=== PATIENT | male | born 1975 | race Caucasian/White ===

== ENCOUNTER → 2017-10-24 | Outpatient (CLI) | payer SELFPAY ==
[~2017-10-24] MED LIST: IOHEXOL 350 MG/ML 100 ML (OMNIPAQUE 350) VIAL IV ONE; NS 100 ML (IVPB) BAG IV ONE
--- NOTE | 2017-10-24 11:37 | Diagnostic Imaging Report ---
PROCEDURE: CT abdomen and pelvis with contrast. TECHNIQUE: Multiple contiguous axial images were obtained through the abdomen and pelvis after administration of intravenous contrast. INDICATION: Jaundice for 3-4 weeks. History of cirrhosis. FINDINGS: There are minimal areas of atelectasis seen in the lung bases. There is a 1.2 cm nodule seen in the right pericardial fat anterior to the right hemidiaphragm which may represent an enlarged lymph node. In the abdomen, there is moderate ascites. The liver is mildly enlarged and is heterogeneous with a lobulated contour suggestive of cirrhosis. There is no focal mass identified. The gallbladder demonstrates wall thickening and pericholecystic fluid which could be secondary to liver disease and ascites and not necessarily related to cholecystitis. The spleen is significantly enlarged measuring 21.4 cm anteroposteriorly. There is evidence of portal hypertension with dilated varices in the upper abdomen. Reactive lymph nodes are also suggested around the celiac trunk up to a centimeter in size. The CBD and bile ducts do not appear to be dilated. The inferior aspect of the pancreatic head demonstrates a hypodensity that is poorly defined with fluid attenuation, which may relate to cystic lesions. The kidneys have symmetric enhancement and contrast excretion. No hydronephrosis. The abdominal aorta is normal in caliber. No para-aortic significantly enlarged lymph node seen. The pelvis demonstrates mildly enlarged internal iliac lymph nodes up to 1.2 cm in size on the right side and 1 cm on the left, probably reactive. The osseous structures appear grossly unremarkable. IMPRESSION: 1. Hepatosplenomegaly with evidence of cirrhosis and portal hypertension. There is moderate ascites. 2. Hypodense lesions in the inferior aspect of the pancreatic head are suggestive of nonspecific cystic lesions. Followup exam is recommended. 3. Indeterminate 1.2 cm nodule anterior to the right hemidiaphragm and the right pericardial fat pad. This could be a reactive incidental lymph node. Dictated by: Dictated on workstation # [id number]
== END ==
LOC: RAD 09:53
PROVIDERS: ATTEND Family Medicine
DX: K74.60 Unspecified cirrhosis of liver (principal); R16.2 Hepatomegaly with splenomegaly, not elsewhere classified; K76.6 Portal hypertension; K86.89 Other specified diseases of pancreas; J98.6 Disorders of diaphragm
CPT/HCPCS: 74177

== ENCOUNTER → 2017-10-24 | Outpatient (CLI) | payer SELFPAY ==
[2017-10-24 14:05] LABS: ALANINE AMINOTRANSFERASE 67 U/L (0-55); ALBUMIN 2.4 GM/DL (3.2-4.5); ANION GAP 14 MMOL/L (5-14); ASPARTATE AMINO TRANSFERASE 113 U/L (5-34); BILIRUBIN,TOTAL 29.4 MG/DL (0.1-1.0); BLOOD UREA NITROGEN 15 MG/DL (7-18); BUN/CREATININE RATIO 13; CALCIUM 7.1 MG/DL (8.5-10.1); CARBON DIOXIDE 17 MMOL/L (21-32); CHLORIDE 101 MMOL/L (98-107); CREATININE SERUM 1.13 MG/DL (0.60-1.30); GFR ESTIMATED > 60; GLUCOSE 180 MG/DL (70-105); SODIUM 132 MMOL/L (135-145); TOTAL PROTEIN 7.1 GM/DL (6.4-8.2)
[2017-10-24 14:18] LABS: POTASSIUM 2.4 MMOL/L (3.6-5.0)
[2017-10-24 16:13] LABS: BILIRUBIN,INDIRECT 14.4 MG/DL
[2017-10-24 16:56] LABS: BILIRUBIN,DIRECT 20.8 MG/DL (0.0-0.3)
== END ==
LOC: LAB 13:25
PROVIDERS: ATTEND Family Medicine
DX: K74.60 Unspecified cirrhosis of liver (principal)
CPT/HCPCS: 36415; 80053; 80074; 82247; 82248

== ENCOUNTER 2017-10-25 08:10 | Outpatient (RCR) | payer SELFPAY ==
[2017-10-27] MEDS ORDERED: POTA10TA10 (12:48)
== END 2018-01-23 | disposition home or self-care (01) ==
LOC: LAB 08:10
PROVIDERS: ATTEND Family Medicine
DX: E87.6 Hypokalemia (principal)
CPT/HCPCS: 36415; 84132

== ENCOUNTER → 2017-10-25 | Outpatient (CLI) | payer SELFPAY ==
[~2017-10-25] MED LIST changes: -IOHEXOL 350 MG/ML 100 ML (OMNIPAQUE 350) VIAL IV ONE; -NS 100 ML (IVPB) BAG IV ONE; +POTA10TA10
[2017-10-25 08:39] LABS: MEAN PLATELET VOLUME 10.2 FL (7.4-10.4); RED BLOOD COUNT 3.21 10^6/uL (4.35-5.85); RED CELL DISTRIBUTION WIDTH 17.6 % (10.0-14.5); WHITE BLOOD COUNT 9.1 10^3/uL (4.3-11.0)
[2017-10-25 08:46] LABS: PROTHROMBIN TIME PATIENT 22.4 SEC (12.2-14.7)
== END ==
LOC: LAB 08:09
PROVIDERS: ATTEND Family Medicine
DX: K70.10 Alcoholic hepatitis without ascites (principal); K74.60 Unspecified cirrhosis of liver
CPT/HCPCS: 36415; 85027; 85610

== ENCOUNTER 2017-10-27 12:01 | Emergency (ER) | payer SELFPAY ==
[~2017-10-27] VITALS: Ht 182.9 cm; Wt 108.9 kg
[2017-10-27] MEDS ORDERED: POTA10TA10 (12:48)
[2017-10-27 12:53] LABS: BASOPHILS % (AUTO) 0 % (0-10); EOSINOPHILS # (AUTO) 0.1 10^3/uL (0.0-0.3); EOSINOPHILS % (AUTO) 1 % (0-10); HEMATOCRIT 34 % (40-54); HEMOGLOBIN 11.9 G/DL (13.3-17.7); LYMPHOCYTES # (AUTO) 1.3 X 10^3 (1.0-4.0); LYMPHOCYTES % (AUTO) 12 % (12-44); MEAN CORPUSCULAR HEMOGLOBIN 37 PG (25-34); MEAN CORPUSCULAR HGB CONC 36 G/DL (32-36); MEAN CORPUSCULAR VOLUME 104 FL (80-99); MEAN PLATELET VOLUME 10.2 FL (7.4-10.4); MONOCYTES # (AUTO) 1.2 X 10^3 (0.0-1.0); MONOCYTES % (AUTO) 11 % (0-12); NEUTROPHILS # (AUTO) 8.3 X 10^3 (1.8-7.8); NEUTROPHILS % (AUTO) 76 % (42-75); PLATELET COUNT 167 10^3/uL (130-400); RED BLOOD COUNT 3.21 10^6/uL (4.35-5.85); RED CELL DISTRIBUTION WIDTH 17.3 % (10.0-14.5); WHITE BLOOD COUNT 10.9 10^3/uL (4.3-11.0)
--- NOTE | 2017-10-27 13:01 | ED GI ---
General Chief Complaint: Abdominal/GI Problems Stated Complaint: LIVER ISSUES--REFERRED BY DR NEWMAN Nursing Triage Note: AMBULATED TO ROOM 04. STATES HE WAS SEEN AT DR KAMARA OFFICE 2 WEEKS AGO AND LABS WERE DRAWN. SENT THOSE TO . HE WAS CONTACTED BY TODAY AND TOLD TO GO TO THE NEAREST ER TO BE TRANSFERRED. PT IS EXTREMLY JAUNDICED WITH A LARGE ABD. STATES IT FEELS THOUGH A ROPE IS CUTTING THRU IS ABD. Sepsis Screen: No Definite Risk Source of Information: Patient Exam Limitations: No Limitations History of Present Illness Time Seen By Provider: 12:45 Initial Comments Here with report of swelling of his legs and abdominal distention. Patient was called by his primary doctor and the GI clinic and was instructed to go to the ER because he had significant impairment and his labs and there is concern about his overall safety and well-being. Patient has known liver failure and is currently being set up by his primary doctor with the hepatology clinic at due to this. He was a moderate drinker whiskey until one month ago when he quit. States that he has not drank sats. Unsure what happened. States that he was fine and then one day he was swollen up and his labs were bad. Denies blood in his stools. Denies vomiting. Denies breathing problems. Complains of tingling in his hands and feet and swelling of his arms and legs as well as his abdomen. Timing/Duration: 1 Week, Getting Worse Severity/Quality: Mild, Aching Location: Generalized Abdomen Radiation: No Radiation Activities at Onset: None Associated Symptoms: No Back Pain, No Chest Pain, No Fever/Chills, Fatigue, No Nausea/Vomiting, No Shortness of Air, Swelling/Mass in Abdomen, No Weakness Allergies and Home Medications Allergies Coded Allergies: No Known Drug Allergies (Unverified , 10/27/17) Home Medications Potassium Chloride 10 Meq Tablet.er, (Reported) Review of Systems Constitutional: see HPI, No chills, No fever, malaise, weakness EENTM: No Symptoms Reported Respiratory: No Symptoms Reported Cardiovascular: No Symptoms Reported Gastrointestinal: Abdomen Distended, Abdominal Pain, Denies Nausea, Denies Rectal Bleeding, Denies Vomiting Genitourinary: No Symptoms Reported Musculoskeletal: no symptoms reported Skin: see HPI, change in color, No rash Psychiatric/Neurological: Denies Anxiety, Numbness (hands and feet), Tingling, Weakness Endocrine: No Symptoms Reported All Other Systems Reviewed Negative Unless Noted: Yes Past Tykqhtv-[id number]-Jhsfpv Hx Patient Social History Alcohol Use: Regular Use Number of Drinks Today: 0 Recreational Drug Use: No Smoking Status: Current Everyday Smoker Recent Foreign Travel: No Contact w/Someone Who Travel: No Recent Infectious Disease Expo: No Recent Hopitalizations: No Surgeries History of Surgeries: No Respiratory History of Respiratory Disorde: No Cardiovascular History of Cardiac Disorders: No Neurological History of Neurological Disord: No Genitourinary History of Genitourinary Disor: No Gastrointestinal History of Gastrointestinal Di: No Musculoskeletal History of Musculoskeletal Dis: No Endocrine History of Endocrine Disorders: No HEENT History of HEENT Disorders: No Cancer History of Cancer: No Psychosocial History of Psychiatric Problem: No Integumentary History of Skin or Integumenta: No Reviewed Nursing Assessment Reviewed/Agree w Nursing PMH: Yes Family Medical History Significant Family History: No Pertinent Family Hx Physical Exam Vital Signs VS - Last 72 Hours, by Label 10/27/17 12:20 Temp 98.1 Pulse 97 Resp 18 B/P (MAP) 119/81 (94) Pulse Ox 100 O2 Delivery Room Air Capillary Refill : Less Than 3 Seconds General Appearance: WD/WN, no apparent distress HEENT: PERRL/EOMI, pharynx normal, scleral icterus (R), scleral icterus (L) Neck: full range of motion, supple Respiratory: lungs clear Cardiovascular: regular rate, rhythm, no murmur Peripheral Pulses: 2+ Dorsalis Pedis (R), 2+ Left Dors-Pedis (L), 2+ Radial Pulses (R), 2+ Radial Pulses (L) Gastrointestinal: soft, distended, tenderness (lower abdomen), other (moderate to severe abdominal ascites noted) Extremities: non-tender, normal inspection Back: normal inspection, no CVA tenderness, no vertebral tenderness ( full) Neurologic/Psychiatric: alert, oriented x 3 Skin: warm/dry, jaundice Focused Exam Evaluation Lactate Level Laboratory Tests 10/27/17 12:35: Lactic Acid Level 1.14 Lactic Acid Level Laboratory Tests Test 10/27/17 12:35 Lactic Acid Level 1.14 MMOL/L (0.50-2.00) Progress/Results/Core Measures Results/Orders Lab Results Laboratory Tests Test 10/27/17 12:35 10/27/17 13:49 Range/Units White Blood Count 10.9 4.3-11.0 10^3/uL Red Blood Count 3.21 L 4.35-5.85 10^6/uL Hemoglobin 11.9 L 13.3-17.7 G/DL Hematocrit 34 L 40-54 % Mean Corpuscular Volume 104 H 80-99 FL Mean Corpuscular Hemoglobin 37 H 25-34 PG Mean Corpuscular Hemoglobin Concent 36 32-36 G/DL Red Cell Distribution Width 17.3 H 10.0-14.5 % Platelet Count 167 130-400 10^3/uL Mean Platelet Volume 10.2 7.4-10.4 FL Neutrophils (%) (Auto) 76 H 42-75 % Lymphocytes (%) (Auto) 12 12-44 % Monocytes (%) (Auto) 11 0-12 % Eosinophils (%) (Auto) 1 0-10 % Basophils (%) (Auto) 0 0-10 % Neutrophils # (Auto) 8.3 H 1.8-7.8 X 10^3 Lymphocytes # (Auto) 1.3 1.0-4.0 X 10^3 Monocytes # (Auto) 1.2 H 0.0-1.0 X 10^3 Eosinophils # (Auto) 0.1 0.0-0.3 10^3/uL Basophils # (Auto) 0.0 0.0-0.1 10^3/uL Prothrombin Time 22.4 H 12.2-14.7 SEC INR Comment 2.0 H 0.8-1.4 Activated Partial Thromboplast Time 40 H 24-35 SEC Sodium Level 133 L 135-145 MMOL/L Potassium Level 3.3 L 3.6-5.0 MMOL/L Chloride Level 103 98-107 MMOL/L Carbon Dioxide Level 20 L 21-32 MMOL/L Anion Gap 10 5-14 MMOL/L Blood Urea Nitrogen 20 H 7-18 MG/DL Creatinine 0.92 0.60-1.30 MG/DL Estimat Glomerular Filtration Rate > 60 BUN/Creatinine Ratio 22 Glucose Level 129 H 70-105 MG/DL Lactic Acid Level 1.14 0.50-2.00 MMOL/L Calcium Level 8.0 L 8.5-10.1 MG/DL Magnesium Level 1.6 L 1.8-2.4 MG/DL Total Bilirubin 27.1 H 0.1-1.0 MG/DL Aspartate Amino Transf (AST/SGOT) 161 H 5-34 U/L Alanine Aminotransferase (ALT/SGPT) 83 H 0-55 U/L Alkaline Phosphatase 154 H 40-136 U/L Ammonia 54 H 11-32 UMOL/L Total Protein 7.3 6.4-8.2 GM/DL Albumin 2.3 L 3.2-4.5 GM/DL Lipase 197 H 8-78 U/L Acetaminophen Level < 10 L 10-30 UG/ML Serum Alcohol < 10 <10 MG/DL Urine Color KRYSTAL H Urine Clarity CLEAR Urine pH 6.5 5-9 Urine Specific [place] 1.010 L 1.016-1.022 Urine Protein 1+ H NEGATIVE Urine Glucose (UA) NEGATIVE NEGATIVE Urine Ketones NEGATIVE NEGATIVE Urine Nitrite POSITIVE H NEGATIVE Urine Bilirubin 3+ H NEGATIVE Urine Urobilinogen 12 H NORMAL MG/DL Urine Leukocyte Esterase 1+ H NEGATIVE Urine RBC (Auto) 1+ H NEGATIVE Urine RBC RARE /HPF Urine WBC RARE /HPF Urine Squamous Epithelial Cells NONE /HPF Urine Crystals NONE /LPF Urine Bacteria TRACE /HPF Urine Casts NONE /LPF Urine Mucus NEGATIVE /LPF Urine Culture Indicated YES Urine Opiates Screen NEGATIVE NEGATIVE Urine Oxycodone Screen NEGATIVE NEGATIVE Urine Methadone Screen NEGATIVE NEGATIVE Urine Propoxyphene Screen NEGATIVE NEGATIVE Urine Barbiturates Screen NEGATIVE NEGATIVE Ur Tricyclic Antidepressants Screen NEGATIVE NEGATIVE Urine Phencyclidine Screen NEGATIVE NEGATIVE Urine Amphetamines Screen NEGATIVE NEGATIVE Urine Methamphetamines Screen NEGATIVE NEGATIVE Urine Benzodiazepines Screen NEGATIVE NEGATIVE Urine Cocaine Screen NEGATIVE NEGATIVE Urine Cannabinoids Screen NEGATIVE NEGATIVE My Orders Orders - HEATHER WALTON MD Cbc With Automated Diff (10/27/17 12:28) Comprehensive Metabolic Panel (10/27/17 12:28) Lactic Acid Analyzer (10/27/17 12:28) Blood Culture (10/27/17 12:28) Sputum Culture (10/27/17 12:28) Ua Culture If Indicated (10/27/17 12:28) Protime With Inr (10/27/17 12:28) Partial Thromboplastin Time (10/27/17 12:28) Chest 1 View, Ap/Pa Only (10/27/17 12:28) O2 (10/27/17 12:28) Saline Lock/Iv-Start (10/27/17 12:28) Saline Lock/Iv-Start (10/27/17 12:28) Vital Signs Adult Sepsis Patie Q1H (10/27/17 12:28) Remove Rings In Anticipation O (10/27/17 12:28) Acetaminophen (10/27/17 12:28) Alcohol (10/27/17 12:28) Ammonia (10/27/17 12:28) Lipase (10/27/17 12:28) Magnesium (10/27/17 12:28) Urine Culture (10/27/17 13:49) Drug Screen Stat (Urine) (10/27/17 15:28) Vital Signs/I&O Vital Sign - Last 12Hours 10/27/17 12:20 Temp 98.1 Pulse 97 Resp 18 B/P (MAP) 119/81 (94) Pulse Ox 100 O2 Delivery Room Air Blood Pressure Mean: 94 Progress Note : Progress Note Seen and evaluated. IV, labs, UA, chest x-ray, ammonia, blood cultures and lactic acid ordered. Patient seems grossly aware of the severity of his current disease. I did discuss with him the need to be seen at a place where they can evaluate for significance of his liver dysfunction and for possible transplant. Patient's is amiable to that if indicated. Pending labs. Monitor patient. 1520: I did discuss the case with Dr. Newman, patient's primary care physician. He has been trying to get the patient into the hepatology clinic and it was the hepatology clinic that called the patient and instructed him to go to the ER and preferably to for further evaluation 1526: Labs complete. I have initiated transfer process with [facility]. 1552: Patient has been accepted by [facility], Dr. Regalado. I have discussed the concerns and findings with the patient and he agrees to transfer. Patient will go by [facility]. Diagnostic Imaging Diagonstic Imaging: Xray Plain Films/CT/US/NM/MRI: chest Comments NAME: SARAH KITCHEN [facility] REC#: [id number] PT STATUS: REG ER : 1975 PHYSICIAN: HEATHER WALTON MD ADMIT DATE: 10/27/17/ER Signed Date of Exam: 10/27/17 CHEST 1 VIEW, AP/PA ONLY Patient History: Jaundice, abdominal pain. Technique: Single frontal view of the chest Comparison: None FINDINGS: Lung volumes are low. There are airspace opacities in right lung base, which are most likely atelectasis, although underlying infection is difficult to exclude. Linear opacities in the left lung base are also most likely atelectasis. There is mild cardiomegaly, likely accentuated by the low lung volumes. No pneumothorax or pleural effusion is seen. IMPRESSION: 1. Bibasilar airspace opacities, right greater than left, which most likely represent atelectasis, although infection is not excluded. Dictated by: Dictated on workstation # [id number] Dict: 10/27/17 1305 Trans: 10/27/17 1308 Interpreted by: TALHA JAVED MD Electronically signed by: TALHA JAVED MD 10/27/17 1308 Diagonstic Imaging: CT Plain Films/CT/US/NM/MRI: abdomen, pelvis Comments CT results noted from previous visit and listed below. NAME: SARAH KITCHEN [facility] REC#: [id number] PT STATUS: REG CLI : 1975 PHYSICIAN: ASHLEY NEWMAN DO ADMIT DATE: 10/24/17/RAD Signed Date of Exam: 10/24/17 CT ABDOMEN/PELVIS W PROCEDURE: CT abdomen and pelvis with contrast. TECHNIQUE: Multiple contiguous axial images were obtained through the abdomen and pelvis after administration of intravenous contrast. INDICATION: Jaundice for 3-4 weeks. History of cirrhosis. FINDINGS: There are minimal areas of atelectasis seen in the lung bases. There is a 1.2 cm nodule seen in the right pericardial fat anterior to the right hemidiaphragm which may represent an enlarged lymph node. In the abdomen, there is moderate ascites. The liver is mildly enlarged and is heterogeneous with a lobulated contour suggestive of cirrhosis. There is no focal mass identified. The gallbladder demonstrates wall thickening and pericholecystic fluid which could be secondary to liver disease and ascites and not necessarily related to cholecystitis. The spleen is significantly enlarged measuring 21.4 cm anteroposteriorly. There is evidence of portal hypertension with dilated varices in the upper abdomen. Reactive lymph nodes are also suggested around the celiac trunk up to a centimeter in size. The CBD and bile ducts do not appear to be dilated. The inferior aspect of the pancreatic head demonstrates a hypodensity that is poorly defined with fluid attenuation, which may relate to cystic lesions. The kidneys have symmetric enhancement and contrast excretion. No hydronephrosis. The abdominal aorta is normal in caliber. No para-aortic significantly enlarged lymph node seen. The pelvis demonstrates mildly enlarged internal iliac lymph nodes up to 1.2 cm in size on the right side and 1 cm on the left, probably reactive. The osseous structures appear grossly unremarkable. IMPRESSION: 1. Hepatosplenomegaly with evidence of cirrhosis and portal hypertension. There is moderate ascites. 2. Hypodense lesions in the inferior aspect of the pancreatic head are suggestive of nonspecific cystic lesions. Followup exam is recommended. 3. Indeterminate 1.2 cm nodule anterior to the right hemidiaphragm and the right pericardial fat pad. This could be a reactive incidental lymph node. Dictated by: Dictated on workstation # [id number] Dict: 10/24/17 1044 Trans: 10/24/17 1156 Interpreted by: ONDINA CLINE MD Electronically signed by: ONDINA CLINE MD 10/24/17 1156 Departure Impression Impression: Primary Impression: Acute liver failure Qualified Codes: K72.00 - Acute and subacute hepatic failure without coma Additional Impressions: Hyperbilirubinemia Increased ammonia level Disposition: 02 XF [facility] HOSP Condition: Stable Transfer Time Spoke to Accepting Phy: 15:52 Transfer Time: 15:52 Transfer Facility: [place], [place], Dr. Regalado accepting Method of Transfer: EMS Departure-Patient Inst. Referrals: ASHLEY NEWMAN DO (PCP/Family) Primary Care Physician HEATHER WALTON MD Oct 27, 2017 13:01
[2017-10-27 13:05] LABS: PROTHROMBIN TIME PATIENT 22.4 SEC (12.2-14.7)
--- NOTE | 2017-10-27 13:08 | Diagnostic Imaging Report ---
Patient History: Jaundice, abdominal pain. Technique: Single frontal view of the chest Comparison: None FINDINGS: Lung volumes are low. There are airspace opacities in right lung base, which are most likely atelectasis, although underlying infection is difficult to exclude. Linear opacities in the left lung base are also most likely atelectasis. There is mild cardiomegaly, likely accentuated by the low lung volumes. No pneumothorax or pleural effusion is seen. IMPRESSION: 1. Bibasilar airspace opacities, right greater than left, which most likely represent atelectasis, although infection is not excluded. Dictated by: Dictated on workstation # [id number]
[2017-10-27 13:16] LABS: ACETAMINOPHEN < 10 UG/ML (10-30); ALANINE AMINOTRANSFERASE 83 U/L (0-55); ALBUMIN 2.3 GM/DL (3.2-4.5); ALKALINE PHOSPHATASE 154 U/L (40-136); AMMONIA 54 UMOL/L (11-32); BILIRUBIN,TOTAL 27.1 MG/DL (0.1-1.0); BUN/CREATININE RATIO 22; CARBON DIOXIDE 20 MMOL/L (21-32); CHLORIDE 103 MMOL/L (98-107); CREATININE SERUM 0.92 MG/DL (0.60-1.30); GFR ESTIMATED > 60; GLUCOSE 129 MG/DL (70-105); LIPASE 197 U/L (8-78); MAGNESIUM 1.6 MG/DL (1.8-2.4); POTASSIUM 3.3 MMOL/L (3.6-5.0); SODIUM 133 MMOL/L (135-145); TOTAL PROTEIN 7.3 GM/DL (6.4-8.2)
[2017-10-27 14:09] LABS: CLARITY,URINE CLEAR; COLOR,URINE AMBER; GLUCOSE, URINE (UA) NEGATIVE (NEGATIVE); KETONES,URINE NEGATIVE (NEGATIVE); LEUKOCYTE ESTERASE ,URINE 1+ (NEGATIVE); NITRITE,URINE POSITIVE (NEGATIVE); PH,URINE 6.5 (5-9); PROTEIN,URINE 1+ (NEGATIVE); UROBILINOGEN,URINE 12 MG/DL (NORMAL)
[2017-10-27 14:22] LABS: BACTERIA,URINE TRACE /HPF; BILIRUBIN,URINE 3+ (NEGATIVE); RBC,URINE RARE /HPF; WBC,URINE RARE /HPF
[2017-10-27 15:44] LABS: AMPHETAMINE SCREEN, URINE NEGATIVE (NEGATIVE); BARBITURATE SCREEN URINE NEGATIVE (NEGATIVE); BENZODIAZEPINES SCREEN URINE NEGATIVE (NEGATIVE); CANNABINOID SCREEN, URINE NEGATIVE (NEGATIVE); COCAINE SCREEN URINE NEGATIVE (NEGATIVE); METHADONE STAT NEGATIVE (NEGATIVE); METHAMPHETAMINE SCREEN URINE S NEGATIVE (NEGATIVE); OPIATE SCREEN URINE NEGATIVE (NEGATIVE); OXYCODONE STAT NEGATIVE (NEGATIVE); PROPOXYPHENE STAT NEGATIVE (NEGATIVE); TRICYCLIC ANTIDEPRESSANTS SCRE NEGATIVE (NEGATIVE)
[2017-10-27 17:14] VITALS: BP 129/85
== END 2017-10-27 17:14 | disposition short-term general hospital (02) ==
LOC: EDUNIT# 12:01 → ER 12:04
DX: K72.00 Acute and subacute hepatic failure without coma (principal); F17.200 Nicotine dependence, unspecified, uncomplicated
CPT/HCPCS: 36415; 71010; 80053; 80306; 80320; 80329; 81000; 82140; 83605; 83690; 83735; 85025; 85610; 85730; 87040; 87088

== ENCOUNTER → 2017-12-18 | Outpatient (CLI) | payer SELFPAY | LOC: LAB 12:14 | PROVIDERS: ATTEND Family Medicine | DX: E87.5 Hyperkalemia (principal) | CPT/HCPCS: 36415; 84132 ==

== ENCOUNTER → 2019-09-25 | Outpatient (CLI) | payer BC ==
[~2019-09-25] VITALS: Ht 182 cm; Wt 110.4 kg
[~2019-09-25] MED LIST changes: +CHOL500049 PO; +FURO20TA4 PO; +HYDR50TA76 PO; +LACT10SO5 PO; +METF-399 PO; +NF-RIFA200 PO; +OMEP20TA7 PO; +RISP2TAB83 PO; +SPIR50TA4 PO
[2019-09-25 10:29] VITALS: BP 99/51
--- NOTE | 2019-09-25 11:13 | Diagnostic Imaging Report ---
EXAMINATION: PA and lateral chest at 11:06 a.m. INDICATION: Preop. FINDINGS: The heart size is within normal limits, and the heart does seem less prominent than noted on the prior exam of 10/27/2017. The bibasilar atelectasis/infiltrate seen on the prior study has resolved. The lungs are clear. There is no sign of failure, pneumonia, or a pleural effusion. The mediastinum is not widened. The osseous structures are intact. IMPRESSION: There is no evidence for active disease. Dictated by: Dictated on workstation # [id number]
== END ==
LOC: PREOP 10:16
PROVIDERS: ATTEND Otolaryngology Otolaryngology/Facial Plastic Surgery
DX: Z01.812 Encounter for preprocedural laboratory examination (principal); Z01.811 Encounter for preprocedural respiratory examination; Z01.810 Encounter for preprocedural cardiovascular examination; J98.8 Other specified respiratory disorders
CPT/HCPCS: 71046; 93005

== ENCOUNTER 2020-03-20 17:35 | Emergency (ER) | payer BC, OTHER ==
[~2020-03-20] VITALS: Ht 182.9 cm; Wt 113.4 kg
[~2020-03-20 17:35] MED LIST changes: +ACHD5005 PO; +LACT10SO27 PO; -LACT10SO5 PO
--- NOTE | 2020-03-20 17:52 | ED General ---
General Chief Complaint: General Problems/Pain Stated Complaint: FOGGY, BODY ACHES, TIRED Source of Information: Patient Exam Limitations: No Limitations History of Present Illness Date Seen by Provider: March 20, 2020 Time Seen by Provider: 17:48 Initial Comments To ER from [facility] with reports of extreme fatigue. He states that even taking a breath makes him very fatigued. He denies fevers cough shortness of breath. He also has body aches, mental fogginess and worsening neuropathy in both legs. He was diagnosed in 2018 with cirrhosis. He states these symptoms feel similar to how he felt when he was diagnosed with cirrhosis. He follows with Dr. Enriquez from gastroenterology and [place]. He states the cirrhosis was related to alcohol use disorder. He has essentially quit drinking however he did have "one or 2 beers" 3 days ago after his sister . He has not had any alcohol use since then he states. He denies any abdominal pain. Timing/Duration: 1 Week, Getting Worse Severity: Moderate Associated Systoms: No Chest Pain, No Headaches; Malaise; No Nausea/Vomiting Allergies and Home Medications Allergies Coded Allergies: No Known Drug Allergies (Unverified , 09/25/19) Home Medications Cholecalciferol (Vitamin D3) 50,000 Unit Capsule, 50,000 UNIT PO WEEK, (Reported) Furosemide 20 Mg Tablet, 20 MG PO DAILY, (Reported) Hydrocodone Bit/Acetaminophen 1 Each Tablet, 1 TAB PO Q4H Prescribed by: BEN VERONICA on 10/10/19 1141 Hydroxyzine HCl 50 Mg Tablet, 50 MG PO HS, (Reported) Lactulose 10 Gm/15 Ml Solution, 30 ML PO HS, (Reported) Metformin HCl 1,000 Mg Tablet, 1,000 MG PO BID, (Reported) Omeprazole 20 Mg Tablet.dr, 20 MG PO DAILY, (Reported) Rifaximin 200 Mg Tablet, 600 MG PO BID, (Reported) Risperidone 2 Mg Tablet, 2 MG PO HS, (Reported) Spironolactone 50 Mg Tablet, 50 MG PO DAILY, (Reported) Patient Home Medication List Home Medication List Reviewed: Yes Review of Systems Review of Systems Constitutional: see HPI; No chills, No fever EENTM: see HPI Respiratory: no symptoms reported; No cough, No dyspnea on exertion, No short of breath Cardiovascular: see HPI; No chest pain Genitourinary: no symptoms reported Musculoskeletal: no symptoms reported Skin: no symptoms reported Psychiatric/Neurological: No Symptoms Reported Hematologic/Lymphatic: No Symptoms Reported Past [id number] Hx Patient Social History Type Used: Cigarettes 2nd Hand Smoke Exposure: Yes Recent Foreign Travel: No Contact w/Someone Who Travel: No Recent Hopitalizations: No Seasonal Allergies Seasonal Allergies: No Past Medical History Surgeries: Yes (EGD, colonoscopy) Respiratory: No Cardiac: No Neurological: No Sexually Transmitted Disease: No HIV/AIDS: No Genitourinary: No Gastrointestinal: Yes Gastroesophageal Reflux, Liver Disease/Jaundice, Cirrhosis Musculoskeletal: No Endocrine: Yes Diabetes, Non-Insulin dep HEENT: No (CONTACTS) Cancer: No Psychosocial: Yes Anxiety, Depression Integumentary: No Blood Disorders: No Adverse Reaction/Blood Tranf: No (N/A) Family Medical History No Pertinent Family Hx Physical Exam Vital Signs Vital Signs - First Documented 03/20/20 17:45 Temp 36.7 Pulse 78 Resp 17 B/P (MAP) 102/73 (83) O2 Delivery Room Air Capillary Refill : Height, Weight, BMI Height: 6'" Weight: 240lbs. oz. 108.872580mb; 33.32 BMI Method:Stated General Appearance: No Apparent Distress, WD/WN, Other (alert and oriented, participates in history of present illness, GCS 15. Conversation is appropriate.) Eyes: Bilateral Eye Normal Inspection, Bilateral Eye PERRL, Bilateral Eye EOMI HEENT: PERRL/EOMI, TMs Normal Respiratory: Normal Breath Sounds, No Accessory Muscle Use, No Respiratory Distress Cardiovascular: Regular Rate, Rhythm, Normal Peripheral Pulses Gastrointestinal: Normal Bowel Sounds, Non Tender, Soft Extremity: Normal Capillary Refill, Normal Inspection Neurologic/Psychiatric: Alert, Oriented x3 Skin: Normal Color, Warm/Dry Progress/Results/Core Measures Suspected Sepsis SIRS Temperature: Pulse: Respiratory Rate: Laboratory Tests 03/20/20 17:58: White Blood Count 2.7L Blood Pressure / Mean: Laboratory Tests 03/20/20 17:58: Creatinine 1.24, Platelet Count 55L, Total Bilirubin 1.3H Results/Orders Lab Results Laboratory Tests Test 03/20/20 17:58 03/20/20 18:05 Range/Units White Blood Count 2.7 L 4.3-11.0 10^3/uL Red Blood Count 3.65 L 4.35-5.85 10^6/uL Hemoglobin 11.4 L 13.3-17.7 G/DL Hematocrit 32 L 40-54 % Mean Corpuscular Volume 89 80-99 FL Mean Corpuscular Hemoglobin 31 25-34 PG Mean Corpuscular Hemoglobin Concent 35 32-36 G/DL Red Cell Distribution Width 16.5 H 10.0-14.5 % Platelet Count 55 L 130-400 10^3/uL Mean Platelet Volume 10.7 H 7.4-10.4 FL Neutrophils (%) (Auto) 57 42-75 % Lymphocytes (%) (Auto) 25 12-44 % Monocytes (%) (Auto) 16 H 0-12 % Eosinophils (%) (Auto) 2 0-10 % Basophils (%) (Auto) 1 0-10 % Neutrophils # (Auto) 1.6 L 1.8-7.8 X 10^3 Lymphocytes # (Auto) 0.7 L 1.0-4.0 X 10^3 Monocytes # (Auto) 0.4 0.0-1.0 X 10^3 Eosinophils # (Auto) 0.1 0.0-0.3 10^3/uL Basophils # (Auto) 0.0 0.0-0.1 10^3/uL Sodium Level 135 135-145 MMOL/L Potassium Level 4.3 3.6-5.0 MMOL/L Chloride Level 108 H 98-107 MMOL/L Carbon Dioxide Level 18 L 21-32 MMOL/L Anion Gap 9 5-14 MMOL/L Blood Urea Nitrogen 19 H 7-18 MG/DL Creatinine 1.24 0.60-1.30 MG/DL Estimat Glomerular Filtration Rate > 60 BUN/Creatinine Ratio 15 Glucose Level 168 H 70-105 MG/DL Calcium Level 9.1 8.5-10.1 MG/DL Corrected Calcium 9.5 8.5-10.1 MG/DL Total Bilirubin 1.3 H 0.1-1.0 MG/DL Aspartate Amino Transf (AST/SGOT) 32 5-34 U/L Alanine Aminotransferase (ALT/SGPT) 23 0-55 U/L Alkaline Phosphatase 82 40-136 U/L Ammonia 163 H 11-32 UMOL/L Total Protein 7.1 6.4-8.2 GM/DL Albumin 3.5 3.2-4.5 GM/DL Serum Alcohol < 10 <10 MG/DL Urine Color YELLOW Urine Clarity CLEAR Urine pH 6.5 5-9 Urine Specific [place] 1.015 L 1.016-1.022 Urine Protein NEGATIVE NEGATIVE Urine Glucose (UA) NEGATIVE NEGATIVE Urine Ketones NEGATIVE NEGATIVE Urine Nitrite NEGATIVE NEGATIVE Urine Bilirubin NEGATIVE NEGATIVE Urine Urobilinogen 2.0 < = 1.0 MG/DL Urine Leukocyte Esterase NEGATIVE NEGATIVE Urine RBC (Auto) NEGATIVE NEGATIVE Urine RBC NONE /HPF Urine WBC NONE /HPF Urine Squamous Epithelial Cells RARE /HPF Urine Crystals NONE /LPF Urine Bacteria NEGATIVE /HPF Urine Casts NONE /LPF Urine Mucus NEGATIVE /LPF Urine Culture Indicated NO Urine Opiates Screen NEGATIVE NEGATIVE Urine Oxycodone Screen NEGATIVE NEGATIVE Urine Methadone Screen NEGATIVE NEGATIVE Urine Propoxyphene Screen NEGATIVE NEGATIVE Urine Barbiturates Screen NEGATIVE NEGATIVE Ur Tricyclic Antidepressants Screen NEGATIVE NEGATIVE Urine Phencyclidine Screen NEGATIVE NEGATIVE Urine Amphetamines Screen NEGATIVE NEGATIVE Urine Methamphetamines Screen NEGATIVE NEGATIVE Urine Benzodiazepines Screen POSITIVE H NEGATIVE Urine Cocaine Screen NEGATIVE NEGATIVE Urine Cannabinoids Screen NEGATIVE NEGATIVE My Orders Orders - CHRISTOPHER SANTAMARIA [employer] Ammonia (03/20/20 17:38) Cbc With Automated Diff (03/20/20 17:38) Comprehensive Metabolic Panel (03/20/20 17:38) Ed Iv/Invasive Line Start (03/20/20 17:38) Ua Culture If Indicated (03/20/20 17:38) Alcohol (03/20/20 17:38) Drug Screen Stat (Urine) (03/20/20 17:38) Ns Iv 1000 Ml (Sodium Chloride 0.9%) (03/20/20 18:30) Vital Signs/I&O 03/20/20 17:45 Temp 36.7 Pulse 78 Resp 17 B/P (MAP) 102/73 (83) O2 Delivery Room Air Capillary Refill : Departure Communication (Admissions) UDS + for benzodiazepines. He does report Xanax use, He states he only took one of these, 0.5 mg on the day of his sister's which was essentially when his symptoms started. He states he cannot figure out why he is so fatigued. He states he has taken these before without adverse effect. Spoke with him about discontinuing the benzodiazepine class of drugs given his liver dysfunction and these are likely the etiology for his fatigue and mental cloudiness. His ammonia level is 160 something. He states he is prescribed lactulose to be taken nightly but he hasn't been taking it lately. He states he does have 2 full bottles of it home and can take this when he goes home. He is not significantly confused so there is no reason for hospitalization here. Impression Primary Impression: grade 1 hepatic encephalopathy Additional Impressions: Encephalopathy, hepatic Benzodiazepine misuse Disposition: HOME, SELF-CARE Condition: Stable Departure-Patient Inst. Decision time for Depature: 20:07 Referrals: ELIZABETH CEVALLOS MD (PCP/Family) Primary Care Physician Patient Instructions: Hepatic Encephalopathy (DC), Liver Failure Diet Add. Discharge Instructions: 1. Take the lactulose same dose as usual but 3 times a day for the next 3 days. Avoid benzodiazepine class of drugs like Xanax, Valium, Ativan as these are not metabolized very well because of your liver disease. Drink plenty of fluids. Return to ER for any worsening. All discharge instructions reviewed with patient and/or family. Voiced understanding. CHRISTOPHER SANTAMARIA [employer] March 20, 2020 17:51
[2020-03-20 18:08] LABS: BASOPHILS % (AUTO) 1 % (0-10); EOSINOPHILS # (AUTO) 0.1 10^3/uL (0.0-0.3); EOSINOPHILS % (AUTO) 2 % (0-10); HEMATOCRIT 32 % (40-54); HEMOGLOBIN 11.4 G/DL (13.3-17.7); LYMPHOCYTES # (AUTO) 0.7 X 10^3 (1.0-4.0); LYMPHOCYTES % (AUTO) 25 % (12-44); MEAN CORPUSCULAR HEMOGLOBIN 31 PG (25-34); MEAN CORPUSCULAR HGB CONC 35 G/DL (32-36); MEAN CORPUSCULAR VOLUME 89 FL (80-99); MEAN PLATELET VOLUME 10.7 FL (7.4-10.4); MONOCYTES # (AUTO) 0.4 X 10^3 (0.0-1.0); MONOCYTES % (AUTO) 16 % (0-12); NEUTROPHILS # (AUTO) 1.6 X 10^3 (1.8-7.8); NEUTROPHILS % (AUTO) 57 % (42-75); PLATELET COUNT 55 10^3/uL (130-400); RED CELL DISTRIBUTION WIDTH 16.5 % (10.0-14.5); WHITE BLOOD COUNT 2.7 10^3/uL (4.3-11.0)
[2020-03-20 18:12] LABS: BILIRUBIN,URINE NEGATIVE (NEGATIVE); CLARITY,URINE CLEAR; COLOR,URINE YELLOW; GLUCOSE, URINE (UA) NEGATIVE (NEGATIVE); KETONES,URINE NEGATIVE (NEGATIVE); LEUKOCYTE ESTERASE ,URINE NEGATIVE (NEGATIVE); NITRITE,URINE NEGATIVE (NEGATIVE); PH,URINE 6.5 (5-9); PROTEIN,URINE NEGATIVE (NEGATIVE)
[2020-03-20 18:17] LABS: ALBUMIN 3.5 GM/DL (3.2-4.5); CHLORIDE 108 MMOL/L (98-107); POTASSIUM 4.3 MMOL/L (3.6-5.0); SODIUM 135 MMOL/L (135-145)
[2020-03-20 18:19] LABS: CALCIUM 9.1 MG/DL (8.5-10.1)
[2020-03-20 18:20] LABS: GLUCOSE 168 MG/DL (70-105); TOTAL PROTEIN 7.1 GM/DL (6.4-8.2)
[2020-03-20 18:21] LABS: CARBON DIOXIDE 18 MMOL/L (21-32)
[2020-03-20 18:22] LABS: BILIRUBIN,TOTAL 1.3 MG/DL (0.1-1.0)
[2020-03-20 18:23] LABS: ALKALINE PHOSPHATASE 82 U/L (40-136)
[2020-03-20 18:24] LABS: CREATININE SERUM 1.24 MG/DL (0.60-1.30); GFR ESTIMATED > 60
[2020-03-20 18:25] LABS: BUN/CREATININE RATIO 15
[2020-03-20 18:26] LABS: ALANINE AMINOTRANSFERASE 23 U/L (0-55)
[2020-03-20 18:29] LABS: BACTERIA,URINE NEGATIVE /HPF; SQUAMOUS EPITHELIAL CELL,UR RARE /HPF
[2020-03-20] MEDS ORDERED: NS IV 1000 ML 1,000 ML IV SCH (18:30)
[2020-03-20 18:39] LABS: AMPHETAMINE SCREEN, URINE NEGATIVE (NEGATIVE); BARBITURATE SCREEN URINE NEGATIVE (NEGATIVE); BENZODIAZEPINES SCREEN URINE POSITIVE (NEGATIVE); CANNABINOID SCREEN, URINE NEGATIVE (NEGATIVE); COCAINE SCREEN URINE NEGATIVE (NEGATIVE); METHADONE STAT NEGATIVE (NEGATIVE); METHAMPHETAMINE SCREEN URINE S NEGATIVE (NEGATIVE); OPIATE SCREEN URINE NEGATIVE (NEGATIVE); OXYCODONE STAT NEGATIVE (NEGATIVE); PROPOXYPHENE STAT NEGATIVE (NEGATIVE); TRICYCLIC ANTIDEPRESSANTS SCRE NEGATIVE (NEGATIVE)
--- OUTSIDE RECORDS SUMMARY | 2020-03-20 19:35 | XMS REPORT ---
Author Author Nikolai JACINTO Organization [facility] Address [address] [place] [address] Care Team Providers Care Public Health Director Name Role Phone FELISHA JACINTO Unavailable PROBLEMS Type Condition ICD9-CM Code XCE03-XS Code Onset Dates Condition S tatus SNOMED Code Problem Fatigue, unspecified type R53.83 Acti ve 06538923 Problem Iron deficiency anemia D50.9 Active 93639932 Problem Generalized anxiety disorder F41.1 A ctive 61544063 Problem Moderate episode of recurrent major depressive disorder F33.1 Active 090996695 Problem Hepatic encephalopathy K72.90 Active 79638231 Problem Vitamin D deficiency E55.9 Active 06212125 Problem Other chronic pain G89.29 Active 8 2270803 Problem Alcoholic cirrhosis of liver without ascites K70.3 0 Active 432707972 Problem Type 2 diabetes mellitus wit hout complication, without long-term current use of insulin E11.9 Active 573515646 Problem Iron deficiency anemia due to chronic blood loss D 50.0 Active 055250055 Problem Type 2 diabetes mellitus E11.9 Activ e 67359129 Problem ADHD (attention deficit hyperactivity disorder), inattentive type F90.0 Active 36392480 ALLERGIES Substance Reaction Event Type Date Status Demerol dizziness Drug Allergy Dec, Active tramadol vomiting Non Drug Allergy Dec, Active ENCOUNTERS Encounter Location Date Diagnosis [facility] [address] [facility] [id number] [address] [place] [phone] Jan, [facility] [address] [facility] [id number] [address] [place] [phone] Jan, [facility] [address] [facility] [id number] [address] [place] [phone] Dec, [facility] [address] [facility] [id number] [address] [place] [phone] Dec, Moderate episode of recurren t major depressive disorder F33.1 ; ADHD (attention deficit hyperactivity disorder), inattentive type F90.0 and Fatigue, unspecified type R53.83 [facility] [address] [facility] [id number] [address] [place] [phone] Dec, [facility] [address] [facility] [id number] [address] [place] [phone] Nov, [facility] [address] [facility] [id number] [address] [place] [phone] Nov, Type 2 diabetes mellitus E11 .9 ; Skin infection L08.9 ; Hepatic encephalopathy K72.90 ; Pain in right shoulder M25.511 and Other chronic pain G89.29 [facility] [address] [facility] [id number] [address] [place] [phone] Nov, [facility] [address] [facility] [id number] [address] [place] [phone] Nov, [facility] [address] [facility] [id number] [address] [place] [phone] Oct, ADHD (attention deficit hype ractivity disorder), inattentive type F90.0 [facility] [address] [facility] [id number] [address] [place] [phone] Oct, Hepatic encephalopathy K72.9 0 [facility] [address] [facility] [id number] [address] [place] [phone] Oct, [facility] [address] [facility] [id number] [address] [place] [phone] Oct, [facility] [address] [facility] [id number] [address] [place] [phone] Oct, ADHD (attention deficit hype ractivity disorder), inattentive type F90.0 [facility] [address] [facility] [id number] [address] [place] [phone] Oct, [facility] [address] [facility] [id number] [address] [place] [phone] Sep, [facility] [address] [id number] [address] [place] [phone] Sep, Moderate episode of recurren t major depressive disorder F33.1 ; ADHD (attention deficit hyperactivity disorder), inattentive type F90.0 and Fatigue, unspecified type R53.83 [facility] [address] [id number] [address] [place] [phone] Aug, Alcoholic cirrhosis of liver without ascites K70.30 and Cutaneous abscess of trunk, unspecified site of trunk L02.219 [facility] [address] [facility] [id number] [address] [place] [phone] Aug, Alcoholic cirrhosis of liver without ascites K70.30 [facility] [address] [facility] [id number] [address] [place] [phone] Aug, [facility] [address] [facility] [id number] [address] [place] [phone] Aug, [facility] [address] [id number] [address] [place] [phone] Jul, Moderate episode of recurren t major depressive disorder F33.1 [facility] [address] [facility] [id number] [address] [place] [phone] Jun, Type 2 diabetes mellitus E11 .9 and Alcoholic cirrhosis of liver without ascites K70.30 [facility] [address] [facility] [id number] [address] [place] [phone] Jun, Moderate episode of recurren t major depressive disorder F33.1 [facility] [address] [id number] [address] [place] [phone] May, [facility] [address] [facility] [id number] [address] [place] [phone] May, Abscess L02.91 [facility] [address] [facility] [id number] [address] [place] [phone] May, [facility] [address] [facility] [id number] [address] [place] [phone] May, Type 2 diabetes mellitus wit hout complication, without long-term current use of insulin E11.9 [facility] [address] [id number] [address] [place] [phone] May, Type 2 diabetes mellitus wit hout complication, without long-term current use of insulin E11.9 [facility] [address] [id number] [address] [place] [phone] May, Iron deficiency anemia due t o chronic blood loss D50.0 and Fatigue, unspecified type R53.83 [facility] [address] [id number] [address] [place] [phone] May, Fatigue, unspecified type R5 3.83 [facility] [address] [id number] [address] [place] [phone] May, [facility] [address] [id number] [address] [place] [phone] May, Moderate episode of recurren t major depressive disorder F33.1 [facility] [address] [id number] [address] [place] [phone] Apr, [facility] [address] [id number] [address] [place] [phone] Apr, [facility] [address] [id number] [address] [place] [phone] Apr, Moderate episode of recurren t major depressive disorder F33.1 [facility] [address] [id number] [address] [place] [phone] Apr, Iron deficiency anemia D50.9 [facility] [address] [id number] [address] [place] [phone] Apr, [facility] [address] [id number] [address] [place] [phone] Apr, Moderate episode of recurren t major depressive disorder F33.1 [facility] [address] [id number] [address] [place] [phone] Apr, Iron deficiency anemia due t o chronic blood loss D50.0 [facility] [address] [place] [id number] [address] [place] [phone] Apr, [facility] [address] [place] [id number] [address] [place] [phone] Apr, Type 2 diabetes mellitus wit hout complication, without long-term current use of insulin E11.9 ; Iron deficiency anemia D50.9 and Breast tenderness N64.4 [facility] [address] [place] [id number] [address] [place] [phone] Mar, [facility] [address] [phone] Mar, Moderate episode of recurren t major depressive disorder F33.1 and Generalized anxiety disorder F41.1 [place] [address] [place] [id number] [address] [place] [phone] Mar, Moderate episode of recurren t major depressive disorder F33.1 [facility] [address] [place] [id number] [address] [place] [phone] February, Generalized anxiety disorder F41.1 ; Alcoholic cirrhosis of liver without ascites K70.30 ; Vitamin D deficiency E55.9 ; Iron deficiency anemia D50.9 ; Fatigue, unspecified type R53.83 ; Moderate episode of recurrent major depressive disorder F33.1 and 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 [facility] [address] [place] [id number] [address] [place] [phone] February, Iron deficiency anemia D50.9 [facility] [address] [facility] [id number] [address] [place] [id number] February, Periodontitis K05.30 [facility] [address] [place] [id number] [address] [place] [phone] February, Tooth pain K08.89 [facility] [address] [place] [id number] [address] [place] [phone] February, Type 2 diabetes mellitus wit hout complication, without long-term current use of insulin E11.9 [facility] [address] [facility] [id number] [address] [place] [phone] February, Type 2 diabetes mellitus wit hout complication, without long-term current use of insulin E11.9 [facility] [address] [facility] [id number] [address] [place] [phone] February, [facility] [address] [facility] [id number] [address] [place] [phone] February, Alcoholic cirrhosis of liver without ascites K70.30 ; Elevated glucose R73.09 ; Iron deficiency anemia D50.9 and Type 2 diabetes mellitus without complication, without long-term current use of insulin E11.9 [facility] [address] [facility] [id number] [address] [place] [phone] February, Generalized anxiety disorder F41.1 ; Alcoholic cirrhosis of liver without ascites K70.30 ; Vitamin D deficiency E55.9 ; Iron deficiency anemia D50.9 ; Fatigue, unspecified type R53.83 and Moderate episode of recurrent major depressive disorder F33.1 [facility] [address] [facility] [id number] [address] [place] [phone] February, Abscess L02.91 [facility] [address] [facility] [id number] [address] [place] [phone] February, [facility] [address] [facility] [id number] [address] [place] [phone] February, [facility] [address] [facility] [id number] [address] [place] [phone] Jan, [facility] [address] [facility] [id number] [address] [place] [phone] Jan, Generalized anxiety disorder F41.1 ; Alcoholic cirrhosis of liver without ascites K70.30 ; Vitamin D deficiency E55.9 ; Iron deficiency anemia D50.9 ; Fatigue, unspecified type R53.83 and Moderate episode of recurrent major depressive disorder F33.1 [facility] [address] [id number] [address] [place] [id number] Jan, [facility] [address] [id number] [address] [place] [phone] Jan, [facility] [address] [facility] [id number] [address] [place] [phone] Jan, Generalized anxiety disorder F41.1 ; Alcoholic cirrhosis of liver without ascites K70.30 ; Vitamin D deficiency E55.9 ; Iron deficiency anemia D50.9 ; Fatigue, unspecified type R53.83 and Moderate episode of recurrent major depressive disorder F33.1 [facility] [address] [id number] [address] [place] [phone] Jan, [facility] [address] [facility] [id number] [address] [place] [phone] Jan, Moderate episode of recurren t major depressive disorder F33.1 ; Generalized anxiety disorder F41.1 ; Alcoholic cirrhosis of liver without ascites K70.30 ; Fatigue, unspecified type R53.83 ; Vitamin D deficiency E55.9 and Iron deficiency anemia D50.9 [facility] [address] [id number] [address] [place] [phone] Dec, Elevated glucose R73.09 [facility] [address] [facility] [id number] [address] [place] [id number] Dec, Periodontitis K05.30 [facility] [address] [id number] [address] [place] [phone] Dec, Alcoholic cirrhosis of liver without ascites K70.30 and Iron deficiency anemia D50.9 [facility] [address] [id number] [address] [place] [phone] Dec, Moderate episode of recurren t major depressive disorder F33.1 and 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 [facility] [address] [id number] [address] [place] [phone] Dec, [facility] [address] [id number] [address] [place] [id number] 21 Nov, 2018 Caries K02.9 [facility] [address] [facility] [id number] [address] [place] [phone] 20 Nov, 2018 Moderate episode of recurren t major depressive disorder F33.1 and 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 [facility] [address] [facility] [id number] [address] [place] [id number] 15 Nov, 2018 Dental infection K04.7 [facility] [address] [facility] [id number] [address] [place] [phone] 15 Nov, 2018 Dental infection K04.7 [facility] [address] [facility] [id number] [address] [place] [phone] 15 Nov, 2018 [facility] [address] [facility] [id number] [address] [place] [phone] 15 Nov, 2018 Iron deficiency anemia D50.9 [facility] [address] [facility] [id number] [address] [place] [phone] 15 Nov, 2018 GI bleeding K92.2 [facility] [address] [facility] [id number] [address] [place] [phone] 14 Nov, 2018 Anemia D64.9 [facility] [address] [facility] [id number] [address] [place] [id number] 12 Nov, 2018 Caries K02.9 and Dental exam ination Z01.20 [facility] [address] [facility] [id number] [address] [place] [phone] 11 Nov, 2018 Anemia D64.9 [facility] [address] [facility] [id number] [address] [place] [phone] 11 Nov, 2018 Anemia D64.9 [facility] [address] [facility] [id number] [address] [place] [phone] 08 Nov, 2018 Alcoholic cirrhosis of liver without ascites K70.30 [facility] [address] [facility] [id number] [address] [place] [phone] 08 Nov, 2018 Alcoholic cirrhosis of liver without ascites K70.30 ; Vitamin D deficiency E55.9 and BMI 40.0-44.9, adult Z68.41 [facility] [address] [facility] [id number] [address] [place] [phone] Nov, [facility] [address] [facility] [id number] [address] [place] [phone] Oct, Fatigue, unspecified type R5 3.83 [facility] [address] [facility] [id number] [address] [place] [phone] Oct, Alcoholic cirrhosis of liver without ascites K70.30 and Gynecomastia, male N62 [facility] [address] [place] [id number] [address] [place] [phone] Oct, [facility] [address] [place] [id number] [address] [place] [phone] Oct, Moderate episode of recurren t major depressive disorder F33.1 and 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 [place] [id number] [facility] [id number] [address] [place] [phone] Sep, [facility] [address] [facility] [id number] [address] [place] [phone] Sep, Fatigue, unspecified type R5 3.83 [facility] [address] [facility] [id number] [address] [place] [phone] Sep, Moderate episode of recurren t major depressive disorder F33.1 [facility] [address] [id number] [address] [place] [phone] Sep, Fatigue, unspecified type R5 3.83 [facility] [address] [facility] [id number] [address] [place] [phone] Sep, [facility] [address] [facility] [id number] [address] [place] [phone] Sep, [facility] [address] [facility] [id number] [address] [place] [phone] Aug, Moderate episode of recurren t major depressive disorder F33.1 ; 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 and 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.899 [facility] [address] [id number] [address] [place] [phone] Aug, Alcoholic cirrhosis of liver without ascites K70.30 and Fatigue, unspecified type R53.83 [facility] [address] [id number] [address] [place] [phone] Aug, Fatigue, unspecified type R5 3.83 and Alcoholic cirrhosis of liver without ascites K70.30 [facility] [address] [id number] [address] [place] [phone] Aug, [facility] [address] [id number] [address] [place] [phone] Aug, [facility] [address] [id number] [address] [place] [phone] Jul, Moderate episode of recurren t major depressive disorder F33.1 and 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 [facility] [address] [id number] [address] [place] [phone] Jul, [facility] [address] [id number] [address] [place] [phone] Jul, Alcoholic cirrhosis of liver without ascites K70.30 [facility] [address] [id number] [address] [place] [phone] Jul, [facility] [address] [id number] [address] [place] [phone] Jul, Alcoholic cirrhosis of liver without ascites K70.30 and Moderate episode of recurrent major depressive disorder F33.1 IMMUNIZATIONS No Known Immunizations SOCIAL HISTORY Never Assessed REASON FOR VISIT SRP PLAN OF CARE VITAL SIGNS Height 70 in 2019-01-15 Blood pressure systolic 118 mmHg 2019-01-15 Blood pressure diastolic 65 mmHg 2019-01-15 MEDICATIONS Medication Instructions Dosage Frequency Start Date End Date Duration S tatus Lactulose 10 gm/15ml Orally 2 times a day 15-30 ml (titrate to 2-4 loose stools daily) 12h 15 Active Omeprazole 20 MG Orally Once a day, ac 1 capsule Nov, Active HydrOXYzine HCl 50 mg Orally once daily as needed for anxiety 1 tab let Jul, Active Xifaxan 200 MG Orally Twice a day 3 tablets 12h 10 Sep, 2018 30 days Active Risperdal 1 MG Orally twice a day 1 tablet 12h Oct, Active Spironolactone 50 mg Orally Once a day 2 tablets 24h Jul, 90 days Active Vitamin D (Ergocalciferol) 24784 UNIT Orally once weekly 1 capsule Sep, 8 weeks Active Furosemide 40 mg Oral Once a day 1 tab 24h 90 days Active RESULTS No Results PROCEDURES Procedure Date Ordered Result Body Site Periodontal scaling and root January 15, 2019 Periodontal scaling and root January 15, 2019 INSTRUCTIONS MEDICATIONS ADMINISTERED No Known Medications MEDICAL (GENERAL) HISTORY Type Description Date Medical History liver failure Medical History Hypertension Surgical History endoscopy 02/2019 Surgical History endoscopy and hemorrhoid 12/2019 Hospitalization History liver failure 10/2017
--- OUTSIDE RECORDS SUMMARY | 2020-03-20 19:35 | XMS REPORT ---
Author Author Nikolai JUAREZ [facility] Address [address] [place] [address] Care Team Providers Care Buffing Wheel Inspector Name Role Phone SHAKA JUAREZ Unavailable PROBLEMS Type Condition ICD9-CM Code FBR96-GA Code Onset Dates Condition S tatus SNOMED Code Problem Alcoholic cirrhosis of liver without ascites K70.3 0 Active 274169128 Problem Vitamin D deficiency E55.9 Active 88970278 Problem Fatigue, unspecified type R53.83 Acti ve 64281713 Problem Type 2 diabetes mellitus E11.9 Activ e 92592657 Problem Moderate episode of recurrent major depressive disorder F33.1 Active 194859418 Problem ADHD (attention deficit hyperactivity disorder), inattentive type F90.0 Active 19477939 Problem Iron deficiency anemia D50.9 Active 36036509 Problem Generalized anxiety disorder F41.1 A ctive 41712918 Problem Type 2 diabetes mellitus wit hout complication, without long-term current use of insulin E11.9 Active 604622281 Problem Iron deficiency anemia due to chronic blood loss D 50.0 Active 500239043 ALLERGIES Substance Reaction Event Type Date Status Demerol dizziness Drug Allergy Dec, Active tramadol vomiting Non Drug Allergy Dec, Active ENCOUNTERS Encounter Location Date Diagnosis [facility] [id number] [place] [address] Nov, [facility] [address] [address] Oct, [facility] [address] [address] Oct, [facility] [address] [address] Oct, [facility] [address] [address] Oct, ADHD (attention deficit hyperactivity di sorder), inattentive type F90.0 [facility] [address] [address] Oct, [facility] [address] [address] Sep, [facility] [address] [address] Sep, Moderate episode of recurrent major depr essive disorder F33.1 ; ADHD (attention deficit hyperactivity disorder), inattentive type F90.0 and Fatigue, unspecified type R53.83 [place] [address] [address] Aug, Alcoholic cirrhosis of liver without asc ites K70.30 and Cutaneous abscess of trunk, unspecified site of trunk L02.219 [place] [address] [address] Aug, Alcoholic cirrhosis of liver without asc ites K70.30 [facility] [address] [address] Aug, [facility] [address] [address] Aug, [facility] [address] [address] Jul, Moderate episode of recurrent major depr essive disorder F33.1 [place] [address] [address] Jun, Type 2 diabetes mellitus E11.9 and Alcoh olic cirrhosis of liver without ascites K70.30 [facility] [address] [address] Jun, Moderate episode of recurrent major depr essive disorder F33.1 [facility] [id number] [place] [address] May, [facility] [address] [facility] [id number] [place] [address] May, Abscess L02.91 [facility] [address] [address] May, [facility] [address] [address] May, Type 2 diabetes mellitus without complic ation, without long-term current use of insulin E11.9 [facility] [address] [address] May, Type 2 diabetes mellitus without complic ation, without long-term current use of insulin E11.9 [facility] [address] [address] May, Iron deficiency anemia due to chronic bl ood loss D50.0 and Fatigue, unspecified type R53.83 [place] [address] [address] May, Fatigue, unspecified type R53.83 [place] [address] [address] May, [facility] [address] [address] May, Moderate episode of recurrent major depr essive disorder F33.1 [place] [address] [address] Apr, [place] [address] [address] Apr, [facility] [address] [address] Apr, Moderate episode of recurrent major depr essive disorder F33.1 [place] [address] [address] Apr, Iron deficiency anemia D50.9 [facility] [address] [address] Apr, [facility] [address] [address] Apr, Moderate episode of recurrent major depr essive disorder F33.1 [place] [address] [address] Apr, Iron deficiency anemia due to chronic bl ood loss D50.0 [place] [address] [address] Apr, [place] [address] [address] Apr, Type 2 diabetes mellitus without complic ation, without long-term current use of insulin E11.9 ; Iron deficiency anemia D50.9 and Breast tenderness N64.4 [place] [address] [address] Mar, [place] [address] [address] Mar, Moderate episode of recurrent major depr essive disorder F33.1 and Generalized anxiety disorder F41.1 [place] [id number] [place] [address] Mar, Moderate episode of recurrent major depr essive disorder F33.1 [place] [address] [address] February, Generalized anxiety disorder F41.1 ; Alc oholic cirrhosis of liver without ascites K70.30 ; Vitamin D deficiency E55.9 ; Iron deficiency anemia D50.9 ; Fatigue, unspecified type R53.83 ; Moderate episode of recurrent major depressive disorder F33.1 and Other senior care (current) drug therapy Z79.899 [facility] [id number] [place] [address] February, Iron deficiency anemia D50.9 [facility] [address] [id number] [place] [id number] February, Periodontitis K05.30 [facility] [address] [facility] [id number] [place] [address] February, Tooth pain K08.89 [facility] [id number] [place] [address] February, Type 2 diabetes mellitus without complic ation, without long-term current use of insulin E11.9 [place] [address] [address] February, Type 2 diabetes mellitus without complic ation, without long-term current use of insulin E11.9 [place] [address] [address] February, [place] [address] [address] February, Alcoholic cirrhosis of liver without asc ites K70.30 ; Elevated glucose R73.09 ; Iron deficiency anemia D50.9 and Type 2 diabetes mellitus without complication, without long-term current use of insulin E11.9 [place] [address] [address] February, Generalized anxiety disorder F41.1 ; Alc oholic cirrhosis of liver without ascites K70.30 ; Vitamin D deficiency E55.9 ; Iron deficiency anemia D50.9 ; Fatigue, unspecified type R53.83 and Moderate episode of recurrent major depressive disorder F33.1 [facility] [address] [facility] [id number] [place] [address] February, Abscess L02.91 [place] [id number] [place] [address] February, [place] [address] [address] February, [facility] [address] [address] Jan, [place] [address] [address] Jan, Generalized anxiety disorder F41.1 ; Alc oholic cirrhosis of liver without ascites K70.30 ; Vitamin D deficiency E55.9 ; Iron deficiency anemia D50.9 ; Fatigue, unspecified type R53.83 and Moderate episode of recurrent major depressive disorder F33.1 [facility] [address] [id number] Jan, [facility] [address] [address] Jan, [facility] [address] [address] Jan, Generalized anxiety disorder F41.1 ; Alc oholic cirrhosis of liver without ascites K70.30 ; Vitamin D deficiency E55.9 ; Iron deficiency anemia D50.9 ; Fatigue, unspecified type R53.83 and Moderate episode of recurrent major depressive disorder F33.1 [facility] [address] [address] Jan, [facility] [address] [address] Jan, Moderate episode of recurrent major depr essive disorder F33.1 ; Generalized anxiety disorder F41.1 ; Alcoholic cirrhosis of liver without ascites K70.30 ; Fatigue, unspecified type R53.83 ; Vitamin D deficiency E55.9 and Iron deficiency anemia D50.9 [facility] [address] [address] Dec, Elevated glucose R73.09 [facility] [address] [id number] Dec, Periodontitis K05.30 [facility] [address] [address] Dec, Alcoholic cirrhosis of liver without asc ites K70.30 and Iron deficiency anemia D50.9 [facility] [address] [address] Dec, Moderate episode of recurrent major depr essive disorder F33.1 and 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 [facility] [address] [address] Dec, [facility] [address] [id number] Nov, Caries K02.9 [facility] [address] [address] 20 Nov, 2018 Moderate episode of recurrent major depr essive disorder F33.1 and 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 [facility] [address] [address] 15 Nov, 2018 Dental infection K04.7 [facility] [address] [address] 15 Nov, 2018 Dental infection K04.7 [facility] [address] [address] 15 Nov, 2018 [facility] [address] [address] 15 Nov, 2018 Iron deficiency anemia D50.9 [facility] [address] [address] 15 Nov, 2018 GI bleeding K92.2 [facility] [address] [address] 14 Nov, 2018 Anemia D64.9 [facility] [address] [id number] 12 Nov, 2018 Caries K02.9 and Dental examination Z01. 20 [facility] [address] [address] 11 Nov, 2018 Anemia D64.9 [facility] [address] [address] 11 Nov, 2018 Anemia D64.9 [facility] [address] [address] 08 Nov, 2018 Alcoholic cirrhosis of liver without asc ites K70.30 [facility] [address] [address] 08 Nov, 2018 Alcoholic cirrhosis of liver without asc ites K70.30 ; Vitamin D deficiency E55.9 and BMI 40.0-44.9, adult Z68.41 [facility] [address] [address] Nov, [facility] [address] [address] Oct, Fatigue, unspecified type R53.83 [facility] [address] [address] Oct, Alcoholic cirrhosis of liver without asc ites K70.30 and Gynecomastia, male N62 [facility] [address] [address] Oct, [place] [address] [address] Oct, Moderate episode of recurrent major depr essive disorder F33.1 and 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 [place] [address] [address] Sep, [facility] [address] [address] Sep, Fatigue, unspecified type R53.83 [place] [address] [address] Sep, Moderate episode of recurrent major depr essive disorder F33.1 [place] [address] [address] Sep, Fatigue, unspecified type R53.83 [place] [address] [address] Sep, [facility] [address] [address] Sep, [place] [address] [address] Aug, Moderate episode of recurrent major depr essive disorder F33.1 ; 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 and Other termite treater (current) drug therapy Z79.899 [place] [address] [address] Aug, Alcoholic cirrhosis of liver without asc ites K70.30 and Fatigue, unspecified type R53.83 [place] [address] [address] Aug, Fatigue, unspecified type R53.83 and Alc oholic cirrhosis of liver without ascites K70.30 [place] [address] [address] Aug, [place] [address] [address] Aug, [place] [address] [address] Jul, Moderate episode of recurrent major depr essive disorder F33.1 and 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 [place] [address] [address] Jul, [place] [address] [address] Jul, Alcoholic cirrhosis of liver without asc ites K70.30 [place] [address] [address] Jul, [place] [address] [address] Jul, Alcoholic cirrhosis of liver without asc ites K70.30 and Moderate episode of recurrent major depressive disorder F33.1 IMMUNIZATIONS No Known Immunizations SOCIAL HISTORY Never Assessed REASON FOR VISIT f/u- bird levine, AIMS and labs PLAN OF CARE Activity Details Follow Up prn Reason: f/u VITAL SIGNS Height 70 in 2019-01-14 Heart Rate 76 bpm 2019-01-14 Respiratory Rate 20 2019-01-14 Blood pressure systolic 114 mmHg 2019-01-14 Blood pressure diastolic 80 mmHg 2019-01-14 MEDICATIONS Medication Instructions Dosage Frequency Start Date End Date Duration S tatus Vitamin D (Ergocalciferol) 26503 UNIT Orally once weekly 1 capsule Sep, 8 weeks Active Xifaxan 200 MG Orally Twice a day 3 tablets 12h 10 Sep, 2018 30 days Active Risperdal 1 MG Orally twice a day 1 tablet 12h Oct, Active Spironolactone 50 mg Orally Once a day 2 tablets 24h Jul, 90 days Active Amoxicillin 500 mg Orally TID 1 capsule 8h 12 Nov, 2018 10 day(s) Not-Taking Omeprazole 20 MG Orally Once a day, ac 1 capsule 15 Nov, 2018 Active Furosemide 40 mg Oral Once a day 1 tab 24h 90 days Active Oxycodone HCl 5 MG Orally TID PRN 1 tablet Nov, Not-Taking Lactulose 10 gm/15ml Orally 2 times a day 15-30 ml (titrate to 2-4 loose stools daily) 12h 15 Active Tramadol HCl 50 MG Orally TID PRN 1 tablet as needed Nov, 9 14 days Active HydrOXYzine HCl 50 mg Orally once daily as needed for anxiety 1 tab let Jul, Active RESULTS No Results PROCEDURES No Known procedures INSTRUCTIONS MEDICATIONS ADMINISTERED No Known Medications MEDICAL (GENERAL) HISTORY Type Description Date Medical History liver failure Medical History Hypertension Surgical History endoscopy 02/2019 Hospitalization History liver failure 10/2017
--- OUTSIDE RECORDS SUMMARY | 2020-03-20 19:36 | XMS REPORT | Continuity of Care Document ---
Author Organization Unknown Address Unknown Phone Unavailable Allergies Active Description Code Type Severity Reaction Onset Reported/Identified Relationship to Patient Clinical Status Yes No Allergy Information Available [id number] Drug Allergy Unknown N/A 017 Yes No Known Drug Allergies [id number] Drug Allergy Unknown N/A 09/25/2019 Medications There is no data. 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 10/26/2017 ASHLEY NEWMAN DO Ot E87.6 HYPOKALEMIA 10/27/2017 ASHLEY NEWMAN DO Ot J98.6 DISORDERS OF DIAPHRAGM 10/27/2017 BOBBYLENASHLEY MALHOTRA DO Ot K74.60 UNSPECIFIED CIRRHOSIS OF LIVER 10/27/2017 ASHLEY NEWMAN DO Ot K76.6 PORTAL HYPERTENSION 10/27/2017 ASHLEY NEWMAN DO Ot K86.89 OTHER SPECIFIED DISEASES OF PANCREAS 10/27/2017 BOBBYLENDER DOSAHLEY Ot 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 WITH SPLENOMEGALY, 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 10/27/2017 GELLENDER DOASHLEY Ot K74.60 UNSPECIFIED CIRRHOSIS OF LIVER 10/27/2017 PATY DOASHLEY Ot K70.10 ALCOHOLIC HEPATITIS WITHOUT ASCITES 10/27/2017 ASHLEY NEWMAN DO Ot K74.60 UNSPECIFIED CIRRHOSIS OF LIVER 10/27/2017 PATY DOASHLEY Ot E87.6 HYPOKALEMIA 10/27/2017 ANTON LAU, HEATHER Watts Ot F17.200 NICOTINE DEPENDENCE, UNSPECIFIED, UNCOMP 10/27/2017 ANTON LAU, HEATHER Watts Ot K72.00 ACUTE AND SUBACUTE HEPATIC FAILURE WITHO 10/27/2017 ANTON LAU, HEATHER Watts Ot M79.89 OTHER SPECIFIED SOFT TISSUE DISORDERS 12/20/2017 GELLENDER DO, ASHLEY Lim Ot E87.5 HYPERKALEMIA 01/23/2018 GELLENDER DO, ASHLEY Lim Ot E87.6 HYPOKALEMIA 01/24/2018 GELLENDER DO, ASHLEY Lim Ot E87.6 HYPOKALEMIA 07/27/2018 GELLENDER DO, ASHLEY Lim Ot J98.6 DISORDERS OF DIAPHRAGM 07/27/2018 GELLENDER DO, ASHLEY Lim Ot K74.60 UNSPECIFIED CIRRHOSIS OF LIVER 07/27/2018 GELLENDER DO, ASHLEY Lim Ot K76.6 PORTAL HYPERTENSION 07/27/2018 GELLENDER DO, ASHLEY Lim Ot K86.89 OTHER SPECIFIED DISEASES OF PANCREAS 07/27/2018 GELLENDER DO, ASHLEY Lim Ot 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 WITH SPLENOMEGALY, 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 07/27/2018 GELLENDER DO, ASHLEY Lim Ot K74.60 UNSPECIFIED CIRRHOSIS OF LIVER 07/27/2018 GELLENDER DO, ASHLEY Lim Ot K70.10 ALCOHOLIC HEPATITIS WITHOUT ASCITES 07/27/2018 GELLENDER DO, ASHLEY Lim Ot K74.60 UNSPECIFIED CIRRHOSIS OF LIVER 09/18/2019 GELLENDER DO, ASHLEY Lim Ot E87.5 HYPERKALEMIA 09/18/2019 GELLENDER DO, ASHLEY Lim Ot E87.6 HYPOKALEMIA 09/25/2019 GELLENDER DO, ASHLEY Lim Ot E87.6 HYPOKALEMIA 09/25/2019 YULIANA ROY MD Ot J98 .8 OTHER SPECIFIED RESPIRATORY DISORDERS 09/25/2019 YULIANA ROY MD Ot Z01.810 ENCOUNTER FOR PREPROCEDURAL CARDIOVASCUL 09/25/2019 YULIANA ROY MD Ot Z01.811 ENCOUNTER FOR PREPROCEDURAL RESPIRATORY 09/25/2019 YULIANA ROY MD Ot Z01.812 ENCOUNTER FOR PREPROCEDURAL LABORATORY E 10/01/2019 YULIANA ROY MD Ot J98 .8 OTHER SPECIFIED RESPIRATORY DISORDERS 10/01/2019 YULIANA ORY MD Ot Z01.810 ENCOUNTER FOR PREPROCEDURAL CARDIOVASCUL 10/01/2019 YULIANA ROY MD Ot Z01.811 ENCOUNTER FOR PREPROCEDURAL RESPIRATORY 10/01/2019 YULIANA ROY MD, Ot Z01.812 ENCOUNTER FOR PREPROCEDURAL LABORATORY E 10/18/2019 YULIANA ROY MD Ot D14 .1 BENIGN NEOPLASM OF LARYNX 10/18/2019 YULIANA ROY MD Ot E11 .9 TYPE 2 DIABETES MELLITUS WITHOUT COMPLIC 10/18/2019 YULIANA ROY MD Ot E66 .9 OBESITY, UNSPECIFIED 10/18/2019 YULIANA ROY MD Ot F17.210 NICOTINE DEPENDENCE, CIGARETTES, UNCOMPL 10/18/2019 YULIANA ROY MD Ot F32 .9 MAJOR DEPRESSIVE DISORDER, SINGLE EPISOD 10/18/2019 YULIANA ROY MD Ot F41 .9 ANXIETY DISORDER, UNSPECIFIED 10/18/2019 YULIANA ROY MD Ot J38 .7 OTHER DISEASES OF LARYNX 10/18/2019 YULIANA ROY MD Ot K21 .9 GASTRO-ESOPHAGEAL REFLUX DISEASE WITHOUT 10/18/2019 YULIANA ROY MD Ot K72.10 CHRONIC HEPATIC FAILURE WITHOUT COMA 10/18/2019 YULIANA ROY MD Ot Z68.33 BODY MASS INDEX (BMI) 33.0-33.9, ADULT 10/18/2019 YULIANA ROY MD Ot Z79.84 NURSING HOME (CURRENT) USE OF ORAL HYPOGLYC 10/18/2019 YULIANA ROY MD Ot Z79.899 OTHER TEAM PRIMARY CARE PHYSICIAN (CURRENT) DRUG THERAPY 10/19/2019 YULIANA ROY MD Ot D14 .1 BENIGN NEOPLASM OF LARYNX 10/19/2019 YULIANA ROY MD Ot E11 .9 TYPE 2 DIABETES MELLITUS WITHOUT COMPLIC 10/19/2019 YULIANA ROY MD Ot E66 .9 OBESITY, UNSPECIFIED 10/19/2019 YULIANA ROY MD Ot F17.210 NICOTINE DEPENDENCE, CIGARETTES, UNCOMPL 10/19/2019 YULIANA ROY MD Ot F32 .9 MAJOR DEPRESSIVE DISORDER, SINGLE EPISOD 10/19/2019 YULIANA ROY MD Ot F41 .9 ANXIETY DISORDER, UNSPECIFIED 10/19/2019 YULIANA ROY MD Ot J38 .7 OTHER DISEASES OF LARYNX 10/19/2019 YULIANA ROY MD Ot K21 .9 GASTRO-ESOPHAGEAL REFLUX DISEASE WITHOUT 10/19/2019 YULIANA ROY MD Ot K72.10 CHRONIC HEPATIC FAILURE WITHOUT COMA 10/19/2019 YULIANA ROY MD Ot Z68.33 BODY MASS INDEX (BMI) 33.0-33.9, ADULT 10/19/2019 YULIANA ROY MD, Ot Z79.84 NURSING HOME (CURRENT) USE OF ORAL HYPOGLYC 10/19/2019 YULIANA ROY MD, Ot Z79.899 OTHER NURSING HOME (CURRENT) DRUG THERAPY 10/23/2019 YULIANA ROY MD, Ot D14 .1 BENIGN NEOPLASM OF LARYNX 10/23/2019 YULIANA ROY MD Ot E11 .9 TYPE 2 DIABETES MELLITUS WITHOUT COMPLIC 10/23/2019 YULIANA ROY MD, Ot E66 .9 OBESITY, UNSPECIFIED 10/23/2019 YULIANA ROY MD Ot F17.210 NICOTINE DEPENDENCE, CIGARETTES, UNCOMPL 10/23/2019 YULIANA ROY MD, Ot F32 .9 MAJOR DEPRESSIVE DISORDER, SINGLE EPISOD 10/23/2019 YULIANA ROY MD, Ot F41 .9 ANXIETY DISORDER, UNSPECIFIED 10/23/2019 YULIANA ROY MD, Ot J38 .7 OTHER DISEASES OF LARYNX 10/23/2019 YULIANA ROY MD, Ot K21 .9 GASTRO-ESOPHAGEAL REFLUX DISEASE WITHOUT 10/23/2019 YULIANA ROY MD, Ot K72.10 CHRONIC HEPATIC FAILURE WITHOUT COMA 10/23/2019 YULIANA ROY MD, Ot Z68.33 BODY MASS INDEX (BMI) 33.0-33.9, ADULT 10/23/2019 YULIANA ROY MD, Ot Z79.84 NURSING HOME (CURRENT) USE OF ORAL HYPOGLYC 10/23/2019 YULIANA ROY MD, Ot Z79.899 OTHER TEAM PRIMARY CARE PHYSICIAN (CURRENT) DRUG THERAPY Procedures There is no data. Results Test Result Range Comprehensive metabolic panel - 10/24/17 13:36 Serum or plasma sodium measurement (moles/volume) 132 mmol/L 135-145 Serum or plasma potassium measurement (moles/volume) 2.4 mmol/L 3.6-5.0 Serum or plasma chloride measurement (moles/volume) 101 mmol/L 98-107 Carbon dioxide 17 mmol/L 21-32 Serum or plasma anion gap determination (moles/volume) 14 mmol/L 5-14 Serum or plasma urea nitrogen measurement (mass/volume ) 15 mg/dL 7-18 Serum or plasma creatinine measurement (mass/volume) 1.13 mg/dL 0.60-1.30 Serum or plasma urea nitrogen/creatinine mass ratio 13 NRG Serum or plasma creatinine measurement w ith calculation of estimated glomerular filtration rate > NRG Serum or plasma glucose measurement (mass/volume) 180 mg/dL 70-105 Serum or plasma calcium measurement (mass/volume) 7.1 mg/dL 8.5-10.1 Serum or plasma total bilirubin measurement (mass/volu me) 29.4 mg/dL 0.1-1.0 Serum or plasma alkaline phosphatase nelson surement (enzymatic activity/volume) 132 U/L 40-136 Serum or plasma aspartate aminotransfera se measurement (enzymatic activity/volume) 113 U/L 5-34 Serum or plasma alanine aminotransferase measurement (enzymatic activity/volume) 67 U/L 0-55 Serum or plasma protein measurement (mass/volume) 7.1 g/dL 6.4-8.2 Serum or plasma albumin measurement (mass/volume) 2.4 g/dL 3.2-4.5 Serum or plasma conjugated bilirubin+ind irect measurement (mass/volume) - 10/24/17 13:36 Bilirubin direct 20.8 mg/dL 0.0-0.3 Serum or plasma indirect bilirubin measurement (mass/v olume) 14.4 mg/dL NR Acute hepatitis panel - 10/24/17 13:36 Confirmatory quantitative serum or plasm a hepatitis B virus surface antigen measurement Non-Reactive Non-Reactive Hepatitis A virus IgM antibody assay Non-Reactive Non- Reactive Hepatitis B virus core IgM antibody assay Non-Reac tive Non- Reactive Serum hepatitis C virus antibody detection Non-Stinnett ctive Non-Reactive Automated blood complete blood count (he mogram) panel - 10/25/17 08:25 Blood leukocytes automated count (number/volume) 9.1 10*3/uL 4.3-11.0 Blood erythrocytes automated count (number/volume) 3.21 10*6/uL 4.35-5.85 Venous blood hemoglobin measurement (mass/volume) 11.7 g/dL 13.3-17.7 Blood hematocrit (volume fraction) 33 % 40-54 Automated erythrocyte mean corpuscular volume 103 [foz_us] 80-99 Automated erythrocyte mean corpuscular h emoglobin (mass per erythrocyte) 36 pg 25-34 Automated erythrocyte mean corpuscular h emoglobin concentration measurement (mass/volume) 35 g/dL 32-36 Automated erythrocyte distribution width ratio 17. 6 % 10.0- 14.5 Automated blood platelet count (count/volume) 164 10*3/uL 130-400 Automated blood platelet mean volume measurement 10.2 [foz_us] 7.4-10.4 PT panel in platelet poor plasma by coag ulation assay - 10/25/17 08:25 Prothrombin time (PT) in platelet poor plasma by coagu lation assay 22.4 s 12.2-14.7 INR in platelet poor plasma or blood by coagulation as say 2.0 0.8-1.4 Serum or plasma potassium measurement (m oles/volume) - 10/25/17 08:25 Serum or plasma potassium measurement (moles/volume) 2.6 mmol/L 3.6-5.0 Complete blood count (CBC) with automate d white blood cell (WBC) differential - 10/27/17 12:35 Blood leukocytes automated count (number/volume) 10.9 10*3/uL 4.3-11.0 Blood erythrocytes automated count (number/volume) 3.21 10*6/uL 4.35-5.85 Venous blood hemoglobin measurement (mass/volume) 11.9 g/dL 13.3-17.7 Blood hematocrit (volume fraction) 34 % 40-54 Automated erythrocyte mean corpuscular volume 104 [foz_us] 80-99 Automated erythrocyte mean corpuscular h emoglobin (mass per erythrocyte) 37 pg 25-34 Automated erythrocyte mean corpuscular h emoglobin concentration measurement (mass/volume) 36 g/dL 32-36 Automated erythrocyte distribution width ratio 17. 3 % 10.0- 14.5 Automated blood platelet count (count/volume) 167 10*3/uL 130-400 Automated blood platelet mean volume measurement 10.2 [foz_us] 7.4-10.4 Automated blood neutrophils/100 leukocytes 76 % 42-75 Automated blood lymphocytes/100 leukocytes 12 % 12-44 Blood monocytes/100 leukocytes 11 % 0-12 Automated blood eosinophils/100 leukocytes 1 % 0-10 Automated blood basophils/100 leukocytes 0 % 0-10 Blood neutrophils automated count (number/volume) 8.3 10*3 1.8-7.8 Blood lymphocytes automated count (number/volume) 1.3 10*3 1.0-4.0 Blood monocytes automated count (number/volume) 1. 2 10*3 0.0-1.0 Automated eosinophil count 0.1 10*3/uL 0 .0-0.3 Automated blood basophil count (count/volume) 0.0 10*3/uL 0.0-0.1 Blood lactic acid measurement (moles/vol ume) - 10/27/17 12:35 Blood lactic acid measurement (moles/volume) 1.14 mmol/L 0.50-2.00 PT panel in platelet poor plasma by coag ulation assay - 10/27/17 12:35 Prothrombin time (PT) in platelet poor plasma by coagu lation assay 22.4 s 12.2-14.7 INR in platelet poor plasma or blood by coagulation as say 2.0 0.8-1.4 Activated partial thromboplastin time (a PTT) in platelet poor plasma bycoagulation assay - 10/27/17 12:35 Activated partial thromboplastin time (a PTT) in platelet poor plasma bycoagulation assay 40 s 24-35 Comprehensive metabolic panel - 10/27/17 12:35 Serum or plasma sodium measurement (moles/volume) 133 mmol/L 135-145 Serum or plasma potassium measurement (moles/volume) 3.3 mmol/L 3.6-5.0 Serum or plasma chloride measurement (moles/volume) 103 mmol/L 98-107 Carbon dioxide 20 mmol/L 21-32 Serum or plasma anion gap determination (moles/volume) 10 mmol/L 5-14 Serum or plasma urea nitrogen measurement (mass/volume ) 20 mg/dL 7-18 Serum or plasma creatinine measurement (mass/volume) 0.92 mg/dL 0.60-1.30 Serum or plasma urea nitrogen/creatinine mass ratio 22 NRG Serum or plasma creatinine measurement w ith calculation of estimated glomerular filtration rate > NRG Serum or plasma glucose measurement (mass/volume) 129 mg/dL 70-105 Serum or plasma calcium measurement (mass/volume) 8.0 mg/dL 8.5-10.1 Serum or plasma total bilirubin measurement (mass/volu me) 27.1 mg/dL 0.1-1.0 Serum or plasma alkaline phosphatase nelson surement (enzymatic activity/volume) 154 U/L 40-136 Serum or plasma aspartate aminotransfera se measurement (enzymatic activity/volume) 161 U/L 5-34 Serum or plasma alanine aminotransferase measurement (enzymatic activity/volume) 83 U/L 0-55 Serum or plasma protein measurement (mass/volume) 7.3 g/dL 6.4-8.2 Serum or plasma albumin measurement (mass/volume) 2.3 g/dL 3.2-4.5 Magnesium - 10/27/17 12:35 Magnesium 1.6 mg/dL 1.8-2.4 Lipase - 10/27/17 12:35 Lipase 197 U/L 8-78 Ammonia - 10/27/17 12:35 Ammonia 54 umol/L 11-32 Serum or plasma acetaminophen measuremen t (mass/volume) - 10/27/17 12:35 Serum or plasma acetaminophen measurement (mass/volume ) < ug/mL 10-30 Serum or plasma ethanol measurement (mas s/volume) - 10/27/17 12:35 Serum or plasma ethanol measurement (mass/volume) < mg/dL <10 Bacterial blood culture - 10/27/17 12:35 Bacterial blood culture NG NRG Bacterial blood culture - 10/27/17 13:06 Bacterial blood culture NG NRG Complete urinalysis with reflex to cultu re - 10/27/17 13:49 Urine color determination KRYSTAL NRG Urine clarity determination CLEAR NR G Urine pH measurement by test strip 6.5 5-9 Specific gravity of urine by test strip 1.010 1.016-1.022 Urine protein assay by test strip, semi-quantitative 1+ NEGATIVE Urine glucose detection by automated test strip NE GATIVE NEGATIVE Erythrocytes detection in urine sediment by light micr oscopy 1+ NEGATIVE Urine ketones detection by automated test strip NE GATIVE NEGATIVE Urine nitrite detection by test strip POSITIVE NEGATIVE Urine total bilirubin detection by test strip 3+ NEGATIVE Urine urobilinogen measurement by automated test strip (mass/volume) 12 mg/dL NORMAL Urine leukocyte esterase detection by dipstick 1+ NEGATIVE Automated urine sediment erythrocyte cou nt by microscopy (number/high power field) RARE NRG Automated urine sediment leukocyte count by microscopy (number/high power field) RARE NRG Bacteria detection in urine sediment by light microsco py TRACE NRG Squamous epithelial cells detection in u rine sediment by light microscopy NONE NRG Crystals detection in urine sediment by light microsco py NONE NRG Casts detection in urine sediment by light microscopy NONE NRG Mucus detection in urine sediment by light microscopy NEGATIVE NRG Complete urinalysis with reflex to culture YES NRG Urine drug screening test - 10/27/17 13: 49 Urine phencyclidine detection by screening method NEGATIVE NEGATIVE Urine benzodiazepines detection by screening method NEGATIVE NEGATIVE Urine cocaine detection NEGATIVE NEGATI VE Urine amphetamines detection by screening method N EGATIVE NEGATIVE Urine methamphetamine detection by screening method NEGATIVE NEGATIVE Urine cannabinoids detection by screening method N EGATIVE NEGATIVE Urine opiates detection by screening method NEGATI VE NEGATIVE Urine barbiturates detection NEGATIVE N EGATIVE Screening urine tricyclic antidepressants detection NEGATIVE NEGATIVE Urine methadone detection by screening method NEGA TIVE NEGATIVE Urine oxycodone detection NEGATIVE NEGA TIVE Urine propoxyphene detection NEGATIVE N EGATIVE Bacterial urine culture - 10/27/17 13:49 Bacterial urine culture NG NRG Serum or plasma potassium measurement (m oles/volume) - 12/18/17 12:35 Serum or plasma potassium measurement (moles/volume) 5.1 mmol/L 3.6-5.0 PLATELET ESTIMATION - 08/09/18 16:18 PLATELET ESTIMATION DECREASED ADEQUATE PLATELET ESTIMATION - 08/20/18 14:43 PLATELET ESTIMATION DECREASED ADEQUATE AMMONIA - 08/20/18 14:43 AMMONIA (P) 91 umol/L < OR = 72 TESTOSTERONE, FREE AND TOTAL - 09/26/18 09:18 TESTOSTERONE, TOTAL, LC/MS/MS 776 ng/dL 250-1100 TESTOSTERONE, FREE 30.8 pg/mL 46.0-224.0 TESTOSTERONE,BIOAVAILABLE 47.2 ng/dL 110 .0-575.0 SEX HORMONE BINDING GLOBULIN 131 nmol/L 10-50 ALBUMIN,SERUM 3.3 g/dL 3.6-5.1 TESTOSTERONE, FREE AND TOTAL - 09/26/18 10:45 TESTOSTERONE, TOTAL, LC/MS/MS 729 ng/dL 250-1100 TESTOSTERONE, FREE 26.7 pg/mL 46.0-224.0 TESTOSTERONE,BIOAVAILABLE 40.9 ng/dL 110 .0-575.0 SEX HORMONE BINDING GLOBULIN 141 nmol/L 10-50 ALBUMIN,SERUM 3.3 g/dL 3.6-5.1 AMMONIA - 09/26/18 10:54 AMMONIA (P) 122 umol/L < OR = 72 VITAMIN B12/FOLATE, SERUM PANEL - 10:57 VITAMIN B12 >2000 pg/mL 200-1100 FOLATE, SERUM 10.7 ng/mL NRG PTH (INTACT) - 10/10/18 15:03 CALCIUM 8.9 mg/dL 8.6-10.3 PARATHYROID HORMONE, INTACT 21 pg/mL 14 -64 CMP - 03/18/19 13:32 GLUCOSE 210 mg/dL 65-99 UREA NITROGEN (BUN) 17 mg/dL 7-25 CREATININE 1.06 mg/dL 0.60-1.35 eGFR NON-AFR. TRINIDADIAN 84 mL/min/1.73m2 > OR = 60 eGFR 98 mL/min/1.73m2 > OR = 60 BUN/CREATININE RATIO NOT APPLICABLE (calc) 6-22 SODIUM 131 mmol/L 135-146 POTASSIUM 4.4 mmol/L 3.5-5.3 CHLORIDE 108 mmol/L 98-110 CARBON DIOXIDE 21 mmol/L 20-32 CALCIUM 9.2 mg/dL 8.6-10.3 PROTEIN, TOTAL 7.5 g/dL 6.1-8.1 ALBUMIN 3.6 g/dL 3.6-5.1 GLOBULIN 3.9 g/dL (calc) 1.9-3.7 ALBUMIN/GLOBULIN RATIO 0.9 (calc) 1.0-2. 5 BILIRUBIN, TOTAL 1.0 mg/dL 0.2-1.2 ALKALINE PHOSPHATASE 111 U/L 40-115 AST 32 U/L 10-40 ALT 20 U/L 9-46 CBC - 01/14/19 13:32 WHITE BLOOD CELL COUNT 3.8 Thousand/uL 3 .8-10.8 RED BLOOD CELL COUNT 3.22 Million/uL 4.2 0-5.80 HEMOGLOBIN 9.6 g/dL 13.2-17.1 HEMATOCRIT 29.1 % 38.5-50.0 MCV 90.4 fL 80.0-100.0 MCH 29.8 pg 27.0-33.0 MCHC 33.0 g/dL 32.0-36.0 RDW 17.2 % 11.0-15.0 PLATELET COUNT 86 Thousand/uL 140-400 MPV 11.3 fL 7.5-12.5 ABSOLUTE NEUTROPHILS 2094 cells/uL 1500- 7800 ABSOLUTE LYMPHOCYTES 1087 cells/uL 850-3 900 ABSOLUTE MONOCYTES 475 cells/uL 200-950 ABSOLUTE EOSINOPHILS 103 cells/uL 15-500 ABSOLUTE BASOPHILS 42 cells/uL 0-200 NEUTROPHILS 55.1 % NRG LYMPHOCYTES 28.6 % NRG MONOCYTES 12.5 % NRG EOSINOPHILS 2.7 % NRG BASOPHILS 1.1 % NRG PT/INR - 01/14/19 13:32 INR 1.2 NRG PT 11.9 sec 9.0-11.5 CULTURE, ANAEROBIC AND AEROBIC - 9 17:34 CULTURE, ANAEROBIC BACTERIA W/GRAM STAIN SEE NOTE NRG CULTURE, AEROBIC BACTERIA SEE NOTE NRG CMP - 03/14/19 16:41 GLUCOSE 572 mg/dL 65-99 UREA NITROGEN (BUN) 27 mg/dL 7-25 CREATININE 1.67 mg/dL 0.60-1.35 eGFR NON-AFR. TRINIDADIAN 48 mL/min/1.73m2 > OR = 60 eGFR 56 mL/min/1.73m2 > OR = 60 BUN/CREATININE RATIO 16 (calc) 6-22 SODIUM 121 mmol/L 135-146 POTASSIUM 5.1 mmol/L 3.5-5.3 CHLORIDE 95 mmol/L 98-110 CARBON DIOXIDE 18 mmol/L 20-32 CALCIUM 9.0 mg/dL 8.6-10.3 PROTEIN, TOTAL 7.4 g/dL 6.1-8.1 ALBUMIN 3.6 g/dL 3.6-5.1 GLOBULIN 3.8 g/dL (calc) 1.9-3.7 ALBUMIN/GLOBULIN RATIO 0.9 (calc) 1.0-2. 5 BILIRUBIN, TOTAL 1.1 mg/dL 0.2-1.2 ALKALINE PHOSPHATASE 114 U/L 40-115 AST 56 U/L 10-40 ALT 34 U/L 9-46 MAGNESIUM SERUM - 03/14/19 16:41 MAGNESIUM 1.9 mg/dL 1.5-2.5 CBC - 03/14/19 16:41 WHITE BLOOD CELL COUNT 4.9 Thousand/uL 3 .8-10.8 RED BLOOD CELL COUNT 3.39 Million/uL 4.2 0-5.80 HEMOGLOBIN 10.8 g/dL 13.2-17.1 HEMATOCRIT 31.9 % 38.5-50.0 MCV 94.1 fL 80.0-100.0 MCH 31.9 pg 27.0-33.0 MCHC 33.9 g/dL 32.0-36.0 RDW 13.2 % 11.0-15.0 PLATELET COUNT 69 Thousand/uL 140-400 MPV 10.6 fL 7.5-12.5 ABSOLUTE NEUTROPHILS 2592 cells/uL 1500- 7800 ABSOLUTE LYMPHOCYTES 1480 cells/uL 850-3 900 ABSOLUTE MONOCYTES 686 cells/uL 200-950 ABSOLUTE EOSINOPHILS 103 cells/uL 15-500 ABSOLUTE BASOPHILS 39 cells/uL 0-200 NEUTROPHILS 52.9 % NRG LYMPHOCYTES 30.2 % NRG MONOCYTES 14.0 % NRG EOSINOPHILS 2.1 % NRG BASOPHILS 0.8 % NRG PLATELET ESTIMATION - 03/14/19 16:41 PLATELET ESTIMATION DECREASED ADEQUATE PDM - PAIN MGMT (PROFILE 3 WITH CONFIRMA TION) - 03/21/19 15:30 Creatinine 62.0 mg/dL > or = 20.0 pH 5.41 4.5 - 9.0 Oxidant NEGATIVE mcg/mL <200 Amphetamines NEGATIVE ng/mL <500 medMATCH Amphetamines CONSISTENT NRG Benzodiazepines NEGATIVE CONFIRMED ng/mL <100 Marijuana Metabolite NEGATIVE ng/mL <20 medMATCH Marijuana Metab CONSISTENT NRG Cocaine Metabolite NEGATIVE ng/mL <150 medMATCH Cocaine Metab CONSISTENT NRG Opiates NEGATIVE ng/mL <100 medMATCH Opiates CONSISTENT NRG Oxycodone NEGATIVE ng/mL <100 medMATCH Oxycodone CONSISTENT NRG COMMENT NRG Alphahydroxyalprazolam NEGATIVE ng/mL <25 medMATCH aOH alprazolam CONSISTENT NRG Alphahydroxymidazolam NEGATIVE ng/mL < 50 medMATCH aOH midazolam CONSISTENT NRG Alphahydroxytriazolam NEGATIVE ng/mL < 50 medMATCH aOH triazolam CONSISTENT NRG Aminoclonazepam NEGATIVE ng/mL <25 medMATCH Aminoclonazepam CONSISTENT NRG Hydroxyethylflurazepam NEGATIVE ng/mL <50 medMATCH OH,Et flurazepam CONSISTENT NR G Lorazepam NEGATIVE ng/mL <50 medMATCH Lorazepam CONSISTENT NRG Nordiazepam NEGATIVE ng/mL <50 medMATCH Nordiazepam CONSISTENT NRG Oxazepam NEGATIVE ng/mL <50 medMATCH Oxazepam CONSISTENT NRG Temazepam NEGATIVE ng/mL <50 medMATCH Temazepam CONSISTENT NRG CBC - 04/29/19 15:53 WHITE BLOOD CELL COUNT 3.6 Thousand/uL 3 .8-10.8 RED BLOOD CELL COUNT 2.87 Million/uL 4.2 0-5.80 HEMOGLOBIN 8.9 g/dL 13.2-17.1 HEMATOCRIT 26.3 % 38.5-50.0 MCV 91.6 fL 80.0-100.0 MCH 31.0 pg 27.0-33.0 MCHC 33.8 g/dL 32.0-36.0 RDW 14.8 % 11.0-15.0 PLATELET COUNT 74 Thousand/uL 140-400 MPV 10.9 fL 7.5-12.5 ABSOLUTE NEUTROPHILS 1800 cells/uL 1500- 7800 ABSOLUTE LYMPHOCYTES 1184 cells/uL 850-3 900 ABSOLUTE MONOCYTES 518 cells/uL 200-950 ABSOLUTE EOSINOPHILS 68 cells/uL 15-500 ABSOLUTE BASOPHILS 29 cells/uL 0-200 NEUTROPHILS 50 % NRG LYMPHOCYTES 32.9 % NRG MONOCYTES 14.4 % NRG EOSINOPHILS 1.9 % NRG BASOPHILS 0.8 % NRG COMMENT(S) NRG PLATELET ESTIMATION - 04/29/19 15:53 CBC - 06/17/19 14:36 WHITE BLOOD CELL COUNT 3.2 Thousand/uL 3 .8-10.8 RED BLOOD CELL COUNT 3.38 Million/uL 4.2 0-5.80 HEMOGLOBIN 10.6 g/dL 13.2-17.1 HEMATOCRIT 31.8 % 38.5-50.0 MCV 94.1 fL 80.0-100.0 MCH 31.4 pg 27.0-33.0 MCHC 33.3 g/dL 32.0-36.0 RDW 14.4 % 11.0-15.0 PLATELET COUNT 71 Thousand/uL 140-400 MPV 10.8 fL 7.5-12.5 ABSOLUTE NEUTROPHILS 1539 cells/uL 1500- 7800 ABSOLUTE LYMPHOCYTES 1098 cells/uL 850-3 900 ABSOLUTE MONOCYTES 432 cells/uL 200-950 ABSOLUTE EOSINOPHILS 112 cells/uL 15-500 ABSOLUTE BASOPHILS 19 cells/uL 0-200 NEUTROPHILS 48.1 % NRG LYMPHOCYTES 34.3 % NRG MONOCYTES 13.5 % NRG EOSINOPHILS 3.5 % NRG BASOPHILS 0.6 % NRG PLATELET ESTIMATION - 06/17/19 14:36 PLATELET ESTIMATION DECREASED ADEQUATE VITAMIN B12 - 06/17/19 14:36 VITAMIN B12 1140 pg/mL 200-1100 CMP - 06/19/19 10:22 GLUCOSE 94 mg/dL 65-99 UREA NITROGEN (BUN) 26 mg/dL 7-25 CREATININE 1.28 mg/dL 0.60-1.35 eGFR NON-AFR. TRINIDADIAN 67 mL/min/1.73m2 > OR = 60 eGFR 77 mL/min/1.73m2 > OR = 60 BUN/CREATININE RATIO 20 (calc) 6-22 SODIUM 135 mmol/L 135-146 POTASSIUM 4.1 mmol/L 3.5-5.3 CHLORIDE 106 mmol/L 98-110 CARBON DIOXIDE 20 mmol/L 20-32 CALCIUM 9.3 mg/dL 8.6-10.3 PROTEIN, TOTAL 7.2 g/dL 6.1-8.1 ALBUMIN 3.7 g/dL 3.6-5.1 GLOBULIN 3.5 g/dL (calc) 1.9-3.7 ALBUMIN/GLOBULIN RATIO 1.1 (calc) 1.0-2. 5 BILIRUBIN, TOTAL 1.9 mg/dL 0.2-1.2 ALKALINE PHOSPHATASE 99 U/L 40-115 AST 32 U/L 10-40 ALT 22 U/L 9-46 CMP - 09/17/19 12:21 GLUCOSE 113 mg/dL 65-99 UREA NITROGEN (BUN) 23 mg/dL 7-25 CREATININE 1.24 mg/dL 0.60-1.35 eGFR NON-AFR. TRINIDADIAN 69 mL/min/1.73m2 > OR = 60 eGFR 80 mL/min/1.73m2 > OR = 60 BUN/CREATININE RATIO NOT APPLICABLE (calc) 6-22 SODIUM 135 mmol/L 135-146 POTASSIUM 4.1 mmol/L 3.5-5.3 CHLORIDE 106 mmol/L 98-110 CARBON DIOXIDE 18 mmol/L 20-32 CALCIUM 9.5 mg/dL 8.6-10.3 PROTEIN, TOTAL 7.0 g/dL 6.1-8.1 ALBUMIN 3.7 g/dL 3.6-5.1 GLOBULIN 3.3 g/dL (calc) 1.9-3.7 ALBUMIN/GLOBULIN RATIO 1.1 (calc) 1.0-2. 5 BILIRUBIN, TOTAL 1.4 mg/dL 0.2-1.2 ALKALINE PHOSPHATASE 105 U/L 40-115 AST 28 U/L 10-40 ALT 18 U/L 9-46 CBC - 09/17/19 12:21 WHITE BLOOD CELL COUNT 3.2 Thousand/uL 3 .8-10.8 RED BLOOD CELL COUNT 3.60 Million/uL 4.2 0-5.80 HEMOGLOBIN 11.2 g/dL 13.2-17.1 HEMATOCRIT 32.7 % 38.5-50.0 MCV 90.8 fL 80.0-100.0 MCH 31.1 pg 27.0-33.0 MCHC 34.3 g/dL 32.0-36.0 RDW 15.1 % 11.0-15.0 PLATELET COUNT 75 Thousand/uL 140-400 MPV 11.0 fL 7.5-12.5 ABSOLUTE NEUTROPHILS 1827 cells/uL 1500- 7800 ABSOLUTE LYMPHOCYTES 848 cells/uL 850-39 00 ABSOLUTE MONOCYTES 426 cells/uL 200-950 ABSOLUTE EOSINOPHILS 70 cells/uL 15-500 ABSOLUTE BASOPHILS 29 cells/uL 0-200 NEUTROPHILS 57.1 % NRG LYMPHOCYTES 26.5 % NRG MONOCYTES 13.3 % NRG EOSINOPHILS 2.2 % NRG BASOPHILS 0.9 % NRG VITAMIN D, 25-H - 10/04/19 15:02 VITAMIN D,25-OH,TOTAL,IA 40 ng/mL 30-10 0 AMMONIA - 10/04/19 15:05 AMMONIA (P) 71 umol/L < OR = 72 Capillary blood glucose measurement by g lucometer (mass/volume) - 10/10/19 07:15 Capillary blood glucose measurement by glucometer (mas s/volume) 127 mg/dL 70-110 Methicillin resistant Staphylococcus aur eus (MRSA) screening culture - 10/10/19 07:15 Methicillin resistant Staphylococcus aureus (MRSA) scr eening culture NEG NRG Complete blood count (CBC) with automate d white blood cell (WBC) differential - 10/10/19 07:20 Blood leukocytes automated count (number/volume) 2.6 10*3/uL 4.3-11.0 Blood erythrocytes automated count (number/volume) 3.44 10*6/uL 4.35-5.85 Venous blood hemoglobin measurement (mass/volume) 10.8 g/dL 13.3-17.7 Blood hematocrit (volume fraction) 31 % 40-54 Automated erythrocyte mean corpuscular volume 91 [ foz_us] 80-99 Automated erythrocyte mean corpuscular h emoglobin (mass per erythrocyte) 31 pg 25-34 Automated erythrocyte mean corpuscular h emoglobin concentration measurement (mass/volume) 35 g/dL 32-36 Automated erythrocyte distribution width ratio 15. 1 % 10.0- 14.5 Automated blood platelet count (count/volume) 80 1 0*3/uL 130-400 Automated blood platelet mean volume measurement 9.8 [foz_us] 7.4-10.4 Automated blood neutrophils/100 leukocytes 51 % 42-75 Automated blood lymphocytes/100 leukocytes 30 % 12-44 Blood monocytes/100 leukocytes 15 % 0-12 Automated blood eosinophils/100 leukocytes 3 % 0-10 Automated blood basophils/100 leukocytes 0 % 0-10 Blood neutrophils automated count (number/volume) 1.3 10*3 1.8-7.8 Blood lymphocytes automated count (number/volume) 0.8 10*3 1.0-4.0 Blood monocytes automated count (number/volume) 0. 4 10*3 0.0-1.0 Automated eosinophil count 0.1 10*3/uL 0 .0-0.3 Automated blood basophil count (count/volume) 0.0 10*3/uL 0.0-0.1 PT panel in platelet poor plasma by coag ulation assay - 10/10/19 07:20 Prothrombin time (PT) in platelet poor plasma by coagu lation assay 16.3 s 12.2-14.7 INR in platelet poor plasma or blood by coagulation as say 1.3 0.8-1.4 Liver function panel (serum or plasma al k phos, alb, total and direct bili, total protein, ALT, AST) - 10/10/19 07:20 Serum or plasma total bilirubin measurement (mass/volu me) 1.3 mg/dL 0.1-1.0 Serum or plasma alkaline phosphatase nelson surement (enzymatic activity/volume) 93 U/L 40-136 Serum or plasma aspartate aminotransfera se measurement (enzymatic activity/volume) 25 U/L 5-34 Serum or plasma alanine aminotransferase measurement (enzymatic activity/volume) 18 U/L 0-55 Serum or plasma protein measurement (mass/volume) 6.9 g/dL 6.4-8.2 Serum or plasma albumin measurement (mass/volume) 3.5 g/dL 3.2-4.5 Bilirubin direct 0.8 mg/dL 0.0-0.3 Serum or plasma indirect bilirubin measurement (mass/v olume) 0.5 mg/dL [facility] Whole blood basic metabolic panel - 09/29 12/18 07:20 Serum or plasma sodium measurement (moles/volume) 138 mmol/L 135-145 Serum or plasma potassium measurement (moles/volume) 3.9 mmol/L 3.6-5.0 Serum or plasma chloride measurement (moles/volume) 108 mmol/L 98-107 Carbon dioxide 18 mmol/L 21-32 Serum or plasma anion gap determination (moles/volume) 12 mmol/L 5-14 Serum or plasma urea nitrogen measurement (mass/volume ) 18 mg/dL 7-18 Serum or plasma creatinine measurement (mass/volume) 1.27 mg/dL 0.60-1.30 Serum or plasma urea nitrogen/creatinine mass ratio 14 NRG Serum or plasma creatinine measurement w ith calculation of estimated glomerular filtration rate > NRG Serum or plasma glucose measurement (mass/volume) 120 mg/dL 70-105 Serum or plasma calcium measurement (mass/volume) 8.8 mg/dL 8.5-10.1 AMMONIA - 12/24/19 11:12 AMMONIA (P) 84 umol/L < OR = 72 CBC - 12/24/19 11:12 WHITE BLOOD CELL COUNT 3.1 Thousand/uL 3 .8-10.8 RED BLOOD CELL COUNT 3.62 Million/uL 4.2 0-5.80 HEMOGLOBIN 11.3 g/dL 13.2-17.1 HEMATOCRIT 32.2 % 38.5-50.0 MCV 89.0 fL 80.0-100.0 MCH 31.2 pg 27.0-33.0 MCHC 35.1 g/dL 32.0-36.0 RDW 14.9 % 11.0-15.0 PLATELET COUNT 51 Thousand/uL 140-400 MPV 10.9 fL 7.5-12.5 ABSOLUTE NEUTROPHILS 1705 cells/uL 1500- 7800 ABSOLUTE LYMPHOCYTES 818 cells/uL 850-39 00 ABSOLUTE MONOCYTES 434 cells/uL 200-950 ABSOLUTE EOSINOPHILS 112 cells/uL 15-500 ABSOLUTE BASOPHILS 31 cells/uL 0-200 NEUTROPHILS 55 % NRG LYMPHOCYTES 26.4 % NRG MONOCYTES 14.0 % NRG EOSINOPHILS 3.6 % NRG BASOPHILS 1.0 % NRG COMMENT(S) NRG CMP - 02/03/20 14:30 GLUCOSE 141 mg/dL 65-139 UREA NITROGEN (BUN) 24 mg/dL 7-25 CREATININE 1.29 mg/dL 0.60-1.35 eGFR NON-AFR. TRINIDADIAN 66 mL/min/1.73m2 > OR = 60 eGFR 77 mL/min/1.73m2 > OR = 60 BUN/CREATININE RATIO NOT APPLICABLE (calc) 6-22 SODIUM 136 mmol/L 135-146 POTASSIUM 4.3 mmol/L 3.5-5.3 CHLORIDE 105 mmol/L 98-110 CARBON DIOXIDE 22 mmol/L 20-32 CALCIUM 9.1 mg/dL 8.6-10.3 PROTEIN, TOTAL 7.4 g/dL 6.1-8.1 ALBUMIN 3.8 g/dL 3.6-5.1 GLOBULIN 3.6 g/dL (calc) 1.9-3.7 ALBUMIN/GLOBULIN RATIO 1.1 (calc) 1.0-2. 5 BILIRUBIN, TOTAL 1.7 mg/dL 0.2-1.2 ALKALINE PHOSPHATASE 95 U/L 36-130 AST 27 U/L 10-40 ALT 25 U/L 9-46 CBC - 02/03/20 14:30 WHITE BLOOD CELL COUNT 3.2 Thousand/uL 3 .8-10.8 RED BLOOD CELL COUNT 3.86 Million/uL 4.2 0-5.80 HEMOGLOBIN 12.0 g/dL 13.2-17.1 HEMATOCRIT 34.4 % 38.5-50.0 MCV 89.1 fL 80.0-100.0 MCH 31.1 pg 27.0-33.0 MCHC 34.9 g/dL 32.0-36.0 RDW 15.5 % 11.0-15.0 PLATELET COUNT 59 Thousand/uL 140-400 MPV 11.5 fL 7.5-12.5 ABSOLUTE NEUTROPHILS 1939 cells/uL 1500- 7800 ABSOLUTE LYMPHOCYTES 790 cells/uL 850-39 00 ABSOLUTE MONOCYTES 400 cells/uL 200-950 ABSOLUTE EOSINOPHILS 51 cells/uL 15-500 ABSOLUTE BASOPHILS 19 cells/uL 0-200 NEUTROPHILS 60.6 % NRG LYMPHOCYTES 24.7 % NRG MONOCYTES 12.5 % NRG EOSINOPHILS 1.6 % NRG BASOPHILS 0.6 % NRG COMMENT(S) NR Comprehensive metabolic panel - 03/20/20 17:58 Serum or plasma sodium measurement (moles/volume) 135 mmol/L 135-145 Serum or plasma potassium measurement (moles/volume) 4.3 mmol/L 3.6-5.0 Serum or plasma chloride measurement (moles/volume) 108 mmol/L 98-107 Carbon dioxide 18 mmol/L 21-32 Serum or plasma anion gap determination (moles/volume) 9 mmol/L 5-14 Serum or plasma urea nitrogen measurement (mass/volume ) 19 mg/dL 7-18 Serum or plasma creatinine measurement (mass/volume) 1.24 mg/dL 0.60-1.30 Serum or plasma urea nitrogen/creatinine mass ratio 15 NRG Serum or plasma creatinine measurement w ith calculation of estimated glomerular filtration rate > NRG Serum or plasma glucose measurement (mass/volume) 168 mg/dL 70-105 Serum or plasma calcium measurement (mass/volume) 9.1 mg/dL 8.5-10.1 Serum or plasma total bilirubin measurement (mass/volu me) 1.3 mg/dL 0.1-1.0 Serum or plasma alkaline phosphatase nelson surement (enzymatic activity/volume) 82 U/L 40-136 Serum or plasma aspartate aminotransfera se measurement (enzymatic activity/volume) 32 U/L 5-34 Serum or plasma alanine aminotransferase measurement (enzymatic activity/volume) 23 U/L 0-55 Serum or plasma protein measurement (mass/volume) 7.1 g/dL 6.4-8.2 Serum or plasma albumin measurement (mass/volume) 3.5 g/dL 3.2-4.5 CALCIUM CORRECTED 9.5 mg/dL 8.5-10.1 Complete blood count (CBC) with automate d white blood cell (WBC) differential - 03/20/20 17:58 Blood leukocytes automated count (number/volume) 2.7 10*3/uL 4.3-11.0 Blood erythrocytes automated count (number/volume) 3.65 10*6/uL 4.35-5.85 Venous blood hemoglobin measurement (mass/volume) 11.4 g/dL 13.3-17.7 Blood hematocrit (volume fraction) 32 % 40-54 Automated erythrocyte mean corpuscular volume 89 [ foz_us] 80-99 Automated erythrocyte mean corpuscular h emoglobin (mass per erythrocyte) 31 pg 25-34 Automated erythrocyte mean corpuscular h emoglobin concentration measurement (mass/volume) 35 g/dL 32-36 Automated erythrocyte distribution width ratio 16. 5 % 10.0- 14.5 Automated blood platelet count (count/volume) 55 1 0*3/uL 130-400 Automated blood platelet mean volume measurement 10.7 [foz_us] 7.4-10.4 Automated blood neutrophils/100 leukocytes 57 % 42-75 Automated blood lymphocytes/100 leukocytes 25 % 12-44 Blood monocytes/100 leukocytes 16 % 0-12 Automated blood eosinophils/100 leukocytes 2 % 0-10 Automated blood basophils/100 leukocytes 1 % 0-10 Blood neutrophils automated count (number/volume) 1.6 10*3 1.8-7.8 Blood lymphocytes automated count (number/volume) 0.7 10*3 1.0-4.0 Blood monocytes automated count (number/volume) 0. 4 10*3 0.0-1.0 Automated eosinophil count 0.1 10*3/uL 0 .0-0.3 Automated blood basophil count (count/volume) 0.0 10*3/uL 0.0-0.1 Serum or plasma ethanol measurement (mas s/volume) - 03/20/20 17:58 Serum or plasma ethanol measurement (mass/volume) < mg/dL <10 Complete urinalysis with reflex to cultu re - 03/20/20 18:05 Urine color determination YELLOW NRG Urine clarity determination CLEAR NR G Urine pH measurement by test strip 6.5 5-9 Specific gravity of urine by test strip 1.015 1.016-1.022 Urine protein assay by test strip, semi-quantitative NEGATIVE NEGATIVE Urine glucose detection by automated test strip NE GATIVE NEGATIVE Erythrocytes detection in urine sediment by light micr oscopy NEGATIVE NEGATIVE Urine ketones detection by automated test strip NE GATIVE NEGATIVE Urine nitrite detection by test strip NEGATIVE NEGATIVE Urine total bilirubin detection by test strip NEGA TIVE NEGATIVE Urine urobilinogen measurement by automated test strip (mass/volume) 2.0 mg/dL < = 1.0 Urine leukocyte esterase detection by dipstick NEG ATIVE NEGATIVE Automated urine sediment erythrocyte cou nt by microscopy (number/high power field) NONE NRG Automated urine sediment leukocyte count by microscopy (number/high power field) NONE NRG Bacteria detection in urine sediment by light microsco py NEGATIVE NRG Squamous epithelial cells detection in u rine sediment by light microscopy RARE NRG Crystals detection in urine sediment by light microsco py NONE NRG Casts detection in urine sediment by light microscopy NONE NRG Mucus detection in urine sediment by light microscopy NEGATIVE NRG Complete urinalysis with reflex to culture NO NRG Encounters ACCT No. Visit Date/Time Discharge Status Pt. Type Provider Facility Loc./Unit Complaint [id number] 02/21/2020 15:20:00 02/21/2020 23:59: 59 CLS Outpatient MART LAU, EL[facility] [id number] 02/03/2020 14:00:00 Document Registration [id number] 12/24/2019 10:40:00 Document Registration [id number] 10/04/2019 14:20:00 Document Registration [id number] 09/17/2019 11:40:00 Document Registration [id number] 06/19/2019 10:40:00 Document Registration [id number] 06/17/2019 15:00:00 Document Registration [id number] 04/29/2019 15:20:00 Document Registration [id number] 03/21/2019 14:40:00 Document Registration [id number] 03/14/2019 16:00:00 Document Registration [id number] 03/05/2019 09:40:00 Document Registration [id number] 01/14/2019 13:20:00 Document Registration [id number] 10/10/2018 15:00:00 Document Registration [id number] 09/26/2018 14:00:00 Document Registration [id number] 09/26/2018 09:00:00 Document Registration [id number] 08/20/2018 13:40:00 Document Registration [id number] 08/09/2018 15:20:00 Document Registration [id number] 10/10/2019 06:45:00 12:18:00 DIS Outpatient YULIANA ROY MD [facility] SDC LEFT EPIGLOTTIC LESION [id number] 09/25/2019 10:16:00 15:30:00 DIS Outpatient YULIANA ROY MD [facility] PREOP DIRECT LARYNGOSCOPY WIT H BIOPSY [id number] 01/24/2018 00:41:00 018 23:59:59 CLS Preadmit ASHLEY NEWMAN DO [facility] LAB HYPOKELEMIA [id number] 10/25/2017 08:10:00 018 00:01:00 DIS Outpatient ASHLEY NEWMAN DO [facility] LAB HYPOKELEMIA [id number] 12/18/2017 12:14:00 23:59:59 CLS Outpatient ASHLEY NEWMAN DO [facility] LAB HYPOKALEMIA [id number] 10/27/2017 12:04:00 17:14:00 DIS Emergency ANTON LAU, HEATHER Watts [facility] ER LIVER ISSUES--R EFERRED BY DR NEWMAN [id number] 10/25/2017 08:09:00 23:59:59 CLS Outpatient ASHLEY NEWMAN DO [facility] LAB ACUTE ALCOHOLIC HEPATITIS [id number] 10/24/2017 13:25:00 Darrell 23:59:59 CLS Outpatient ASHLEY NEWMAN DO [facility] LAB JAUNDICE [id number] 10/24/2017 09:53:00 [place]rell 23:59:59 CLS Outpatient ASHLEY NEWMAN DO [facility] RAD JAUNDICE [id number] 03/20/2020 18:18:00 Document Registration
[2020-03-20 19:58] LABS: AMMONIA 163 UMOL/L (11-32)
[2020-03-20 20:20] VITALS: BP 137/69
== END 2020-03-20 20:20 | disposition home or self-care (01) ==
LOC: EDUNIT# 17:35 → ER 17:36
DX: K72.90 Hepatic failure, unspecified without coma (principal); R53.83 Other fatigue; T42.4X5A Adverse effect of benzodiazepines, initial encounter; K21.9 Gastro-esophageal reflux disease without esophagitis; K74.60 Unspecified cirrhosis of liver; E11.9 Type 2 diabetes mellitus without complications; F41.9 Anxiety disorder, unspecified; F32.9 Major depressive disorder, single episode, unspecified; Z79.84 Long term (current) use of oral hypoglycemic drugs; Z77.22 Contact with and (suspected) exposure to environmental tobacco smoke (acute) (chronic)
CPT/HCPCS: 36415; 80053; 80306; 80320; 81000; 82140; 85025

== ENCOUNTER 2021-05-21 09:28 | Emergency (ER) | payer OTHER ==
[~2021-05-21] VITALS: Ht 182 cm; Wt 127.0 kg
[2021-05-21] MEDS ORDERED: morphine INJ 10 MG/ML 1ML (SYR OR VIAL) IV STA (09:38)
[2021-05-21 09:44] LABS: BASOPHILS % (AUTO) 1 % (0-10); EOSINOPHILS # (AUTO) 0.1 10^3/uL (0.0-0.3); EOSINOPHILS % (AUTO) 1 % (0-10); HEMATOCRIT 40 % (40-54); HEMOGLOBIN 14.6 g/dL (13.3-17.7); LYMPHOCYTES # (AUTO) 0.9 10^3/uL (1.0-4.0); LYMPHOCYTES % (AUTO) 13 % (12-44); MEAN CORPUSCULAR HEMOGLOBIN 32 pg (25-34); MEAN CORPUSCULAR HGB CONC 36 g/dL (32-36); MEAN CORPUSCULAR VOLUME 89 fL (80-99); MEAN PLATELET VOLUME 10.9 fL (9.0-12.2); MONOCYTES # (AUTO) 0.8 10^3/uL (0.0-1.0); MONOCYTES % (AUTO) 12 % (0-12); NEUTROPHILS # (AUTO) 4.8 10^3/uL (1.8-7.8); NEUTROPHILS % (AUTO) 73 % (42-75); WHITE BLOOD COUNT 6.6 10^3/uL (4.3-11.0)
--- NOTE | 2021-05-21 09:44 | ED Chest Pain ---
General Chief Complaint: Chest Pain Stated Complaint: CHEST PAIN Source: patient Exam Limitations: no limitations History of Present Illness Date Seen by Provider: May 21, 2021 Time Seen by Provider: 09:25 Initial Comments Patient to the ER by private conveyance with chief complaint he started having chest pain in his right chest nonradiating sharp, about 8:00 last night. He would not do anything particularly stressful. Is not worse with movement but it is worse with deep inspiration. No cough fever chills or diarrhea. He has had some diaphoresis. He denies a history of heart disease or lung disease. He does have a history of cirrhosis followed by Dr. Enriquez, GI and Dr. Cevallos for PCP. He smokes about 1/2 pack cigarettes a day. He denies alcohol use and denies any use of recreational drugs. Family history includes his dad had an aortic dissection in his 80s which killed him. No early onset coronary disease. Patient denies a history of aortic dilatation, diabetes, hypertension, hyperlipidemia. States his cirrhosis is related to alcohol use disorder and he has essentially quit drinking but occasionally still does have a beer. Allergies and Home Medications Allergies Coded Allergies: No Known Drug Allergies (Unverified , 09/25/19) Home Medications Cholecalciferol (Vitamin D3) 50,000 Unit Capsule, 50,000 UNIT PO WEEK, (Reported) Furosemide 20 Mg Tablet, 20 MG PO DAILY, (Reported) Hydrocodone Bit/Acetaminophen 1 Each Tablet, 1 TAB PO Q4H Prescribed by: BEN VERONICA on 10/10/19 1141 Hydroxyzine HCl 50 Mg Tablet, 50 MG PO HS, (Reported) Lactulose 10 Gm/15 Ml Solution, 30 ML PO HS, (Reported) Metformin HCl 1,000 Mg Tablet, 1,000 MG PO BID, (Reported) Omeprazole 20 Mg Tablet.dr, 20 MG PO DAILY, (Reported) Rifaximin 200 Mg Tablet, 600 MG PO BID, (Reported) Risperidone 2 Mg Tablet, 2 MG PO HS, (Reported) Spironolactone 50 Mg Tablet, 50 MG PO DAILY, (Reported) Patient Home Medication List Home Medication List Reviewed: Yes Review of Systems Review of Systems Constitutional: No chills, No fever, No malaise EENTM: No Blurred Vision, No Double Vision Respiratory: Denies Cough, Denies Shortness of Air, Denies SOA With Exertion, Denies SOA at Rest Cardiovascular: See HPI, Chest Pain; Denies Lightheadedness Gastrointestinal: Denies Abdominal Pain, Denies Constipated, Denies Diarrhea, Denies Nausea Genitourinary: Denies Burning, Denies Discharge Musculoskeletal: No back pain, No joint pain All Other Systems Reviewed Negative Unless Noted: Yes Past Npdbhfi-Rpvnes-Gmxvzd Hx Patient Social History Tobacco Use?: Yes Tobacco type used: Cigarettes Smoking Status: Current Everyday Smoker Smokeless Tobacco Frequency: Current Everyday User (Pack-a-day) Use of E-Cig and/or Vaping dev: No Substance use?: No Seasonal Allergies Seasonal Allergies: No Past Medical History Surgeries: Yes (EGD, colonoscopy) Respiratory: No Cardiac: No Neurological: No Sexually Transmitted Disease: No HIV/AIDS: No Genitourinary: No Gastrointestinal: Yes Gastroesophageal Reflux, Liver Disease/Jaundice, Cirrhosis Musculoskeletal: No Endocrine: Yes Diabetes, Non-Insulin dep HEENT: No (CONTACTS) Cancer: No Psychosocial: Yes Anxiety, Depression Integumentary: No Blood Disorders: No Adverse Reaction/Blood Tranf: No (N/A) Family Medical History No Pertinent Family Hx Physical Exam Vital Signs Vital Signs - First Documented 05/21/21 09:30 Temp 36.5 Pulse 79 Resp 19 B/P (MAP) 118/74 (89) Pulse Ox 96 O2 Delivery Room Air Capillary Refill : Height, Weight, BMI Height: 6'" Weight: 240lbs. oz. 108.782379ei; 33.00 BMI Method:Stated General Appearance: Mild Distress, Obese HEENT: PERRL/EOMI, Pharynx Normal Neck: Full Range of Motion, Normal Inspection Respiratory: Lungs Clear, Normal Breath Sounds, No Accessory Muscle Use, No Respiratory Distress Cardiovascular: Regular Rate, Rhythm, No Edema, Normal Peripheral Pulses Gastrointestinal: Non Tender, Soft Extremity: Normal Capillary Refill, Normal Inspection, No Pedal Edema Neurologic/Psychiatric: Alert, Oriented x3, No Motor/Sensory Deficits, Other (Flat affect) Skin: Normal Color, Warm/Dry Progress/Results/Core Measures Results/Orders Lab Results Laboratory Tests Test 05/21/21 09:38 05/21/21 10:12 Range/Units White Blood Count 6.6 4.3-11.0 10^3/uL Red Blood Count 4.51 4.30-5.52 10^6/uL Hemoglobin 14.6 13.3-17.7 g/dL Hematocrit 40 40-54 % Mean Corpuscular Volume 89 80-99 fL Mean Corpuscular Hemoglobin 32 25-34 pg Mean Corpuscular Hemoglobin Concent 36 32-36 g/dL Red Cell Distribution Width 14.4 10.0-14.5 % Platelet Count 55 L 130-400 10^3/uL Mean Platelet Volume 10.9 9.0-12.2 fL Immature Granulocyte % (Auto) 0 % Neutrophils (%) (Auto) 73 42-75 % Lymphocytes (%) (Auto) 13 12-44 % Monocytes (%) (Auto) 12 0-12 % Eosinophils (%) (Auto) 1 0-10 % Basophils (%) (Auto) 1 0-10 % Neutrophils # (Auto) 4.8 1.8-7.8 10^3/uL Lymphocytes # (Auto) 0.9 L 1.0-4.0 10^3/uL Monocytes # (Auto) 0.8 0.0-1.0 10^3/uL Eosinophils # (Auto) 0.1 0.0-0.3 10^3/uL Basophils # (Auto) 0.0 0.0-0.1 10^3/uL Immature Granulocyte # (Auto) 0.0 0.0-0.1 10^3/uL Prothrombin Time 15.4 H 12.2-14.7 SEC INR Comment 1.2 0.8-1.4 Activated Partial Thromboplast Time 33 24-35 SEC D-Dimer 1.59 H 0.00-0.49 UG/ML Sodium Level 134 L 135-145 MMOL/L Potassium Level 4.0 3.6-5.0 MMOL/L Chloride Level 105 98-107 MMOL/L Carbon Dioxide Level 19 L 21-32 MMOL/L Anion Gap 10 5-14 MMOL/L Blood Urea Nitrogen 15 7-18 MG/DL Creatinine 1.03 0.60-1.30 MG/DL Estimat Glomerular Filtration Rate 77 BUN/Creatinine Ratio 15 Glucose Level 349 H 70-105 MG/DL Calcium Level 8.8 8.5-10.1 MG/DL Corrected Calcium 9.2 8.5-10.1 MG/DL Magnesium Level 1.9 1.6-2.4 MG/DL Total Bilirubin 2.8 H 0.1-1.0 MG/DL Aspartate Amino Transf (AST/SGOT) 35 H 5-34 U/L Alanine Aminotransferase (ALT/SGPT) 32 0-55 U/L Alkaline Phosphatase 119 40-136 U/L Myoglobin 115.4 H 10.0-92.0 NG/ML Troponin I < 0.028 <0.028 NG/ML B-Type Natriuretic Peptide 13.5 <100.0 PG/ML Total Protein 8.0 6.4-8.2 GM/DL Albumin 3.5 3.2-4.5 GM/DL Lipase 77 8-78 U/L Serum Alcohol < 10 <10 MG/DL Urine Color YELLOW Urine Clarity CLEAR Urine pH 6.0 5-9 Urine Specific [place] 1.020 1.016-1.022 Urine Protein NEGATIVE NEGATIVE Urine Glucose (UA) 3+ H NEGATIVE Urine Ketones NEGATIVE NEGATIVE Urine Nitrite NEGATIVE NEGATIVE Urine Bilirubin NEGATIVE NEGATIVE Urine Urobilinogen 1.0 < = 1.0 MG/DL Urine Leukocyte Esterase NEGATIVE NEGATIVE Urine RBC (Auto) NEGATIVE NEGATIVE Urine RBC NONE /HPF Urine WBC RARE /HPF Urine Crystals NONE /LPF Urine Bacteria NEGATIVE /HPF Urine Casts NONE /LPF Urine Mucus NEGATIVE /LPF Urine Culture Indicated NO Urine Opiates Screen POSITIVE H NEGATIVE Urine Oxycodone Screen NEGATIVE NEGATIVE Urine Methadone Screen NEGATIVE NEGATIVE Urine Propoxyphene Screen NEGATIVE NEGATIVE Urine Barbiturates Screen NEGATIVE NEGATIVE Ur Tricyclic Antidepressants Screen NEGATIVE NEGATIVE Urine Phencyclidine Screen NEGATIVE NEGATIVE Urine Amphetamines Screen NEGATIVE NEGATIVE Urine Methamphetamines Screen NEGATIVE NEGATIVE Urine Benzodiazepines Screen NEGATIVE NEGATIVE Urine Cocaine Screen NEGATIVE NEGATIVE Urine Cannabinoids Screen NEGATIVE NEGATIVE My Orders Orders - SANKET,SARAHY J Continuous Ekg Monitoring (05/21/21 09:29) Ekg Tracing (05/21/21 09:29) Cbc With Automated Diff (05/21/21 09:38) Magnesium (05/21/21 09:38) Chest 1 View, Ap/Pa Only (05/21/21 09:38) Comprehensive Metabolic Panel (05/21/21 09:38) Myoglobin Serum (05/21/21 09:38) Protime With Inr (05/21/21 09:38) Partial Thromboplastin Time (05/21/21 09:38) O2 (05/21/21 09:38) Lipid Panel (05/22/21 06:00) Ed Iv/Invasive Line Start (05/21/21 09:38) Lipase (05/21/21 09:38) BNP (05/21/21 09:38) Troponin I (05/21/21 09:38) Aspirin Chewable Tablet (Baby Aspirin Ch (05/21/21 09:45) Morphine Injection (Morphine Injection (05/21/21 09:38) Alcohol (05/21/21 09:48) Ua Culture If Indicated (05/21/21 09:48) Drug Screen Stat (Urine) (05/21/21 09:48) Fibrin Degradation Products (05/21/21 09:38) Insulin (Regular) Human (Novolin R (Per (05/21/21 10:15) Ct Angio Chest W (05/21/21 10:12) Ed Iv/Invasive Line Start (05/21/21 10:12) Ns Iv 1000 Ml (Sodium Chloride 0.9%) (05/21/21 10:15) Morphine Injection (Morphine Injection (05/21/21 10:15) Iohexol Injection (Omnipaque 350 Mg/Ml 1 (05/21/21 10:45) Received Contrast (Hold Metformin- Contr (05/21/21 10:45) Ns (Ivpb) (Sodium Chloride 0.9% Ivpb Bag (05/21/21 10:45) Sodium Chloride Flush (Catheter Flush Sy (05/21/21 10:45) Medications Given in ED Current Medications Medications Dose Ordered Sig/Shawn Route Start Time Stop Time Status Last Admin Dose Admin Aspirin 324 mg ONCE ONCE PO 05/21/21 09:45 05/21/21 09:46 DC 05/21/21 09:44 324 MG Insulin Human Regular 5 unit ONCE ONCE SC 05/21/21 10:15 05/21/21 10:16 DC 05/21/21 10:22 5 UNIT Iohexol 100 ml ONCE ONCE IV 05/21/21 10:45 05/21/21 10:46 DC 05/21/21 11:12 88 ML Sodium Chloride 100 ml ONCE ONCE IV 05/21/21 10:45 05/21/21 10:46 DC 05/21/21 11:12 80 ML Vital Signs/I&O 05/21/21 05/21/21 09:30 09:30 Temp 36.5 Pulse 79 Resp 19 B/P (MAP) 118/74 (89) Pulse Ox 96 O2 Delivery Room Air Room Air Progress Progress Note #1: Time: 09:43 Progress Note Blood pressure is soft 118 systolic so we will do 2 of morphine and aspirin. Chest pain could be cardiogenic, pulmonary, pleuritic. It does not radiate through to his back. 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 Progress Note #2: Time: 10:11 Progress Note The patient has diabetes based on his random blood sugar of 350. We given 5 units of regular insulin. His pain is completely gone after the 2 mg of morphine. Troponin is undetectable, at least 12 hours after his initiation of pain. His D-dimer is elevated so we will get a CT angiogram and a liter of fluids. After ambulating to the bathroom the patient states his chest pain has returned so another 2 mg of morphine were ordered. Progress Note #3: Time: 15:24 Progress Note Patient had no material duration during his ER stay. His pain is gone. Suspect maybe it is pleurisy. We will have him follow-up with cardiology for outpatient follow-up in the next week or 2. Heart score 3 points HEART Pathway Score. Low risk; 0.9-1.7% 30-day MACE. Initial ECG Impression Date: May 21, 2021 Initial ECG Impression Time: 09:32 Initial ECG Rate: 71 Initial ECG Rhythm: Normal Sinus Initial ECG Intervals: Normal Initial ECG Impression: Normal Comment Normal sinus rhythm without clinically relevant ST changes. Diagnostic Imaging Diagonstic Imaging: Xray Plain Films/CT/US/NM/MRI: chest Comments [facility], [place] NAME: SARAH KITCHEN [facility] REC#: [id number] PT STATUS: REG ER : 1975 PHYSICIAN: SARAHY COLES MD ADMIT DATE: 05/21/21/ER Draft Date of Exam:05/21/21 CHEST 1 VIEW, AP/PA ONLY Clinical indication: Patient with chest pain. Exam: Chest x-ray PA view only. Comparisons: Chest x-ray dated 10/27/2017. Findings: Lungs/pleura: Lungs are clear. There is no pneumothorax. There is no pleural effusion. Mediastinum: Unremarkable. Pulmonary vasculature: Unremarkable. Heart: Unremarkable. Bones/extrathoracic soft tissue: Unremarkable. Impression: There is no radiographic evidence of acute cardiopulmonary process. Dictated on workstation # [id number] Dict: 05/21/21 1119 Trans: 05/21/21 1120 [facility] [id number] Interpreted by: WILEY JUÁREZ MD Electronically signed by: Reviewed: Reviewed by Me Diagonstic Imaging: CT (Angiogram) Plain Films/CT/US/NM/MRI: chest Comments [facility], [place] NAME: SARAH KITCHEN [facility] REC#: [id number] PT STATUS: REG ER : 1975 PHYSICIAN: SARAHY COLES MD ADMIT DATE: 05/21/21/ER Draft Date of Exam:05/21/21 CT ANGIO CHEST W CLINICAL INDICATION: Patient with chest pain that started yesterday around 2000 hours. Pain located in the right upper chest and 8 out of 10 when taking a deep breath. EXAM: CT angiogram of the chest performed with 88 cc Omnipaque 350 IV contrast. Coronal and oblique MIP images of the vasculature were created to better evaluate anatomy. Auto Exposure Controls were utilized during the CT exam to meet ALARA standards for radiation dose reduction. COMPARISON: Chest x-ray dated 05/21/2021. FINDINGS: There is motion artifact and atelectasis which limits evaluation of the distal subsegmental pulmonary arteries. There is no evidence of pulmonary embolism. There is no thoracic aortic dissection or aneurysm. There is mild atelectasis involving the posterior aspects of both lungs. There is no definite lung infiltrate. Lungs are clear. There is no pleural effusion or pneumothorax. There is no mediastinal or axillary lymphadenopathy. Mediastinal structures and heart shows no significant abnormality. Splenomegaly is partially visualized. Prominent lymph nodes in the visualized christina hepatis and gastrohepatic ligament region are again noted. There is lobulated appearance of liver which may be related to cirrhosis. There are degenerative spurs involving the thoracic spine. IMPRESSION: 1: There is no evidence of pulmonary embolism. There is no thoracic aortic aneurysm or dissection. 2: There is mild atelectasis involving both lung bases. 3: Again seen splenomegaly and liver findings which may represent cirrhosis. Dictated on workstation # [id number] Dict: 05/21/21 1134 Trans: 05/21/21 1208 [facility] [id number] Interpreted by: WILEY JUÁREZ MD Electronically signed by: Reviewed: Reviewed by Me Departure Impression Primary Impression: Chest pain, pleuritic Disposition: 01 HOME, SELF-CARE Condition: Stable Departure-Patient Inst. Decision time for Depature: 15:27 Referrals: REGIS FERNANDEZ MD [facility] ELIZABETH CEVALLOS MD (PCP/Family) Primary Care Physician Patient Instructions: Chest Pain, Adult ED, Pleuritic Chest Pain Add. Discharge Instructions: I suspect your chest pain is related to irritation of the lining of your lungs but I have not found any significant evidence of pneumonia or other reasons why. It could be viral or something you inhaled such as some microscopic dust. Ibuprofen 600 mg every 8 hours as necessary for pain. Topical creams such as icy hot or Biofreeze. Call Dr. Fernandez, clinic assistant and follow-up in the next week for recheck. If the pain becomes severe or you have severe shortness of breath then please return to the ER sooner. Hydrocodone 1 tablet every 6 hours as necessary for severe breakthrough pain. Can cause constipation as well as drowsiness so use it sparingly. MiraLAX and/or Colace can help maintain regular bowels. All discharge instructions reviewed with patient and/or family. Voiced understanding. Scripts Hydrocodone/Acetaminophen (Hydrocodone-Acetamin 5-325 mg) 1 Each Tablet 1 TAB PO Q6H PRN for PAIN-MODERATE (5-7), #10 TAB 0 Refills Prov: SARAHY COLES 05/21/21 Copy Copies To 1: REGIS FERNANDEZ MD [facility] SARAHY COLES May 21, 2021 09:44
[2021-05-21] MEDS ORDERED: ASPIRIN 81 MG CHEW (CHILDREN'S ASA) PO ONE (09:45)
[2021-05-21 09:46] LABS: PLATELET COUNT 55 10^3/uL (130-400)
[2021-05-21 09:54] LABS: ALBUMIN 3.5 GM/DL (3.2-4.5)
[2021-05-21 09:56] LABS: CALCIUM 8.8 MG/DL (8.5-10.1)
[2021-05-21 09:59] LABS: BILIRUBIN,TOTAL 2.8 MG/DL (0.1-1.0)
[2021-05-21 10:00] LABS: CREATININE SERUM 1.03 MG/DL (0.60-1.30); FIBRIN DEGRADATION PRODUCTS 1.59 UG/ML (0.00-0.49); INR 1.2 (0.8-1.4); PROTHROMBIN TIME PATIENT 15.4 SEC (12.2-14.7)
[2021-05-21 10:03] LABS: MAGNESIUM 1.9 MG/DL (1.6-2.4)
[2021-05-21] MEDS ORDERED: morphine INJ 10 MG/ML 1ML (SYR OR VIAL) IVP STA (10:15)
[2021-05-21] MEDS ORDERED: inSUlin (REGULAR) HUMAN 1 UNIT/0.01 ML (CHARGE PER UNIT) SC ONE (10:15)
[2021-05-21] MEDS ORDERED: NS IV 1000 ML 1,000 ML IV SCH (10:15)
[2021-05-21 10:29] LABS: BILIRUBIN,URINE NEGATIVE (NEGATIVE); CLARITY,URINE CLEAR; COLOR,URINE YELLOW; GLUCOSE, URINE (UA) 3+ (NEGATIVE); KETONES,URINE NEGATIVE (NEGATIVE); LEUKOCYTE ESTERASE ,URINE NEGATIVE (NEGATIVE); NITRITE,URINE NEGATIVE (NEGATIVE); PROTEIN,URINE NEGATIVE (NEGATIVE)
[2021-05-21 10:42] LABS: AMPHETAMINE SCREEN, URINE NEGATIVE (NEGATIVE); BARBITURATE SCREEN URINE NEGATIVE (NEGATIVE); BENZODIAZEPINES SCREEN URINE NEGATIVE (NEGATIVE); CANNABINOID SCREEN, URINE NEGATIVE (NEGATIVE); COCAINE SCREEN URINE NEGATIVE (NEGATIVE); METHADONE STAT NEGATIVE (NEGATIVE); METHAMPHETAMINE SCREEN URINE S NEGATIVE (NEGATIVE); OPIATE SCREEN URINE POSITIVE (NEGATIVE); OXYCODONE STAT NEGATIVE (NEGATIVE); PROPOXYPHENE STAT NEGATIVE (NEGATIVE); TRICYCLIC ANTIDEPRESSANTS SCRE NEGATIVE (NEGATIVE)
[2021-05-21 10:44] LABS: BACTERIA,URINE NEGATIVE /HPF; WBC,URINE RARE /HPF
[2021-05-21] MEDS ORDERED: IOHEXOL 350 MG/ML 100 ML (OMNIPAQUE 350) VIAL IV ONE (10:45)
[2021-05-21] MEDS ORDERED: NS 100 ML (IVPB) BAG IV ONE (10:45)
[2021-05-21] MEDS ORDERED: CATHETER FLUSH 10 ML SYR IV PRN (10:45)
[2021-05-21] MEDS ORDERED: HOLD METFORMIN - RECEIVED CONTRAST 20 ML VIAL IV SCH (10:45)
--- NOTE | 2021-05-21 11:20 | Diagnostic Imaging Report ---
Clinical indication: Patient with chest pain. Exam: Chest x-ray PA view only. Comparisons: Chest x-ray dated 10/27/2017. Findings: Lungs/pleura: Lungs are clear. There is no pneumothorax. There is no pleural effusion. Mediastinum: Unremarkable. Pulmonary vasculature: Unremarkable. Heart: Unremarkable. Bones/extrathoracic soft tissue: Unremarkable. Impression: There is no radiographic evidence of acute cardiopulmonary process. Dictated by: Dictated on workstation # [id number]
--- NOTE | 2021-05-21 12:08 | Diagnostic Imaging Report ---
CLINICAL INDICATION: Patient with chest pain that started yesterday around 2000 hours. Pain located in the right upper chest and 8 out of 10 when taking a deep breath. EXAM: CT angiogram of the chest performed with 88 cc Omnipaque 350 IV contrast. Coronal and oblique MIP images of the vasculature were created to better evaluate anatomy. Auto Exposure Controls were utilized during the CT exam to meet ALARA standards for radiation dose reduction. COMPARISON: Chest x-ray dated 05/21/2021. FINDINGS: There is motion artifact and atelectasis which limits evaluation of the distal subsegmental pulmonary arteries. There is no evidence of pulmonary embolism. There is no thoracic aortic dissection or aneurysm. There is mild atelectasis involving the posterior aspects of both lungs. There is no definite lung infiltrate. Lungs are clear. There is no pleural effusion or pneumothorax. There is no mediastinal or axillary lymphadenopathy. Mediastinal structures and heart shows no significant abnormality. Splenomegaly is partially visualized. Prominent lymph nodes in the visualized christina hepatis and gastrohepatic ligament region are again noted. There is lobulated appearance of liver which may be related to cirrhosis. There are degenerative spurs involving the thoracic spine. IMPRESSION: 1: There is no evidence of pulmonary embolism. There is no thoracic aortic aneurysm or dissection. 2: There is mild atelectasis involving both lung bases. 3: Again seen splenomegaly and liver findings which may represent cirrhosis. Dictated by: Dictated on workstation # [id number]
[2021-05-21] MEDS ORDERED: ACHD5005 PO (15:29)
[2021-05-21 15:41] VITALS: BP 125/79
== END 2021-05-21 15:41 | disposition home or self-care (01) ==
LOC: EDUNIT# 09:28 → ER 09:29
DX: R07.81 Pleurodynia (principal); E66.9 Obesity, unspecified; Z68.33 Body mass index [BMI] 33.0-33.9, adult; K21.9 Gastro-esophageal reflux disease without esophagitis; E11.9 Type 2 diabetes mellitus without complications; F41.9 Anxiety disorder, unspecified; F17.210 Nicotine dependence, cigarettes, uncomplicated; Z79.899 Other long term (current) drug therapy; Z79.84 Long term (current) use of oral hypoglycemic drugs
CPT/HCPCS: 71045; 71275; 80053; 80306; 81000; 83690; 83735; 83874; 83880; 84484; 85025; 85379; 85610; 85730; 99284; G0480; 36415; 80320

== ENCOUNTER 2022-02-15 19:11 | Emergency (ER) | payer OTHER ==
[~2022-02-15] VITALS: Ht 168 cm; Wt 118.0 kg
[2022-02-15 19:39] VITALS: BP 140/85
[2022-02-15] MEDS ORDERED: inSUlin (REGULAR) HUMAN 1 UNIT/0.01 ML (CHARGE PER UNIT) SC STA ×2 (20:01→22:03)
[2022-02-15] MEDS ORDERED: NS IV 1000 ML 1,000 ML IV STA (20:03)
[2022-02-15 20:12] LABS: BASOPHILS % (AUTO) 1 % (0-10); EOSINOPHILS % (AUTO) 1 % (0-10); HEMATOCRIT 40 % (40-54); MEAN CORPUSCULAR HEMOGLOBIN 33 pg (25-34); MEAN CORPUSCULAR VOLUME 90 fL (80-99); MONOCYTES % (AUTO) 14 % (0-12)
[2022-02-15 20:22] LABS: ALANINE AMINOTRANSFERASE 44 U/L (0-55); ALBUMIN 3.4 GM/DL (3.2-4.5); ALKALINE PHOSPHATASE 140 U/L (40-136); BILIRUBIN,TOTAL 3.3 MG/DL (0.1-1.0); BUN/CREATININE RATIO 10; CALCIUM 9.1 MG/DL (8.5-10.1); CARBON DIOXIDE 19 MMOL/L (21-32); CHLORIDE 100 MMOL/L (98-107); CREATININE SERUM 1.15 MG/DL (0.60-1.30); GFR ESTIMATED 78; MAGNESIUM 1.8 MG/DL (1.6-2.4); POTASSIUM 3.9 MMOL/L (3.6-5.0); SODIUM 132 MMOL/L (135-145); TOTAL PROTEIN 7.7 GM/DL (6.4-8.2)
--- NOTE | 2022-02-15 20:26 | Diagnostic Imaging Report ---
INDICATION: Hyperglycemia. Comparison is made with prior exam of 05/21/2021. FINDINGS: There is cardiomegaly. The mediastinum is unremarkable. There is no pleural effusion, pneumothorax or pneumonia. IMPRESSION: Cardiomegaly. No acute cardiopulmonary abnormality.. Dictated by: Dictated on workstation # [id number]
[2022-02-15 20:36] LABS: HEMOGLOBIN 14.6 g/dL (13.3-17.7); LYMPHOCYTES % (AUTO) 18 % (12-44); MEAN CORPUSCULAR HGB CONC 36 g/dL (32-36); MEAN PLATELET VOLUME 11.2 fL (9.0-12.2); NEUTROPHILS % (AUTO) 66 % (42-75); PLATELET COUNT 52 10^3/uL (130-400); WHITE BLOOD COUNT 4.6 10^3/uL (4.3-11.0)
[2022-02-15 20:37] LABS: LYMPHOCYTES # (AUTO) 0.8 10^3/uL (1.0-4.0); MONOCYTES # (AUTO) 0.7 10^3/uL (0.0-1.0)
[2022-02-15 20:46] LABS: GLUCOSE 493 MG/DL (70-105)
[2022-02-15 20:51] LABS: AMPHETAMINE SCREEN, URINE NEGATIVE (NEGATIVE); BARBITURATE SCREEN URINE NEGATIVE (NEGATIVE); BENZODIAZEPINES SCREEN URINE NEGATIVE (NEGATIVE); CANNABINOID SCREEN, URINE NEGATIVE (NEGATIVE); COCAINE SCREEN URINE NEGATIVE (NEGATIVE); METHADONE STAT NEGATIVE (NEGATIVE); METHAMPHETAMINE SCREEN URINE S NEGATIVE (NEGATIVE); OPIATE SCREEN URINE NEGATIVE (NEGATIVE); OXYCODONE STAT NEGATIVE (NEGATIVE); PROPOXYPHENE STAT NEGATIVE (NEGATIVE); TRICYCLIC ANTIDEPRESSANTS SCRE NEGATIVE (NEGATIVE)
[2022-02-15 20:56] LABS: AMMONIA 86 UMOL/L (11-32)
--- NOTE | 2022-02-15 22:03 | ED General ---
General Chief Complaint: Glucose Problems Stated Complaint: HIGH BLOOD SUGAR Nursing Triage Note: PT ARRIVES PER POV W/ C/O ELEVATED BLOOD SUGAR. TO ROOM, ATTACHED TO NIBP AND SPO2 MONITORS. History of Present Illness Date Seen by Provider: Feb 15, 2022 Time Seen by Provider: 19:58 Initial Comments 47-year-old male with past PMH of diabetes mellitus on metformin and glipizide is here with complaints of elevated blood sugar at home in the 500s. Patient has not been taking his diabetic medication for the past few days because he felt lazy to take it. He started feeling shaky and tired for the past day or so, and checked his fingerstick today at home and came to the ER for elevated blood sugars. Denies chest pain, dysuria, palpitations, shortness of breath, headache, blurry vision, fever. No recent illnesses. Allergies and Home Medications Allergies Coded Allergies: No Known Drug Allergies (Unverified , 09/25/19) Patient Home Medication List Home Medication List Reviewed: Yes Cholecalciferol (Vitamin D3) (Vitamin D) 50,000 Unit Capsule, 50,000 UNIT PO WEEK, (Reported) Entered as Reported by: GABRIELLA ROSALES on 09/25/19 1027 Furosemide (Furosemide) 20 Mg Tablet, 20 MG PO DAILY, (Reported) Entered as Reported by: GABRIELLA ROSALES on 09/25/19 1027 Hydrocodone Bit/Acetaminophen (Lortab 5 Mg Tablet) 1 Each Tablet, 1 TAB PO Q4H Prescribed by: BEN VERONICA on 10/10/19 1141 Hydrocodone/Acetaminophen (Hydrocodone-Acetamin 5-325 mg) 1 Each Tablet, 1 TAB PO Q6H PRN for PAIN-MODERATE (5-7) Prescribed by: SARAHY COLES on 05/21/21 1529 Hydroxyzine HCl (Hydroxyzine HCl) 50 Mg Tablet, 50 MG PO HS, (Reported) Entered as Reported by: GABRIELLA ROSALES on 09/25/19 1027 Lactulose (Lactulose) 10 Gm/15 Ml Solution, 30 ML PO HS, (Reported) Entered as Reported by: GABRIELLA ROSALES on 09/25/19 1112 Metformin HCl (Metformin HCl) 1,000 Mg Tablet, 1,000 MG PO BID, (Reported) Entered as Reported by: GABRIELLA ROSALES on 09/25/19 1027 Omeprazole (Omeprazole) 20 Mg Tablet.dr, 20 MG PO DAILY, (Reported) Entered as Reported by: GABRIELLA ROSALES on 09/25/19 1027 Rifaximin (Xifaxan) 200 Mg Tablet, 600 MG PO BID, (Reported) Entered as Reported by: GABRIELLA ROSALES on 09/25/19 1027 Risperidone (Risperdal) 2 Mg Tablet, 2 MG PO HS, (Reported) Entered as Reported by: GABRIELLA ROSALES on 09/25/19 1027 Spironolactone (Spironolactone) 50 Mg Tablet, 50 MG PO DAILY, (Reported) Entered as Reported by: GABRIELLA ROSALES on 09/25/19 1027 Review of Systems Review of Systems Constitutional: malaise, other (shakiness) EENTM: no symptoms reported Respiratory: no symptoms reported Cardiovascular: no symptoms reported Gastrointestinal: no symptoms reported Genitourinary: no symptoms reported Musculoskeletal: no symptoms reported Skin: no symptoms reported Psychiatric/Neurological: Tremors Hematologic/Lymphatic: No Symptoms Reported Immunological/Allergic: no symptoms reported Past Vmlotus-Wcaemy-Elodeo Hx Patient Social History Tobacco Use?: Yes Tobacco type used: Cigarettes Smoking Status: Current Everyday Smoker Use of E-Cig and/or Vaping dev: No Substance use?: No Alcohol Use?: No Immunizations Up To Date First/Initial COVID19 Vaccinat: 2020 Second COVID19 Vaccination Jeremy: 2020 COVID19 Vaccine Netting Weaver: LUKAS Seasonal Allergies Seasonal Allergies: No Past Medical History Surgeries: Yes (EGD, colonoscopy) Respiratory: No Cardiac: No Neurological: No Sexually Transmitted Disease: No HIV/AIDS: No Genitourinary: No Gastrointestinal: Yes Gastroesophageal Reflux, Liver Disease/Jaundice, Cirrhosis Musculoskeletal: No Endocrine: Yes Diabetes, Non-Insulin dep HEENT: No (CONTACTS) Cancer: No Psychosocial: Yes Anxiety, Depression Integumentary: No Blood Disorders: No Adverse Reaction/Blood Tranf: No (N/A) Family Medical History No Pertinent Family Hx Physical Exam Vital Signs Vital Signs - First Documented 02/15/22 19:39 Temp 36.3 Pulse 88 Resp 20 B/P (MAP) 140/85 (103) Pulse Ox 95 Capillary Refill : Less Than 3 Seconds Height, Weight, BMI Height: 6'" Weight: 240lbs. oz. [id number]; 41.00 BMI Method:Stated General Appearance: No Apparent Distress HEENT: PERRL/EOMI, Pharynx Normal Neck: Full Range of Motion, Normal Inspection, Supple Respiratory: Chest Non Tender, Lungs Clear, Normal Breath Sounds Cardiovascular: Regular Rate, Rhythm Gastrointestinal: Normal Bowel Sounds, Non Tender, Soft Extremity: Normal Range of Motion Neurologic/Psychiatric: Alert, Oriented x3, No Motor/Sensory Deficits, Normal Mood/Affect Skin: Normal Color Progress/Results/Core Measures Suspected Sepsis SIRS Temperature: Pulse: 88 Respiratory Rate: 20 Laboratory Tests 02/15/22 19:55: White Blood Count 4.6 Blood Pressure 140 /85 Mean: 103 Laboratory Tests 02/15/22 19:55: Creatinine 1.15, Platelet Count 52L, Total Bilirubin 3.3H Results/Orders Lab Results Laboratory Tests Test 02/15/22 19:42 02/15/22 19:55 02/15/22 20:15 02/15/22 21:43 Range/Units Glucometer 452 *H 353 H 70-110 MG/DL White Blood Count 4.6 4.3-11.0 10^3/uL Red Blood Count 4.49 4.30-5.52 10^6/uL Hemoglobin 14.6 13.3-17.7 g/dL Hematocrit 40 40-54 % Mean Corpuscular Volume 90 80-99 fL Mean Corpuscular Hemoglobin 33 25-34 pg Mean Corpuscular Hemoglobin Concent 36 32-36 g/dL Red Cell Distribution Width 14.0 10.0-14.5 % Platelet Count 52 L 130-400 10^3/uL Mean Platelet Volume 11.2 9.0-12.2 fL Immature Granulocyte % (Auto) 0 % Neutrophils (%) (Auto) 66 42-75 % Lymphocytes (%) (Auto) 18 12-44 % Monocytes (%) (Auto) 14 H 0-12 % Eosinophils (%) (Auto) 1 0-10 % Basophils (%) (Auto) 1 0-10 % Neutrophils # (Auto) 3.0 1.8-7.8 10^3/uL Lymphocytes # (Auto) 0.8 L 1.0-4.0 10^3/uL Monocytes # (Auto) 0.7 0.0-1.0 10^3/uL Eosinophils # (Auto) 0.0 0.0-0.3 10^3/uL Basophils # (Auto) 0.0 0.0-0.1 10^3/uL Immature Granulocyte # (Auto) 0.0 0.0-0.1 10^3/uL Percent Immature Platelet Fraction 3.6 0.0-7.6 % Sodium Level 132 L 135-145 MMOL/L Potassium Level 3.9 3.6-5.0 MMOL/L Chloride Level 100 98-107 MMOL/L Carbon Dioxide Level 19 L 21-32 MMOL/L Anion Gap 13 5-14 MMOL/L Blood Urea Nitrogen 11 7-18 MG/DL Creatinine 1.15 0.60-1.30 MG/DL Estimat Glomerular Filtration Rate 78 BUN/Creatinine Ratio 10 Glucose Level 493 *H 70-105 MG/DL Calcium Level 9.1 8.5-10.1 MG/DL Corrected Calcium 9.6 8.5-10.1 MG/DL Phosphorus Level 2.0 L 2.3-4.7 MG/DL Magnesium Level 1.8 1.6-2.4 MG/DL Total Bilirubin 3.3 H 0.1-1.0 MG/DL Aspartate Amino Transf (AST/SGOT) 53 H 5-34 U/L Alanine Aminotransferase (ALT/SGPT) 44 0-55 U/L Alkaline Phosphatase 140 H 40-136 U/L Ammonia 86 H 11-32 UMOL/L Troponin I < 0.028 <0.028 NG/ML Total Protein 7.7 6.4-8.2 GM/DL Albumin 3.4 3.2-4.5 GM/DL Serum Alcohol < 10 <10 MG/DL Urine Ketones NEGATIVE Urine Opiates Screen NEGATIVE NEGATIVE Urine Oxycodone Screen NEGATIVE NEGATIVE Urine Methadone Screen NEGATIVE NEGATIVE Urine Propoxyphene Screen NEGATIVE NEGATIVE Urine Barbiturates Screen NEGATIVE NEGATIVE Ur Tricyclic Antidepressants Screen NEGATIVE NEGATIVE Urine Phencyclidine Screen NEGATIVE NEGATIVE Urine Amphetamines Screen NEGATIVE NEGATIVE Urine Methamphetamines Screen NEGATIVE NEGATIVE Urine Benzodiazepines Screen NEGATIVE NEGATIVE Urine Cocaine Screen NEGATIVE NEGATIVE Urine Cannabinoids Screen NEGATIVE NEGATIVE Test 02/15/22 22:46 02/15/22 23:17 Range/Units Glucometer 305 H 320 H 70-110 MG/DL My Orders Orders - RAHUL GARCIA MD Alcohol (02/15/22 19:59) Ammonia (02/15/22 19:59) Cbc With Automated Diff (02/15/22:59) Comprehensive Metabolic Panel (02/15/22:59) Drug Screen Stat (Urine) (02/15/22:59) Magnesium (02/15/22:59) Phosphorus (02/15/22:59) Troponin I Anne (02/15/22:59) Chest 1 View, Ap/Pa Only (02/15/22:59) Acetone,Urine (02/15/22 20:01) Insulin (Regular) Human (Novolin R (Per (02/15/22 20:01) Ed Iv/Invasive Line Start (02/15/22 20:03) Ns Iv 1000 Ml (Sodium Chloride 0.9%) (02/15/22 20:03) Insulin (Regular) Human (Novolin R (Per (02/15/22 22:03) Accucheck Stat ONCE (02/15/22 22:58) Vital Signs/I&O 02/15/22 19:39 Temp 36.3 Pulse 88 Resp 20 B/P (MAP) 140/85 (103) Pulse Ox 95 Capillary Refill : Less Than 3 Seconds Blood Pressure Mean: 103 Point of Care Testing Finger Stick Blood Glucose: 353 Progress Note : Progress Note 1. HYPERGLYCEMIA DUE TO NONCOMPLIANCE OF MEDICATION: - CXR: normal - Labs unremarkable. Minimal decrease in Na and phosphorus. NS IVF started. Negative ketones. - Blood sugar 495, then 350 after 5 units of insulin. 2 more units given after 2 hours, which brought it down to 305. - Pt wants to go home - Advised pt to take home medications regularly as prescribed by PCP - F/u with PCP within 2 days -The patient was seen in the ED, and treated appropriately to presentation at a specific point in time. Patient is informed that there is a possibility that disease and illness can evolve and change in acuity rapidly or slowly after patient is discharged from the ER. Precautionary advice given to the patient for immediate return to ER if symptoms worsen or do not resolve, and to seek emergency care sooner rather than later. Pt also advised on the importance of PCP follow up and compliance with management and follow up plan. Pt verbally expressed understanding. Departure Impression Primary Impression: Acute hyperglycemia Additional Impression: Noncompliance with medication regimen Disposition: HOME, SELF-CARE Condition: Improved Departure-Patient Inst. Referrals: ELIZABETH CEVALLOS MD (PCP/Family) Primary Care Physician Patient Instructions: High Blood Sugar, Adult ED, Why Taking Your Medicine or Drug as Ordered Is Important, How to Prevent High Blood Sugar Emergencies in Diabetes Add. Discharge Instructions: F/u with PCP within 2 days - Advised strongly to take all home meds as prescribed by PCP -The patient was seen in the ED, and treated appropriately to presentation at a specific point in time. Patient is informed that there is a possibility that disease and illness can evolve and change in acuity rapidly or slowly after patient is discharged from the ER. Precautionary advice given to the patient for immediate return to ER if symptoms worsen or do not resolve, and to seek emergency care sooner rather than later. Pt also advised on the importance of PCP follow up and compliance with management and follow up plan. Pt verbally expressed understanding. All discharge instructions reviewed with patient and/or family. Voiced understanding. RAHUL GARCIA MD Feb 15, 2022 22:03
== END 2022-02-15 23:26 | disposition home or self-care (01) ==
LOC: EDUNIT# 19:11 → ER 19:15
DX: E11.65 Type 2 diabetes mellitus with hyperglycemia (principal); F17.210 Nicotine dependence, cigarettes, uncomplicated; Z91.14 Patient's other noncompliance with medication regimen; Z79.84 Long term (current) use of oral hypoglycemic drugs
CPT/HCPCS: 71045; 80053; 80306; 81002; 82140; 82947; 83735; 84100; 84484; 85025; G0480; 36415; 80320

== ENCOUNTER 2022-11-10 22:42 | Inpatient (IN) | payer OTHER ==
[~2022-11-10] VITALS: Ht 182.8 cm; Wt 125.1 kg
[~2022-11-10 22:42] MED LIST changes: +OMEP20TA56 PO; -OMEP20TA7 PO
[2022-11-10] MEDS ORDERED: NS IV 1000 ML 1,000 ML IV SCH (23:00)
[2022-11-10 23:24] LABS: BASOPHILS % (AUTO) 1 % (0-10); HEMATOCRIT 42 % (40-54); HEMOGLOBIN 15.2 g/dL (13.3-17.7); MEAN CORPUSCULAR HGB CONC 37 g/dL (32-36); MONOCYTES # (AUTO) 0.3 10^3/uL (0.0-1.0); MONOCYTES % (AUTO) 9 % (0-12); WHITE BLOOD COUNT 3.4 10^3/uL (4.3-11.0)
[2022-11-10 23:26] LABS: EOSINOPHILS % (AUTO) 1 % (0-10); LYMPHOCYTES # (AUTO) 0.8 10^3/uL (1.0-4.0); LYMPHOCYTES % (AUTO) 23 % (12-44); MEAN CORPUSCULAR HEMOGLOBIN 34 pg (25-34); MEAN CORPUSCULAR VOLUME 91 fL (80-99); MEAN PLATELET VOLUME 11.8 fL (9.0-12.2); NEUTROPHILS # (AUTO) 2.2 10^3/uL (1.8-7.8); NEUTROPHILS % (AUTO) 66 % (42-75); PLATELET COUNT 45 10^3/uL (130-400)
[2022-11-10 23:35] LABS: ALBUMIN 3.4 GM/DL (3.2-4.5); POTASSIUM 3.8 MMOL/L (3.6-5.0)
[2022-11-10 23:36] LABS: CALCIUM 8.6 MG/DL (8.5-10.1)
[2022-11-10 23:38] LABS: PROTHROMBIN TIME PATIENT 13.9 SEC (12.2-14.7)
[2022-11-10 23:41] LABS: CREATININE SERUM 0.95 MG/DL (0.60-1.30)
--- NOTE | 2022-11-10 23:42 | ED General ---
General Chief Complaint: Glucose Problems Stated Complaint: BLOOD SUGAR HIGH Nursing Triage Note: PT TO RM 6 WITH CC OF HIGH BLOOD SUGAR. PT STATES BS PRIOR TO ARRIVAL WAS 487. PT REPROTS HAS BEEN TIRED AND VERY THIRSTY FOR DAYS. PT A&OX4. Source of Information: Patient (PT IS A LIMITED/ POOR HISTORIAN) History of Present Illness Date Seen by Provider: Nov 10, 2022 Time Seen by Provider: 22:58 Initial Comments PT ARRIVES VIA POV FROM HOME STATES HE HAS BEEN EXHAUSTED AND ALL HE WANTS TO DO IS SLEEP, AND HAS BEEN VERY THIRSTY FOR THE LAST WEEK HE IS DIABETIC, AND IS PRESCRIBED GLIPIZIDE AND METFORMIN (DOES NOT KNOW DOSES) STATES HE HAS NOT TAKEN THEM FOR SEVERAL DAYS--DOES NOT KNOW WHEN HE LAST TOOK THEM. HE DOES NOT USUALLY CHECK HIS BLOOD SUGAR, BUT BRET DECIDED TO CHECK IT AND IT WAS 487, SO HE CAME HERE. HE DOES NOT FOLLOW ANY DIET. HE HAS NOT SEEN AN FIELD HEALTH OFFICER HE HAS NO IDEA HOW LONG HE HAS BEEN DIABETIC. HE STATES HE ALSO HAS CIRRHOSIS, AND "TAKES 20 DIFFERENT MEDICATIONS" BUT DOES NOT KNOW ANY OTHER MEDICATIONS OR EXACTLY WHAT HE TAKES THEM FOR, OR WHEN HE LAST TOOK ANY OF THEM. HE STATES HE HAS NOT TAKEN LACTULOSE "FOR A LONG TIME" HE CLAIMS NO RECENT ALCOHOL USE, BUT HAS A HISTORY OF HEAVY USE/ABUSE HE DENIES ANY OTHER SYMPTOMS. HE DENIES FEVER OR RECENT ILLNESS NO GI SYMPTOMS NO SYMPTOMS NO HEADACHE NO VISION CHANGES NO PAIN ANYWHERE PCP: [facility]. DR. CEVALLOS. HAS AN APPOINTMENT TO SEE DR. CED ROBERTSON AT [facility] ON 11/16/22 GI: DR. CALZADA--SEES HIM AT [place]. Allergies and Home Medications Allergies Coded Allergies: No Known Drug Allergies (Unverified , 09/25/19) Patient Home Medication List Home Medication List Reviewed: Yes Cholecalciferol (Vitamin D3) (Vitamin D) 50,000 Unit Capsule, 50,000 UNIT PO WEEK, (Reported) Entered as Reported by: GABRIELLA ROSALES on 09/25/19 1027 Furosemide (Furosemide) 20 Mg Tablet, 20 MG PO DAILY, (Reported) Entered as Reported by: GABRIELLA ROSALES on 09/25/19 1027 Hydrocodone Bit/Acetaminophen (Lortab 5 Mg Tablet) 1 Each Tablet, 1 TAB PO Q4H Prescribed by: BEN VERONICA on 10/10/19 1141 Hydrocodone/Acetaminophen (Hydrocodone-Acetamin 5-325 mg) 1 Each Tablet, 1 TAB PO Q6H PRN for PAIN-MODERATE (5-7) Prescribed by: SARAHY COLES on 05/21/21 1529 Hydroxyzine HCl (Hydroxyzine HCl) 50 Mg Tablet, 50 MG PO HS, (Reported) Entered as Reported by: GABRIELLA ROSALES on 09/25/19 1027 Lactulose (Lactulose) 10 Gm/15 Ml Solution, 30 ML PO HS, (Reported) Entered as Reported by: GABRIELLA ROSALES on 09/25/19 1112 Metformin HCl (Metformin HCl) 1,000 Mg Tablet, 1,000 MG PO BID, (Reported) Entered as Reported by: GABRIELLA ROSALES on 09/25/19 1027 Omeprazole (Omeprazole) 20 Mg Tablet.dr, 20 MG PO DAILY, (Reported) Entered as Reported by: GABRIELLA ROSALES on 09/25/19 1027 Rifaximin (Xifaxan) 200 Mg Tablet, 600 MG PO BID, (Reported) Entered as Reported by: GABRIELLA ROSALES on 09/25/19 1027 Risperidone (Risperdal) 2 Mg Tablet, 2 MG PO HS, (Reported) Entered as Reported by: GABRIELLA ROSALES on 09/25/19 1027 Spironolactone (Spironolactone) 50 Mg Tablet, 50 MG PO DAILY, (Reported) Entered as Reported by: GABRIELLA ROSALES on 09/25/19 1027 Review of Systems Review of Systems Constitutional: see HPI, malaise EENTM: no symptoms reported Respiratory: no symptoms reported Cardiovascular: no symptoms reported Gastrointestinal: no symptoms reported Genitourinary: frequency Musculoskeletal: no symptoms reported Skin: no symptoms reported Psychiatric/Neurological: No Symptoms Reported Hematologic/Lymphatic: No Symptoms Reported Immunological/Allergic: no symptoms reported Past Wddypui-Sbgrfa-Qrpuxp Hx Patient Social History Tobacco Use?: Yes Tobacco type used: Cigarettes Smoking Status: Current Everyday Smoker Substance use?: No Alcohol Use?: Yes Pt feels they are or have been: No Immunizations Up To Date First/Initial COVID19 Vaccinat: 2020 Second COVID19 Vaccination Jeremy: 2020 Third COVID19 Vaccination Date: 2020 Seasonal Allergies Seasonal Allergies: No Past Medical History Surgery/Hospitalization HX: DM Surgeries: Yes (EGD,COLONOSCOPY) Tonsillectomy Respiratory: No Cardiac: No Neurological: No Sexually Transmitted Disease: No HIV/AIDS: No Genitourinary: No Gastrointestinal: Yes Gastroesophageal Reflux, Liver Disease/Jaundice, Cirrhosis Musculoskeletal: No Endocrine: Yes Diabetes, Non-Insulin dep HEENT: No (CONTACTS) Cancer: No Psychosocial: Yes Anxiety, Depression Integumentary: No Blood Disorders: No Adverse Reaction/Blood Tranf: No (N/A) Family Medical History No Pertinent Family Hx SOCIAL HISTORY: -SMOKES 1 PPD -ETOH--HISTORY OF ABUSE -DRUGS --DENIES USE Physical Exam Vital Signs Vital Signs - First Documented 11/10/22 22:50 Temp 36.5 Pulse 71 Resp 18 B/P (MAP) 137/79 (98) Pulse Ox 96 O2 Delivery Room Air Capillary Refill : Less Than 3 Seconds Height, Weight, BMI Height: 6'" Weight: 240lbs. oz. 108.000568wn; 35.00 BMI Method:Stated General Appearance: No Apparent Distress, WD/WN, Obese, Other (VERY FLAT AFFECT AND SOMEWHAT SLOW MENTATION; REEKS OF CIGARETTES AND ALCOHOL) HEENT: PERRL/EOMI, Other (ORAL MUCOSA DRY) Neck: Normal Inspection Respiratory: Normal Breath Sounds, No Accessory Muscle Use, No Respiratory Distress Cardiovascular: Regular Rate, Rhythm, No Edema, No JVD, No Murmur, Normal Peripheral Pulses Gastrointestinal: Normal Bowel Sounds, Non Tender, Soft Back: No CVA Tenderness Extremity: Normal Capillary Refill, Normal Inspection, No Pedal Edema Neurologic/Psychiatric: Alert, Oriented x3 (BUT POOR MEMORY), No Motor/Sensory Deficits, battery loader II-XII Norm as Tested Skin: Normal Color, Warm/Dry; No Ecchymosis, No Jaundice, No Petechia Focused Exam Lactate Level 11/10/22 23:15: Lactic Acid Level 2.10*H Lactic Acid Level Laboratory Tests Test 11/10/22 23:15 Lactic Acid Level 2.10 MMOL/L (0.50-2.00) *H Progress/Results/Core Measures Suspected Sepsis SIRS Temperature: Pulse: 71 Respiratory Rate: 18 Laboratory Tests 11/10/22 23:15: White Blood Count 3.4L Blood Pressure 137 /79 Mean: 98 11/10/22 23:15: Lactic Acid Level 2.10*H Laboratory Tests 11/10/22 23:15: Creatinine 0.95, INR Comment 1.0, Platelet Count 45L, Total Bilirubin 2.0H Results/Orders Lab Results Laboratory Tests Test 11/10/22 22:52 11/10/22 23:15 11/10/22 23:53 11/11/22 00:01 Range/Units Glucometer 412 *H 70-110 MG/DL White Blood Count 3.4 L 4.3-11.0 10^3/uL Red Blood Count 4.54 4.30-5.52 10^6/uL Hemoglobin 15.2 13.3-17.7 g/dL Hematocrit 42 40-54 % Mean Corpuscular Volume 91 80-99 fL Mean Corpuscular Hemoglobin 34 25-34 pg Mean Corpuscular Hemoglobin Concent 37 H 32-36 g/dL Red Cell Distribution Width 13.4 10.0-14.5 % Platelet Count 45 L 130-400 10^3/uL Mean Platelet Volume 11.8 9.0-12.2 fL Immature Granulocyte % (Auto) 1 % Neutrophils (%) (Auto) 66 42-75 % Lymphocytes (%) (Auto) 23 12-44 % Monocytes (%) (Auto) 9 0-12 % Eosinophils (%) (Auto) 1 0-10 % Basophils (%) (Auto) 1 0-10 % Neutrophils # (Auto) 2.2 1.8-7.8 10^3/uL Lymphocytes # (Auto) 0.8 L 1.0-4.0 10^3/uL Monocytes # (Auto) 0.3 0.0-1.0 10^3/uL Eosinophils # (Auto) 0.0 0.0-0.3 10^3/uL Basophils # (Auto) 0.0 0.0-0.1 10^3/uL Immature Granulocyte # (Auto) 0.0 0.0-0.1 10^3/uL Percent Immature Platelet Fraction 4.3 0.0-7.6 % Prothrombin Time 13.9 12.2-14.7 SEC INR Comment 1.0 0.8-1.4 Activated Partial Thromboplast Time 33 24-35 SEC Sodium Level 133 L 135-145 MMOL/L Potassium Level 3.8 3.6-5.0 MMOL/L Chloride Level 103 98-107 MMOL/L Carbon Dioxide Level 14 L 21-32 MMOL/L Anion Gap 16 H 5-14 MMOL/L Blood Urea Nitrogen 8 7-18 MG/DL Creatinine 0.95 0.60-1.30 MG/DL Estimat Glomerular Filtration Rate 98 BUN/Creatinine Ratio 8 Glucose Level 453 *H 70-105 MG/DL Lactic Acid Level 2.10 *H 0.50-2.00 MMOL/L Calcium Level 8.6 8.5-10.1 MG/DL Corrected Calcium 9.1 8.5-10.1 MG/DL Magnesium Level 1.8 1.6-2.4 MG/DL Total Bilirubin 2.0 H 0.1-1.0 MG/DL Aspartate Amino Transf (AST/SGOT) 64 H 5-34 U/L Alanine Aminotransferase (ALT/SGPT) 49 0-55 U/L Alkaline Phosphatase 173 H 40-136 U/L Ammonia 102 H 11-32 UMOL/L Total Protein 8.0 6.4-8.2 GM/DL Albumin 3.4 3.2-4.5 GM/DL Amylase Level 102 25-125 U/L Lipase 102 H 8-78 U/L Beta-Hydroxybutyrate (Chem panel) 0.36 H 0.00-0.27 MMOL/L Serum Alcohol 113 H <10 MG/DL Urine Color YELLOW Urine Clarity CLEAR Urine pH 5.5 5-9 Urine Specific [place] 1.010 L 1.016-1.022 Urine Protein NEGATIVE NEGATIVE Urine Glucose (UA) 3+ H NEGATIVE Urine Ketones NEGATIVE NEGATIVE Urine Nitrite NEGATIVE NEGATIVE Urine Bilirubin NEGATIVE NEGATIVE Urine Urobilinogen 0.2 < = 1.0 MG/DL Urine Leukocyte Esterase NEGATIVE NEGATIVE Urine RBC (Auto) TRACE-I H NEGATIVE Urine RBC 0-2 /HPF Urine WBC NONE /HPF Urine Crystals NONE /LPF Urine Bacteria NEGATIVE /HPF Urine Casts NONE /LPF Urine Mucus NEGATIVE /LPF Urine Culture Indicated NO Urine Opiates Screen NEGATIVE NEGATIVE Urine Oxycodone Screen NEGATIVE NEGATIVE Urine Methadone Screen NEGATIVE NEGATIVE Urine Propoxyphene Screen NEGATIVE NEGATIVE Urine Barbiturates Screen NEGATIVE NEGATIVE Ur Tricyclic Antidepressants Screen NEGATIVE NEGATIVE Urine Phencyclidine Screen NEGATIVE NEGATIVE Urine Amphetamines Screen NEGATIVE NEGATIVE Urine Methamphetamines Screen NEGATIVE NEGATIVE Urine Benzodiazepines Screen NEGATIVE NEGATIVE Urine Cocaine Screen NEGATIVE NEGATIVE Urine Cannabinoids Screen NEGATIVE NEGATIVE Blood Gas Puncture Site R RAD Blood Gas Patient Temperature 36.5 Arterial Blood pH 7.38 7.37-7.43 Arterial Blood Partial Pressure CO2 33 L 35-45 MMHG Arterial Blood Partial Pressure O2 78 L 79-93 MMHG Arterial Blood HCO3 20 L 23-27 MMOL/L Arterial Blood Total CO2 20.5 L 21.0-31.0 MMOL/L Arterial Blood Oxygen Saturation 97 94-100 % Arterial Blood Base Excess -4.7 L -2.5-2.5 MMOL/L Silvino Test YES-POS Blood Gas Ventilator Setting NO Blood Gas Inspired Oxygen ROOM AIR My Orders Orders - PELON REECE DO Accucheck Stat ONCE (11/10/22 22:57) Ed Iv/Invasive Line Start (11/10/22 22:57) Monitor-Rhythm Ecg Trace Only (11/10/22 22:57) Amylase (11/10/22 22:57) Cbc With Automated Diff (11/10/22 22:57) Comprehensive Metabolic Panel (11/10/22 22:57) Lactic Acid Analyzer (11/10/22 22:57) Lipase (11/10/22 22:57) Magnesium (11/10/22 22:57) Ua Culture If Indicated (11/10/22 22:57) Ed Iv/Invasive Line Start (11/10/22 22:57) Ns Iv 1000 Ml (Sodium Chloride 0.9%) (11/10/22 23:00) Beta Hydroxybutyrate (11/10/22 22:57) Hemoglobin A1c (11/10/22 22:57) Alcohol (11/10/22 23:06) Ammonia (11/10/22 23:06) Drug Screen Stat (Urine) (11/10/22 23:06) Protime With Inr (11/10/22 23:06) Partial Thromboplastin Time (11/10/22 23:06) Arterial Blood Gas (11/11/22 00:04) Ed Iv/Invasive Line Start (11/11/22 00:04) Ns Iv 1000 Ml (Sodium Chloride 0.9%) (11/11/22 00:15) Insulin (Regular) Human (Novolin R (Per (11/11/22 00:15) Medications Given in ED Vital Signs/I&O 11/10/22 22:50 Temp 36.5 Pulse 71 Resp 18 B/P (MAP) 137/79 (98) Pulse Ox 96 O2 Delivery Room Air Capillary Refill : Less Than 3 Seconds Blood Pressure Mean: 98 Point of Care Testing Finger Stick Blood Glucose: 412 Blood Glucose Action Taken: DR. REECE INFORMED Progress Note : Progress Note GIVEN: -IV FLUIDS -INSULIN REVIEWED PRIOR RECORDS--ALL ER VISITS. VITALS ARE STABLE PT VOICED NO COMPLAINTS FOR ENTIRE ER STAY NO DETERIORATION IN PT'S CONDITION DURING ER STAY Departure Communication (Admissions) 6--SPOKE WITH DR. PENA, HOSPITALIST FOR [facility]. ACCEPTS PT FOR ADMIT 7--CALLED E-ICU. PHYSICIAN WILL CALL ME BACK 37--REPORT TO DR. DEY, E-ICU PHYSICIAN. 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 Referrals: ELIZABETH CEVALLOS MD (PCP/Family) Primary Care Physician PELON REECE DO Nov 10, 2022 23:42
[2022-11-10 23:44] LABS: MAGNESIUM 1.8 MG/DL (1.6-2.4)
[2022-11-10 23:59] LABS: BILIRUBIN,URINE NEGATIVE (NEGATIVE); CLARITY,URINE CLEAR; COLOR,URINE YELLOW; GLUCOSE, URINE (UA) 3+ (NEGATIVE); KETONES,URINE NEGATIVE (NEGATIVE); LEUKOCYTE ESTERASE ,URINE NEGATIVE (NEGATIVE); NITRITE,URINE NEGATIVE (NEGATIVE); PH,URINE 5.5 (5-9); PROTEIN,URINE NEGATIVE (NEGATIVE)
[2022-11-11 00:09] LABS: ABG BASE EXCESS -4.7 MMOL/L (-2.5-2.5); ABG OXYGEN SATURATION 97 % (94-100); ABG PCO2 33 MMHG (35-45); ABG PH 7.38 (7.37-7.43); ABG PO2 78 MMHG (79-93); ABG TCO2 20.5 MMOL/L (21.0-31.0)
[2022-11-11 00:10] LABS: ALLENS TEST YES-POS; INSPIRED O2 ROOM AIR; PATIENT TEMP 36.5; VENTILATOR NO
[2022-11-11 00:11] LABS: BACTERIA,URINE NEGATIVE /HPF; RBC,URINE 0-2 /HPF
[2022-11-11] MEDS ORDERED: inSUlin (REGULAR) HUMAN 1 UNIT/0.01 ML (CHARGE PER UNIT) IV ONE (00:15)
[2022-11-11] MEDS ORDERED: inSUlin (REGULAR) HUMAN 1 UNIT/0.01 ML (CHARGE PER UNIT) ONE (00:15)
[2022-11-11] MEDS ORDERED: NS IV 1000 ML 1,000 ML IV SCH ×2 (00:15→02:15)
[2022-11-11 00:20] LABS: AMPHETAMINE SCREEN, URINE NEGATIVE (NEGATIVE); BARBITURATE SCREEN URINE NEGATIVE (NEGATIVE); BENZODIAZEPINES SCREEN URINE NEGATIVE (NEGATIVE); CANNABINOID SCREEN, URINE NEGATIVE (NEGATIVE); COCAINE SCREEN URINE NEGATIVE (NEGATIVE); METHADONE STAT NEGATIVE (NEGATIVE); OPIATE SCREEN URINE NEGATIVE (NEGATIVE); OXYCODONE STAT NEGATIVE (NEGATIVE); PROPOXYPHENE STAT NEGATIVE (NEGATIVE); TRICYCLIC ANTIDEPRESSANTS SCRE NEGATIVE (NEGATIVE)
[2022-11-11] MEDS ORDERED: 1/2 NS IV SOLUTION 1,000 ML IV ONE (01:52)
[2022-11-11] MEDS ORDERED: POTASSIUM CL 10MEQ/50ML IVPB 50 ML IV ONE (01:53)
[2022-11-11] MEDS ORDERED: 1/2 NS IV SOLUTION 1,000 ML IV PRN (02:15)
[2022-11-11] MEDS ORDERED: ANTACID SUSP 30 ML UDC (MYLANTA) PO PRN (02:15)
[2022-11-11] MEDS ORDERED: ONDANSETRON 4 MG (ZOFRAN) ORAL DISSOLVE TAB SL PRN (02:15)
[2022-11-11] MEDS ORDERED: ONDANSETRON 4 MG/2 ML (SDV) Z0FRAN IV PRN (02:15)
[2022-11-11] MEDS ORDERED: LORazepam INJ 2 MG/ML (ATIVAN) VIAL IV PRN (02:15)
[2022-11-11] MEDS ORDERED: LORazepam 1 MG (ATIVAN) TAB PO PRN (02:15)
[2022-11-11] MEDS ORDERED: D5 1/2 NS 1000 ML IV SOLUTION 1,000 ML IV PRN (02:15)
[2022-11-11] MEDS ORDERED: SENNA W/DOCUSATE (SENOKOT S) TABLET PO PRN (02:15)
[2022-11-11] MEDS ORDERED: LORazepam INJ 2 MG/ML (ATIVAN) VIAL IM/IV PRN (02:15)
[2022-11-11 02:21] LABS: CALCIUM 8.4 MG/DL (8.5-10.1); CREATININE SERUM 0.88 MG/DL (0.60-1.30); POTASSIUM 3.7 MMOL/L (3.6-5.0)
[2022-11-11] MEDS: 1/2 NS IV SOLUTION 1,000 ML IV SCH ×3 (02:24→10:18)
[2022-11-11] MEDS: POTASSIUM CL 10MEQ/50ML IVPB 50 ML IV SCH ×5 (02:24→10:51)
--- NOTE | 2022-11-11 02:43 | Tele-ICU Progress Note ---
Progress Note 47M with DM, cirrhosis, med noncompliance admitted with DKA. Presented due to generalized fatigue, severe exhaustion, excessive thirst x1 week prompting to check glucose, 487. He is prescribed glipizide and metformin, does not know doses or when he last took them. Has been "several days". Does not see endocrine, does not follow any particular diet. Also reports taking 20 different meds for cirrhosis, but does not know when he last took them. Has been a "long time" since he took lactulose. Denies recent etoh x8 years, significant history. After labs came back elevated he states he had Carlos and Coke x2 today. Also states that he has been drinking juice because he is so thirsty. In ED, pH 7.38/33/78/20 on RA. Anion gap 16. Glucose 453. Ammonia 102. Beta- hydroxy 0.36. EtOH 113. Otherwise HD stable. - DKA: Given hyperglycemia and ketone elevation, will treat with DKA protocol. However I believe this is an alcoholic ketosis. He does not have a metabolic acidosis and beta-hydroxy only marginally elevated. Anticipate transition to sliding scale in the AM. Needs extensive education, particularly about the use of soda or juice as a mixer. - EtOH: monitor for withdrawal. Banana bag ordered. CIWA ordered. CCT 21 min Focused Exam Lactate Level 11/10/22 23:15: Lactic Acid Level 2.10*H 11/11/22 01:17: Lactic Acid Level 1.86 Height, Weight, BMI Height: 6'" Weight: 240lbs. oz. 108.090625wx; 35.00 BMI Method:Stated Lactic Acid Level Laboratory Tests Test 11/10/22 23:15 11/11/22 01:17 Lactic Acid Level 2.10 MMOL/L (0.50-2.00) *H 1.86 MMOL/L (0.50-2.00) DAVID DEY MD Nov 11, 2022 02:43
[2022-11-11] MEDS: D5 1/2 NS 1000 ML IV SOLUTION 1,000 ML IV SCH ×2 (03:04→08:04)
[2022-11-11 03:52] LABS: BASOPHILS % (AUTO) 0 % (0-10); EOSINOPHILS # (AUTO) 0.1 10^3/uL (0.0-0.3); HEMATOCRIT 38 % (40-54)
[2022-11-11 03:54] LABS: EOSINOPHILS % (AUTO) 2 % (0-10); HEMOGLOBIN 13.7 g/dL (13.3-17.7); LYMPHOCYTES # (AUTO) 0.6 10^3/uL (1.0-4.0); LYMPHOCYTES % (AUTO) 25 % (12-44); MEAN CORPUSCULAR HEMOGLOBIN 33 pg (25-34); MEAN CORPUSCULAR HGB CONC 37 g/dL (32-36); MEAN CORPUSCULAR VOLUME 91 fL (80-99); MEAN PLATELET VOLUME 11.7 fL (9.0-12.2); MONOCYTES # (AUTO) 0.3 10^3/uL (0.0-1.0); MONOCYTES % (AUTO) 11 % (0-12); NEUTROPHILS # (AUTO) 1.5 10^3/uL (1.8-7.8); NEUTROPHILS % (AUTO) 62 % (42-75); WHITE BLOOD COUNT 2.5 10^3/uL (4.3-11.0)
[2022-11-11 04:01] LABS: PLATELET COUNT 37 10^3/uL (130-400)
[2022-11-11 04:04] LABS: INR 1.1 (0.8-1.4); PROTHROMBIN TIME PATIENT 14.5 SEC (12.2-14.7)
[2022-11-11 04:13] LABS: ALBUMIN 3.1 GM/DL (3.2-4.5); BILIRUBIN,TOTAL 2.1 MG/DL (0.1-1.0); CREATININE SERUM 0.81 MG/DL (0.60-1.30); MAGNESIUM 1.9 MG/DL (1.6-2.4); PHOSPHORUS 2.3 MG/DL (2.3-4.7); POTASSIUM 3.3 MMOL/L (3.6-5.0)
[2022-11-11] MEDS ORDERED: NS IV 500 ML 500 ML IV PRN (05:15)
[2022-11-11] MEDS ORDERED: KCL 20 MEQ TAB (K-DUR) PO ONE ×2 (06:00→08:00)
[2022-11-11] MEDS ORDERED: MAGNESIUM 1 GM/100 ML IVPB 100 ML IV SCH (06:00)
[2022-11-11] MEDS ORDERED: POTASSIUM CL 10MEQ/50ML IVPB 50 ML IV SCH (06:00)
[2022-11-11] MEDS ORDERED: KCL 20 MEQ TAB (K-DUR) PO SCH (06:00)
[2022-11-11 08:28] LABS: CALCIUM 7.8 MG/DL (8.5-10.1); CREATININE SERUM 0.81 MG/DL (0.60-1.30); POTASSIUM 3.4 MMOL/L (3.6-5.0)
[2022-11-11] MEDS ORDERED: THIAMINE INJECTION 100 MG, FOLIC ACID INJECTION 1 MG, MAGNESIUM SULFATE 2 GM, VITAMIN M... IV SCH ×5 (09:00)
[2022-11-11] MEDS ORDERED: INSU100I29 SQ (11:12)
[2022-11-11] MEDS ORDERED: NEED-474 MC (11:12)
[2022-11-11 11:55] VITALS: BP 120/71
--- NOTE | 2022-11-11 12:12 | Short Stay Summary-Hospitalist ---
KEMI FARLEY 11/11/22 1212: History of Present Illness HPI/Chief Complaint Nikolai Black is a 47 year-old male with medical history of type 2 diabetes, a lcohol use disorder, cirrhosis, & GERD who presented to the [facility] ED the evening of 11/10 reporting significant fatigue, excessive thirst x1 week, and blood glucose of 487. He is prescribed metformin and glipizide but cannot say what doses nor the last time he took these meds. 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 He is al so prescribed several medications for cirrhosis, including lactulose, but is unsure of the names as well as the last time hed taken any of them. Review of systems was negative for pain, headache, changes in vision or hearing, fever/chills, chest pain, shortness of breath, nausea/vomiting/diarrhea, urinary issues, tingling/numbness. In the ED, Mr. Anderson blood glucose level was 453, anion gap 16, ammonia 102, B-hydroxybutyrate 0.36. Blood gas showed pH 7.38 with PCO2 of 33. Serum alcohol levels were elevated (113). Urinalysis was negative for ketones but showed 3+ glucose. Labs also showed pancytopenia (WBC 2.5, RBC 4.12, Plt 37). An insulin drip was started, and fluids and electrolytes were replaced. CIWA protocol was initiated to monitor for symptoms of alcohol withdrawal. He was admitted to the ICU with diagnoses of hyperglycemia, elevated anion gap, alcohol intoxication, DKA vs alcoholic ketosis, & hepatic encephalopathy. Source: patient, RN/, RN notes reviewed Exam Limitations: no limitations Date Seen 11/11/22 Time Seen by a Provider: 11:00 Attending Physician Galindo Siddiqui MD PCP Admitting Physician: Yadi Pena DO Attending Physician: Yadi Pena DO Referring Physician Date of Admission Nov 11, 2022 at 00:10 Home Medications & Allergies Home Medications Reviewed patient Home Medication Reconciliation performed by pharmacy medication reconciliations computer systems technician and/or nursing. Patients Allergies have been reviewed. Allergies Allergies Coded Allergies No Known Drug Allergies ([id number]/27/19) Past Medical/Social/Family Hx Patient Social History Tobacco Use?: Yes Tobacco type used: Cigarettes Smoking Status: Current Everyday Smoker Smokeless Tobacco Frequency: Never a User E-Cig and/or Vaping Freq: Never a User Substance use?: No Alcohol Use?: Yes Alcohol type: Hard Liquor Alcohol Frequency: Couple times a week Pt stated abuse/neglect: No Immunizations Up To Date Influenza Vaccine Up-to-Date: No; Not Current First/Initial COVID19 Vaccinat: 2020 Second COVID19 Vaccination Jeremy: 2020 Current Status Advance Directives: No Communicates: Verbally Primary Language: [place] Preferred Spoken Language: [place] Is interpretation needed?: No Implanted or Applied Medical D: None Family Medical History Family Hx: SOCIAL HISTORY: -SMOKES 1 PPD -ETOH--HISTORY OF ABUSE -DRUGS --DENIES USE Review of Systems Constitutional: see HPI EENTM: see HPI Respiratory: see HPI Cardiovascular: see HPI Gastrointestinal: see HPI Genitourinary: see HPI Musculoskeletal: see HPI Skin: see HPI Psychiatric/Neurological: See HPI Physical Exam Physical Exam Vital Signs Vital Signs - First Documented 11/10/22 22:50 Temp 36.5 Pulse 71 Resp 18 B/P (MAP) 137/79 (98) Pulse Ox 96 O2 Delivery Room Air Capillary Refill : Less Than 3 Seconds Height, Weight, BMI Height: 6'" Weight: 240lbs. oz. 108.945596by; 37.43 BMI Method:Stated General Appearance: No Apparent Distress, WD/WN, Obese, Other (VERY FLAT AFFECT AND SOMEWHAT SLOW MENTATION; SMELLS OF CIGARETTES AND ALCOHOL) HEENT: PERRL/EOMI, Other (ORAL MUCOSA DRY) Neck: Normal Inspection Respiratory: Normal Breath Sounds, No Accessory Muscle Use, No Respiratory Distress Cardiovascular: Regular Rate, Rhythm, No Edema, No JVD, No Murmur, Normal Peripheral Pulses Gastrointestinal: Normal Bowel Sounds, Non Tender, Soft Back: No CVA Tenderness Extremity: Normal Capillary Refill, Normal Inspection, No Pedal Edema Neurologic/Psychiatric: Alert, Oriented x3 (BUT POOR MEMORY), No Motor/Sensory Deficits, 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 Short Stay Diagnosis Discharge Diagnosis-Short Stay Admission Diagnosis T2DM Hyperglycemia Elevated anion gap Alcohol intoxication Alcohol use disorder DKA vs alcoholic ketosis Hepatic encephalopathy Cirrhosis Final Discharge Diagnosis T2DM Hyperglycemia Elevated anion gap Alcohol intoxication Alcohol use disorder Alcoholic ketosis Cirrhosis Pancytopenia Conclusion Plan Hyperglycemia, T2DM Elevated anion gap DKA vs alcoholic ketosis - Blood glucose reportedly 487 prior to arrival in ED, 453 in ED - 3+ glucose on urinalysis, negative for ketones - AG initially 16 in ED, down to 8 morning of 11/11 - Bicarb initially 14, now 18 morning of 11/11 - ABG results in ED: 7.38/33/78/20 - B-hydroxybutyrate only mildly elevated at 0.36 - IV insulin given, & fluids/electrolytes replaced Plan: Mr. Black is very eager to discharge today. Reports he has never taken insulin in the past, but agreed to our suggestion that he start Levemir 20u BID for glucose control as a bridge until his appointment with Dr. Linder in [place] on 11/16/22. He states he has a glucose monitor at home and all necessary supplies. He will need diabetes education and coaching on lifestyle modificat ions pertaining to T2DM control. Alcohol use disorder Cirrhosis Concern for hepatic encephalopathy - Elevated serum alcohol levels in ED (113) - Total bili 2.0, AST 64, ALT 49, alk phos 173, ammonia 102 - A&O x4 this morning; No asterixis noted on exam - IV thiamine given - CIWA protocol Plan: Strongly encouraged abstinence from alcohol and regular follow-up with PCP & liver specialist Pancytopenia - WBC 2.5, RBC 4.12, Plt 37 Plan: follow-up on these results as an outpatient YADI PENA DO 11/12/22 0737: Supervisory-Addendum Brief Verification & Attestation Participated in pt care: history, MDM, physical Personally performed: exam, history, MDM, supervision of care Care discussed with: Medical Student Procedures: n/a Results interpretation: Verified all documentation Verification and Attestation of Medical Student E/M Service A medical student performed and documented this service in my presence. I reviewed and verified all information documented by the medical student and made modifications to such information, when appropriate. I personally performed the physical exam and medical decision making. Yadi Pena, Nov 12, 2022,07:37 KEMI FARLEY Nov 11, 2022 12:12 YADI PENA DO Nov 12, 2022 07:37
== END 2022-11-11 11:55 | disposition home or self-care (01) | DRG 441 ==
LOC: EDUNIT# 22:42 → ER 22:43 → ICU 11-11 00:10
PROVIDERS: ADMIT Internal Medicine; ATTEND Internal Medicine
DX: K76.82 Hepatic encephalopathy (principal); E11.10 Type 2 diabetes mellitus with ketoacidosis without coma; D61.818 Other pancytopenia; K70.30 Alcoholic cirrhosis of liver without ascites; Z79.84 Long term (current) use of oral hypoglycemic drugs; Z79.899 Other long term (current) drug therapy; F17.210 Nicotine dependence, cigarettes, uncomplicated; K21.9 Gastro-esophageal reflux disease without esophagitis; F41.9 Anxiety disorder, unspecified; F32.A Depression, unspecified; Z91.119 Patient's noncompliance with dietary regimen due to unspecified reason; F10.129 Alcohol abuse with intoxication, unspecified
CPT/HCPCS: 36415; 80048; 80053; 80306; 80320; 81000; 82010; 82140; 82150; 82805; 82947; 83036; 83605; 83690; 83735; 84100; 85025; 85610; 85730; 87081; 87389; 93005; 93041